=== PATIENT | male | born 1945 | race Caucasian/White ===

== ENCOUNTER 2016-08-03 09:42 | Day surgery (SDC) | payer MEDICARE, OTHER ==
[~2016-08-03] VITALS: Ht 177.8 cm; Wt 106.6 kg
[~2016-08-03 09:42] MED LIST changes: -CATHETER FLUSH 10 ML SYR IV PRN; -REGADENOSON 0.4 MG/5 ML SYR (LEXISCAN) IV ONE
[2016-08-03] MEDS ORDERED: NS IV 1000 ML 1,000 ML ONE (09:47)
[2016-08-03] MEDS ORDERED: HEParin (CATH LAB) 2,000 ML IV ONE ×2 (09:47→13:06)
[2016-08-03] MEDS ORDERED: NS IV 1000 ML 1,000 ML IV SCH ×2 (10:41→14:07)
[2016-08-03 10:47] VITALS: BP 151/64
[2016-08-03 10:52] LABS: BILIRUBIN,URINE NEGATIVE (NEGATIVE); KETONES,URINE NEGATIVE (NEGATIVE); LEUKOCYTE ESTERASE ,URINE NEGATIVE (NEGATIVE); NITRITE,URINE NEGATIVE (NEGATIVE); PH,URINE 5 (5-9); PROTEIN,URINE 1+ (NEGATIVE); RED BLOOD COUNT 4.75 10^6/uL (4.35-5.85); RED CELL DISTRIBUTION WIDTH 14.2 % (10.0-14.5); UROBILINOGEN,URINE NORMAL (NORMAL); WHITE BLOOD COUNT 9.3 10^3/uL (4.3-11.0)
[2016-08-03 10:59] LABS: WBC,URINE 0-2 /HPF
--- NOTE | 2016-08-03 11:05 | Diagnostic Imaging Report ---
EXAMINATION: Portable upright radiograph of the chest. INDICATION: Abnormal stress test. COMPARISON: 03/18/15. FINDINGS: The heart size is mildly enlarged. There is a minimal vascular congestion. No effusion or pneumothorax. The mediastinum and julia appear unremarkable. IMPRESSION: Cardiomegaly. Minimal vascular congestion. Dictated by: Dictated on workstation # [id number]
[2016-08-03 11:06] LABS: PROTHROMBIN TIME PATIENT 13.1 SEC (12.2-14.7)
[2016-08-03] MEDS ORDERED: MIDAZOLAM 5 MG/5 ML (VERSED) VIAL ONE (11:13)
[2016-08-03] MEDS ORDERED: fentaNYL INJECTION 100 MCG/2 ML AMP ONE (11:13)
[2016-08-03 11:14] LABS: ALANINE AMINOTRANSFERASE 20 U/L (0-55); ALBUMIN 4.2 G/DL (3.2-4.5); ANION GAP 13 MMOL/L (5-14); ASPARTATE AMINO TRANSFERASE 19 U/L (5-34); BILIRUBIN,TOTAL 0.7 MG/DL (0.1-1.0); BLOOD UREA NITROGEN 14 MG/DL (7-18); BUN/CREATININE RATIO 15; CALCIUM 9.6 MG/DL (8.5-10.1); CARBON DIOXIDE 20 MMOL/L (21-32); CHLORIDE 107 MMOL/L (98-107); CHOLESTEROL 232 MG/DL (< 200); CREATININE SERUM 0.93 MG/DL (0.60-1.30); DIRECT LDL 58 MG/DL (1-129); GFR ESTIMATED > 60; GLUCOSE 144 MG/DL (70-105); POTASSIUM 4.2 MMOL/L (3.6-5.0); SODIUM 140 MMOL/L (135-145); TOTAL PROTEIN 7.9 G/DL (6.4-8.2); TRIGLYCERIDES 665 MG/DL (<150); VLDL CHOLESTEROL 133 MG/DL (5-40)
--- NOTE | 2016-08-03 11:16 | Cardiac Procedure Note-CS/ASA ---
Pre-Procedure Note Pre-Op Procedure Note H&P Reviewed The H&P was reviewed, patient examined and no changes noted. Date H&P Reviewed: Aug 03, 2016 Time H&P Reviewed: 11:16 Conscious Sedation Pre-Proced Time Reviewed: 11:16 ASA Class: 2, 3 Airway Mallampati Classification: (twenty-nine palms appropriate class) I. II. III, IV Lungs Heart ASA score ASA 1: a normal healthy patient ASA 2: a patient with a mild systemic disease (mid diabetes, controlled hypertension, obesity x ASA 3: a patient with a severe systemic disease that limits activity (angina , COPD, prior Myocardial infarction) ASA 4: a patient with an incapacitating disease that is a constant threat to life (CHF, renal failure) ASA 5: a moribund patient not expected to survive 24 hrs. (ruptured aneurysm) ASA 6: a declared brain patient whose organs are being harvested. For emergent operations, add the letter E after the classification Grade 3 Sedation Plan: Analgesia, Amnesia, Plan communicated to team members, Discussed options with patient/fam, Discussed risks with patient/fam Note The patient is an appropriate candidate to undergo the planned procedure, sedation, and anesthesia. The patient immediately re-assessed prior to indication. ELISEO VALENTINO MD Aug 03, 2016 11:16
--- NOTE | 2016-08-03 11:16 | Cardiology History & Physical ---
HPI-Cardiology Cardiology Consultation Date of Consultation 08/03/16 Date of Admission Time Seen by Provider: 09:00 Indication: chest pain HPI 70 years old gentleman with history of diabetes mellitus, hypertension hyperlipidemia, history of DVT and PE in the past. Patient has been having occasional episode of chest pain described it as dull in nature in the retrosternal area, shortness of breath, patient was having a stress test this morning had significant EKG changes. He has significant ischemia. Dr. Freed requested that I evaluated the patient and I met him visited with him we discussed management plan and he agreed on proceeding with cardiac catheterization. He denied any active chest pain at this point, denied any shortness of breath. Denied any palpitation, syncope or near syncopal episodes. PMH-Cardiology Immunizations Up To Date Tetanus Booster (DTap): More than 5yrs Date of Pneumonia Vaccine: Nov 25, 2012 Date of Influenza Vaccine: Nov 25, 2014 Seasonal Allergies Seasonal Allergies: No Surgeries HX Surgeries: Yes (ING HERNIA, ESWL X2, WOUND DEBRIDEMENT ON RIGHT LEG) Surgeries: Vasectomy Respiratory Hx Respiratory Disorders: No Cardiovascular Hx Cardiovascular Disorders: Yes Cardiac Disorders: High Cholesterol, Hypertension Neurological Hx Neurological Disorders: No Reproductive System Hx Reproductive Disorders: No Genitourinary Hx Genitourinary Disorders: Yes Genitourinary Disorders: Kidney Stones Gastrointestinal Hx Gastrointestinal Disorders: No Musculoskeletal Hx Musculoskeletal Disorders: No Musculoskeletal Disorders: Arthritis Endocrine Hx Endocrine Disorders: Yes Endocrine Disorders: Hypothyroidsim, Diabetes, Non-Insulin dep HEENT HX ENT Disorders: No (small cataract) Hearing Impairment: Hard of Hearing Cancer Hx Cancer: No Cancer: Bladder Psychosocial Hx Psychiatric Problems: Yes Behavioral Health Disorders: Depression Integumentary HX Skin/Integumentary Disorder: Yes (cellulitis) Skin/Integumentary Disorders: Recent Skin Changes Blood Transfusions Hx Blood Disorders: No (hx of P.E.) Adverse Reaction to a Blood Tr: No Other PMHx Other PMHx: past medical history as discussed below Social History Patient Social History Marrital Status: Employed/Student: employed Alcohol Use: Denies Use Smoking: Former smoker Dip or chew tobacco?: No Recent Foreign Travel: No Contact w/other who traveled: No Recent Infectious Disease Expo: No Family Hx Significant Family History: Cancer Other family history of heart disease. Hypertension ROS-Cardiology Review of Systems Date Seen by Provider: Aug 03, 2016 Time Seen by Provider: 11:16 General: No Chills, No Night Sweats, No Fatigue, No Malaise, No Appetite HEENT: No Head Aches, No Visual Changes, No Eye Pain, No Ear Pain, No Dysphasia , No Sinus Congestion, No Post Nasal Drip, No Sore Throat Pulmonary: Dyspnea, No Cough, No Pleuritic Chest Pain Cardiovascular: Chest Pain, Edema, No: Lt Headedness, Orthopnea, Palpitations, Paroxysmal Noc. Dyspnea Gastrointestinal: No: Abdominal Pain, Constipation, Diarrhea, Hematochezia, Melena, Nausea, Vomiting Genitourinary: No Dysuria, No Frequency, No Incontinence, No Hematuria, No Retention Musculoskeletal: No: arm pain, back pain, foot pain, hand pain, leg pain, neck pain, shoulder pain Neurological: No: Change in speech, Confusion, Incoordination, Numbness, Seizures, Weakness Home Medications & Allergies Allergies: Coded Allergies: NKANo Known Allergies (Verified Allergy, Unknown, 05/18/05) Home Medication List Reviewed: Yes Exam-Cardiology Vital Signs Vital Signs Date Time Temp Pulse Resp B/P (MAP) Pulse Ox O2 Delivery O2 Flow Rate FiO2 08/03/16 10:47 97.9 88 18 151/64 98 Room Air Exam General Appearance: Alert, Oriented X3, Cooperative, No Acute Distress HEENT: Atraumatic, PERRLA Respiratory: Clear to Auscultation, Normal Air Movement Cardiovascular: Regular Rate, Normal S1, Normal S2, No Murmurs Abdominal: Normal Bowel Sounds, Soft, No Tenderness, No Hepatosplenomegaly, No Masses Extremities: No Clubbing, No Cyanosis, No Edema, Normal Pulses, No Tenderness/ Swelling Skin: No Rashes, No Breakdown, No Significant Lesion Neuro: Normal Gait, Normal Speech, Strength at 5/5 X4 Ext, Normal Tone, Sensation Intact Psych/Mental Status: Mental Status NL, Mood NL Results Labs Labs Laboratory Tests 08/03/16 10:10: White Blood Count 9.3, Red Blood Count 4.75, Hemoglobin 14.1, Hematocrit 41, Mean Corpuscular Volume 85, Mean Corpuscular Hemoglobin 30, Mean Corpuscular Hemoglobin Concent 35, Red Cell Distribution Width 14.2, Platelet Count 160, Mean Platelet Volume 11.0H, Prothrombin Time 13.1, INR Comment 1.0, Activated Partial Thromboplast Time 28, Urine Color YELLOW, Urine Clarity CLEAR, Urine pH 5, Urine Specific [place] 1.020, Urine Protein 1+H, Urine Glucose (UA) NEGATIVE , Urine Ketones NEGATIVE, Urine Nitrite NEGATIVE, Urine Bilirubin NEGATIVE, Urine Urobilinogen NORMAL, Urine Leukocyte Esterase NEGATIVE, Urine RBC (Auto) 2 +H, Urine RBC NONE, Urine WBC 0-2, Urine Squamous Epithelial Cells 2-5, Urine Crystals NONE, Urine Bacteria NEGATIVE, Urine Casts NONE, Urine Mucus NEGATIVE, Urine Culture Indicated NO A/P-Cardiology Admission Diagnosis Chest pain nonspecific etiology Coronary artery disease Hypertension Diabetes mellitus Assessment/Plan chest pain nonspecific etiology resembling angina. Planning to proceed with cardiac catheterization Coronary artery disease, abnormal stress test with ischemia involving the whole anterior wall anteroapical segment. Patient underwent stress test this morning had significant EKG changes with ischemic changes on her SPECT images, discussed the management plan for treatment with cardiac catheterization, planning to proceed with the procedure today. 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 Managed by primary physical sciences instructor. History of foot ulcer after his DVT, probably secondary to venous insufficiency. Underwent management by wound care. Doing better at this time. ELISEO VALENTINO MD Aug 03, 2016 11:16
[2016-08-03] MEDS ORDERED: HEParin 1000 UNIT/ML (10ML VIAL) FOR BOLUS ONE (13:41)
[2016-08-03] MEDS ORDERED: NITROGLYCERIN DRIP 25 MG/D5W 0 ML IV ONE (13:44)
--- NOTE | 2016-08-03 14:04 | Short Stay Summary ---
History of Present Illness History of Present Illness Reason for visit/HPI chest pain 70 years old gentleman with history of diabetes mellitus, hypertension hyperlipidemia, history of DVT and PE in the past. Patient has been having occasional episode of chest pain described it as dull in nature in the retrosternal area, shortness of breath, patient was having a stress test this morning had significant EKG changes. He has significant ischemia. Dr. Freed requested that I evaluated the patient and I met him visited with him we discussed management plan and he agreed on proceeding with cardiac catheterization. He denied any active chest pain at this point, denied any shortness of breath. Denied any palpitation, syncope or near syncopal episodes. Date of Admission August 03, 2016 Date of Discharge August 03, 2016 Time Seen by Provider: 13:58 Attending Physician Eliseo Agudelo MD Admitting Physician Genaro Freed DO Consult Allergies and Home Medications Allergies Coded Allergies: NKANo Known Allergies (Verified Allergy, Unknown, 05/18/05) Home Medications Aspirin 81 Mg Tablet.dr, 81 MG PO DAILY, (Reported) Ergocalciferol (Vitamin D2) 50,000 Unit Capsule, 50,000 UNIT PO Mo, (Reported) Escitalopram Oxalate 20 Mg Tablet, 20 MG PO DAILY, (Reported) Levothyroxine Sodium 50 Mcg Tablet, 50 MCG PO DAILY, (Reported) Lisinopril 20 Mg Tablet, 40 MG PO DAILY, (Reported) TAKES 2 (20MG) TABLETS Multivitamin 1 Each Tablet, 1 TAB PO DAILY, (Reported) Meridian 3 Polyunsat Fatty Acids 1,000 Mg Cap, 1,000 MG PO DAILY, (Reported) Rivaroxaban 20 Mg Tablet, 20 MG PO DAILY, (Reported) Past Wpriiir-Cmgruw-Clssel Hx Patient Social History Marrital Status: Employed/Student: employed Alcohol Use: Denies Use Recent Foreign Travel: No Contact w/other who traveled: No Recent Infectious Disease Expo: No Immunizations Up To Date Tetanus Booster (TDap): More than 5yrs Date of Pneumonia Vaccine: Nov 25, 2012 Date of Influenza Vaccine: Nov 25, 2014 Seasonal Allergies Seasonal Allergies: No Surgeries HX Surgeries: Yes (ING HERNIA, ESWL X2, WOUND DEBRIDEMENT ON RIGHT LEG) Surgeries: Abdominal, Renal, Vasectomy Respiratory Hx Respiratory Disorders: No Cardiovascular Hx Cardiovascular Disorders: Yes Cardiac Disorders: Chronic Edema/Swelling, Deep Vein Thrombosis, High Cholesterol, Hypertension Neurological Hx Neurological Disorders: No Reproductive System Hx Reproductive Disorders: No Genitourinary Hx Genitourinary Disorders: Yes Genitourinary Disorders: Kidney Stones Gastrointestinal Hx Gastrointestinal Disorders: No Musculoskeletal Hx Musculoskeletal Disorders: No Musculoskeletal Disorders: Arthritis Endocrine Hx Endocrine Disorders: Yes Endocrine Disorders: Hypothyroidsim, Diabetes, Non-Insulin dep HEENT HX ENT Disorders: No (small cataract) Hearing Impairment: Hard of Hearing Cancer Hx Cancer: No Cancer: Bladder Psychosocial Hx Psychiatric Problems: Yes Behavioral Health Disorders: Depression Integumentary HX Skin/Integumentary Disorder: Yes (cellulitis) Skin/Integumentary Disorders: Recent Skin Changes Blood Transfusions Hx Blood Disorders: No (hx of P.E.) Adverse Reaction to a Blood Tr: No Family Medical History Significant Family History: Cancer Constitutional: see HPI EENTM: see HPI Respiratory: see HPI, dyspnea on exertion Cardiovascular: see HPI, chest pain Gastrointestinal: see HPI Genitourinary: see HPI Musculoskeletal: see HPI Skin: see HPI Psychiatric/Neurological: No Symptoms Reported, See HPI Physical Exam Vital Signs Vital Sign - Last 12Hours 08/03/16 10:47 Temp 97.9 Pulse 88 Resp 18 B/P (MAP) 151/64 Pulse Ox 98 O2 Delivery Room Air Capillary Refill : General Appearance: No Apparent Distress, WD/WN Eyes: Bilateral Eye EOMI, Bilateral Eye Normal Inspection, Bilateral Eye PERRL HEENT: PERRL/EOMI, TMs Normal, Normal ENT Inspection, Pharynx Normal Neck: Full Range of Motion, Normal Inspection, Non Tender, Supple, Carotid Bruit Respiratory: Chest Non Tender, Lungs Clear, Normal Breath Sounds, No Accessory Muscle Use, No Respiratory Distress Cardiovascular: Regular Rate, Rhythm, No Edema, No Gallop, No JVD, No Murmur, Normal Peripheral Pulses Gastrointestinal: Normal Bowel Sounds, No Organomegaly, No Pulsatile Mass, Non Tender, Soft Back: Normal Inspection, No CVA Tenderness, No Vertebral Tenderness Extremity: Normal Capillary Refill, Normal Inspection, Normal Range of Motion, Non Tender, No Calf Tenderness, No Pedal Edema Neurologic/Psychiatric: Alert, Oriented x3, No Motor/Sensory Deficits, Normal Mood/Affect Skin: Normal Color, Warm/Dry Lymphatic: No Adenopathy Short Stay Diagnosis Discharge Diagnosis-Short Stay Admission Diagnosis: Chest pain nonspecific etiology Coronary artery disease Hypertension Diabetes mellitus Final Discharge Diagnosis: Chest pain nonspecific etiology Coronary artery disease Hypertension Diabetes mellitus Conclusion Labs Laboratory Tests 08/03/16 10:10: White Blood Count 9.3, Red Blood Count 4.75, Hemoglobin 14.1, Hematocrit 41, Mean Corpuscular Volume 85, Mean Corpuscular Hemoglobin 30, Mean Corpuscular Hemoglobin Concent 35, Red Cell Distribution Width 14.2, Platelet Count 160, Mean Platelet Volume 11.0H, Prothrombin Time 13.1, INR Comment 1.0, Activated Partial Thromboplast Time 28, Urine Color YELLOW, Urine Clarity CLEAR, Urine pH 5, Urine Specific [place] 1.020, Urine Protein 1+H, Urine Glucose (UA) NEGATIVE , Urine Ketones NEGATIVE, Urine Nitrite NEGATIVE, Urine Bilirubin NEGATIVE, Urine Urobilinogen NORMAL, Urine Leukocyte Esterase NEGATIVE, Urine RBC (Auto) 2 +H, Urine RBC NONE, Urine WBC 0-2, Urine Squamous Epithelial Cells 2-5, Urine Crystals NONE, Urine Bacteria NEGATIVE, Urine Casts NONE, Urine Mucus NEGATIVE, Urine Culture Indicated NO, Sodium Level 140, Potassium Level 4.2, Chloride Level 107, Carbon Dioxide Level 20L, Anion Gap 13, Blood Urea Nitrogen 14, Creatinine 0.93, Estimat Glomerular Filtration Rate > 60, BUN/Creatinine Ratio 15, Glucose Level 144H, Calcium Level 9.6, Total Bilirubin 0.7, Aspartate Amino Transf (AST/SGOT) 19, Alanine Aminotransferase (ALT/SGPT) 20, Alkaline Phosphatase 79, Total Protein 7.9, Albumin 4.2, Triglycerides Level 665H, Cholesterol Level 232H, LDL Cholesterol Direct 58, VLDL Cholesterol 133H, HDL Cholesterol 37L Conclusion/Plan chest pain nonspecific etiology resembling angina. Coronary artery disease, abnormal stress test with ischemia involving the whole anterior wall anteroapical segment. Patient underwent stress test this morning had significant EKG changes with ischemic changes on her SPECT images, cardiac catheterization showed severe disease in the mid LAD involving ostium of the diagonal artery, severe disease in the proximal dominant right coronary artery, ROSANA decreased left ventricular systolic function, planning to proceed with transfer to [facility] Dr. Powers was contacted, arrangements for evaluation for CABG was made. 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 Managed by primary compound mixer. History of foot ulcer after his DVT, probably secondary to venous insufficiency. Underwent management by wound care. Doing better at this time. ELISEO AGUDELO MD Aug 03, 2016 14:04
--- NOTE | 2016-08-03 14:05 | Cardiology Post Procedure Note ---
Post-Procedure Note Physician (s)/Washing Machine Loader And Puller (s) Physician ELIESO VALENTINO MD Pre-Procedure Diagnosis Pre-Procedure Diagnosis: open wound x2 right lower extremity Post-Procedure Note Procedure Start Date: Aug 03, 2016 Procedure Start Time: 14:05 Name of Procedure: [facility] Findings/Procedure Note CAD Anesthesia Type: Conscious Sedation Estimated blood loss (mL): 10 Contrast Amount: 64 Post-Procedure Diagnosis Post-operative diagnosis: CAD ELISEO VALENTINO MD Aug 03, 2016 14:05
--- NOTE | 2016-08-03 14:11 | Discharge Inst-Post CATH ---
Discharge Inst-CATH Post Cardiac Cath D/C Inst Follow Up/Plan Transfer to [facility] CARDIAC CATH DISCHARGE INSTRUCTIONS *Hold Metformin for 48 hours post heart cath. ACTIVITY * Go Home directly and rest. * Limit activity of the leg (or wrist if it was used) for 7 days including aerobics, swimming, jogging, bicycling, etc. * Restrict stair-climbing for 7 days if possible, if not, climb up with your non -cath leg, then bring together on the same step. * Avoid lifting, pushing, pulling or excessive movement of the affected extremity for 7 days. * Customary sexual activity may be resumed after 2 days-use caution not to use a position that strains or causes pain to the affected extremity. * No driving for 24 hours. * NO SMOKING. * Avoid straining for bowel movements for 7 days. * Gentle walking on level ground is allowed. * Returning to work will depend on the type of procedure and the results. Your doctor will discuss this with you. CALL YOUR DOCTOR FOR ANY OF THE FOLLOWING: *If bleeding from the puncture site occurs- Apply gentle pressure to site with clean cloth and call your doctor or EMS. * If a knot or lump forms under the skin, increases in size, or causes pain. * If bruising appears to be worsening or moving further down your leg instead of disappearing. * Temperature above 101 F. CARE OF YOUR GROIN INCISION; * Bruising or purple discoloration of the skin near the puncture site is common. * You may shower only, no bathtub bathing for 5 days. Be careful to avoid slipping as your leg may feel stiff. * If a closure device was used on your femoral artery, please see the attached guide regarding care of the device and your leg. * REMOVE the dressing from your groin the next day after your procedure in the shower. CARE OF YOUR WRIST INCISION; * Bruising or purple discoloration of the skin near the puncture site is common. * You may shower. * DO NOT submerge wrist. * Remove dressing in 24 hours. ELISEO VALENTINO MD Aug 03, 2016 14:10
[2016-08-03] MEDS ORDERED: PATIENT MAY USE OWN MEDS, ALL PO SCH (14:15)
[2016-08-03 14:22] VITALS: BP 144/91
[2016-08-03 15:31] VITALS: BP 125/63
[2016-08-03 16:00] VITALS: BP 126/69
--- NOTE | 2016-08-03 16:33 | CARDIAC CATHETERIZATION ---
DATE OF SERVICE: 08/03/2016 BRIEF HISTORY: The patient is a 70-year-old gentleman admitted with acute chest pain, had an abnormal stress test done earlier today. He was brought for cardiac catheterization and possible PTCA. PROCEDURE: After explaining the procedure to the patient, all pros and cons were explained, all questions were answered. The patient signed the consent then he was placed on the cardiac catheterization laboratory. The right groin was prepped in sterile fashion. Local anesthesia applied per right groin. A 6 Cypriot sheath was placed in the right femoral artery. A combination of right and left Darrell catheters were used to access the right and left coronary system. Multiple views were obtained. Pigtail catheter advanced to the left ventricle. Left ventriculogram was done. Pullback LV to aorta was done. Aortic arch angiogram was done. At that point sheath was removed, Mynx device deployed, hemostasis achieved. FINDINGS HEMODYNAMICS: LV Pressure 116/17, end diastolic pressure of 17, aortic pressure is 126/71, mean of 65. ANATOMY: 1. Left main coronary artery bifurcates into LAD and circumflex artery with no obstructive disease. 2. Left anterior descending artery is moderate in size, 95% stenosis involving the proximal to mid LAD. Long lesion involving the ostium of a second diagonal branch. 3. Left circumflex artery is a nondominant artery with mild disease, nonobstructive disease. 4. Right coronary artery is a large dominant artery with ulcerative plaque in the proximal portion with 95% stenosis. 6. Left ventriculogram was done in the left anterior oblique position. The left ventricle is normal in size, mild diffuse left ventricular hypokinesia with an estimated ejection fraction of 40% to 45%. 7. Aortic arch angiogram: Aortic arch is normal in size, mild hypertensive changes. Origin of the great neck vessels appeared normal. CONCLUSION: 1. Severe 3 vessel disease including a long segment of 95% stenosis in the proximal to mid LAD involving the ostium of the second diagonal branch. Severe stenosis with ulcerated plaque in the proximal right coronary artery that is large dominant artery. 2. Normal left ventricular size with mild diffuse left ventricular hypokinesia, more pronounced at the inferior wall, hypokinesia at the anterior wall. Estimated ejection fraction 40% to 45%. 3. Hypertensive changes in the aortic arch. DISCUSSION AND RECOMMENDATIONS: The patient will be transferred for evaluation for CABG or high risk complex intervention. Job ID: [id number] DocumentID: [id number] Dictated Date: 08/03/2016 14:09:40 Quill Winder Date: 08/03/2016 16:32:19 Dictated By: ELISEO VALENTINO MD
[2016-08-03 17:00] VITALS: BP 125/69
[2016-08-03 17:55] VITALS: BP 126/80
--- OUTSIDE RECORDS SUMMARY | 2016-08-13 17:01 | XMS REPORT | Continuity of Care Document ---
Author Author [facility] Organization [facility] Address Unknown Phone Unavailable Allergies Active Description Code Type Severity Reaction Onset Reported/Identified Relationship to Patient Clinical Status Yes NKANo Known Allergies NKA Miscellaneous Allergy Unknown N/ A 05/18/2005 Medications Problems Date Dx Coded Attending Type Code Diagnosis Diagnosed By 05/17/2011 Ot 250.00 DIAB JHONNY WO COMPL, TYPE II OR UNSPEC TY 05/17/2011 Ot 592.0 CALCULUS OF KIDNEY 05/17/2011 Ot 592.1 CALCULUS OF URETER 10/04/2011 Ot 592.0 CALCULUS OF KIDNEY 10/04/2011 Ot V58.69 OTH MED,LT,CURRENT USE 12/01/2011 Ot 244.9 HYPOTHYROIDISM NOS 12/01/2011 Ot 250.00 DIAB JHONNY WO COMPL, TYPE II OR UNSPEC TY 12/01/2011 Ot 272.4 HYPERLIPIDEMIA NEC/NOS 12/01/2011 Ot 278.00 OBESITY, NOS 12/01/2011 Ot 287.5 THROMBOCYTOPENIA NOS 12/01/2011 Ot 401.0 MALIGNANT HYPERTENSION 12/01/2011 Ot 453.41 ACUTE VENOUS EMBOLISM THROMBOSIS DEEP 12/01/2011 Ot V85.33 BODY MASS INDEX 33.0-33.9, ADULT 09/15/2014 Ot 592.0 09/15/2014 Ot 592.0 09/15/2014 Ot 592.1 09/15/2014 Ot 592.0 09/15/2014 Ot 592.1 09/15/2014 Ot 592.0 09/15/2014 Ot 592.1 09/15/2014 Ot 592.0 09/15/2014 Ot V72.63 09/15/2014 Ot V74.8 09/15/2014 Ot 592.1 09/15/2014 Ot 592.0 09/15/2014 Ot 592.0 09/15/2014 Ot V72.83 09/15/2014 Ot V74.8 09/15/2014 Ot 592.0 09/15/2014 LENORA BURTON Ot 241.0 09/15/2014 JOVAN BURTON DO Ot 241.0 09/15/2014 Ot 592.0 09/15/2014 Ot 592.0 09/15/2014 Ot 592.1 09/15/2014 Ot 592.0 09/15/2014 Ot 592.1 09/15/2014 Ot 592.0 09/15/2014 Ot 592.1 09/15/2014 Ot 592.0 09/15/2014 Ot V72.63 09/15/2014 Ot V74.8 09/15/2014 Ot 592.1 09/15/2014 Ot 592.0 09/15/2014 Ot 592.0 09/15/2014 Ot V72.83 09/15/2014 Ot V74.8 09/15/2014 Ot 592.0 09/15/2014 LENORA BURTON AGILE SCRUM MASTER Ot 241.0 09/15/2014 JOVAN BURTON DO Ot 241.0 09/15/2014 LENORA BURTON AGILE SCRUM MASTER Ot 241.0 09/15/2014 JOVAN BURTON DO Ot 241.0 09/15/2014 LAURA PANTOJA, AYSHA Villar Ot 276.2 ACIDOSIS 09/15/2014 LAURA PANTOJA, AYSHA Villar Ot 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.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/INFARCT 09/15/2014 LAURA PANTOJA, AYSHA Villar Ot 682.6 CELLULITIS OF LEG 09/15/2014 LAURA PANTOJA, AYSHA Villar Ot 786.05 SHORTNESS OF BREATH 03/15/2015 JOVAN BURTON DO Ot B96.20 UNSP ESCHERICHIA COLI THE CAUSE OF DI 03/15/2015 JOVAN BURTON DO Ot B96.89 OTH BACTERIAL AGENTS THE CAUSE OF DIS 03/15/2015 JOVAN BURTON DO Ot E03.9 HYPOTHYROIDISM, UNSPECIFIED 03/15/2015 JOVAN BURTON DO Ot E11.52 TYPE 2 DIABETES W DIABETIC PERIPHERAL AN 03/15/2015 JOVAN BURTON DO Ot E78.0 PURE HYPERCHOLESTEROLEMIA 03/15/2015 JOVAN BURTON DO Ot F32.9 MAJOR DEPRESSIVE DISORDER, SINGLE EPISOD 03/15/2015 JOVAN BURTON DO Ot I10 ESSENTIAL (PRIMARY) HYPERTENSION 03/15/2015 JOVAN BURTON DO Ot I77.6 ARTERITIS, UNSPECIFIED 03/15/2015 JOVAN BURTON DO Ot I82.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 EMBOLISM AND THROMBOSIS OF RIGHT 03/15/2015 JOVAN BURTON DO Ot I96 03/15/2015 JOVAN BURTON DO Ot L03.115 CELLULITIS OF RIGHT LOWER LIMB 03/15/2015 JOVAN BURTON DO Ot R21 RASH AND OTHER NONSPECIFIC SKIN ERUPTION 03/15/2015 JOVAN BURTON DO, Ot Z86.711 PERSONAL HISTORY OF PULMONARY EMBOLISM 03/18/2015 MICHEAL LENORA Nani LATIF Ot 241.0 03/18/2015 JOVAN BURTON DO Ot 241.0 03/21/2015 MATIAS ACEVEDO DO Ot 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 03/21/2015 MATIAS ACEVEDO DO Ot E03.9 HYPOTHYROIDISM, UNSPECIFIED 03/21/2015 MATIAS ACEVEDO DO Ot E11.9 TYPE 2 DIABETES MELLITUS WITHOUT COMPLIC 03/21/2015 MATIAS ACEVEDO DO Ot E66.01 MORBID (SEVERE) OBESITY DUE TO EXCESS CA 03/21/2015 MATIAS ACEVEDO DO Ot F32.9 MAJOR DEPRESSIVE DISORDER, SINGLE EPISOD 03/21/2015 MATIAS ACEVEDO DO Ot I10 ESSENTIAL (PRIMARY) HYPERTENSION 03/21/2015 MATIAS ACEVEDO DO Ot I77.6 ARTERITIS, UNSPECIFIED 03/21/2015 MATIAS ACEVEDO DO Ot I87.031 POSTTHROM SYNDROME W ULCER AND INFLAMMAT 03/21/2015 MATIAS ACEVEDO DO Ot I87.2 VENOUS INSUFFICIENCY (CHRONIC) (PERIPHER 03/21/2015 MATIAS ACEVEDO DO Ot I96 GANGRENE, NOT ELSEWHERE CLASSIFIED 03/21/2015 MATIAS ACEVEDO DO Ot L03.113 CELLULITIS OF RIGHT UPPER LIMB 03/21/2015 MATIAS ACEVEDO DO Ot L97.212 NON-PRESSURE CHRONIC ULCER OF RIGHT CALF 03/21/2015 MATIAS ACEVEDO DO Ot Z68.34 BODY MASS INDEX (BMI) 34.0-34.9, ADULT 03/21/2015 MATIAS ACEVEDO DO Ot Z79.01 WARNING COORDINATION METEOROLOGIST (CURRENT) USE OF ANTICOAGULANT 03/21/2015 MATIAS ACEVEDO DO Ot Z86.711 PERSONAL HISTORY OF PULMONARY EMBOLISM 03/21/2015 MATIAS ACEVEDO DO Ot Z86.718 PERSONAL HISTORY OF OTHER VENOUS THROMBO 03/23/2015 MICHEALLENORAP Ot 241.0 03/23/2015 MICHEAL JOVAN GARCÍA Ot 241.0 03/23/2015 STEPAN PANTOJA, NICCI Padilla Ot I87.031 03/23/2015 STEPAN PANTOJA, NICCI Padilla Ot I96 03/23/2015 STEPAN PANTOJA, NICCI Padilla Ot L03.115 03/23/2015 STEPAN PANTOJA, NICCI Padilla Ot L95.9 03/23/2015 STEPAN PANTOJA, NICCI Padilla Ot L97.213 04/11/2015 JASPER PANTOJA, RAJENDRA Sage Ot B95.61 04/11/2015 JASPER PANTOJA, RAJENDRA Sage Ot L03.115 04/12/2015 JASPER PANTOJA, RAJENDRA K Ot B95.61 04/12/2015 JASPER PANTOJA, RAJENDRA K Ot L03.115 04/13/2015 JASPER PANTOJA, RAJENDRA K Ot B95.61 04/13/2015 JASPER PANTOJA, RAJENDRA K Ot L03.115 04/14/2015 JASPER PANTOJA, RAJENDRA K Ot B95.61 04/14/2015 JASPER PANTOJA, RAJENDRA K Ot L03.115 04/15/2015 JASPER PANTOJA, RAJENDRA K Ot B95.61 04/15/2015 JASPER PANTOJA, RAJENDRA K Ot L03.115 04/16/2015 JASPER PANTOJA, RAJENDRA K Ot B95.61 04/16/2015 JASPER PANTOJA, RAJENDRA K Ot L03.115 04/16/2015 JASPER PANTOJA, RAJENDRA K Ot B95.61 04/16/2015 JASPER PANTOJA, RAJEDNRA K Ot L03.115 04/17/2015 JASPER PANTOJA, RAJENDRA K Ot B95.61 04/17/2015 JASPER PANTOJA, RAJENDRA Sage Ot L03.115 04/17/2015 JASPER PANTOJA, RAJENDRA K Ot B95.61 04/17/2015 JASPER PANTOJA, RAJENDRA K Ot L03.115 04/18/2015 JASPER PANTOJA, RAJENDRA K Ot B95.61 04/18/2015 JASPER PANTOJA, RAJENDRA K Ot L03.115 04/19/2015 JASPER PANTOJA, RAJENDRA Sage Ot B95.61 04/19/2015 JASPER PANTOJA, RAJENDRA Sage Ot L03.115 04/20/2015 JASPER PANTOJA, RAJENDRA Sage Ot B95.61 04/20/2015 JASPER PANTOJA, RAJENDRA Sage Ot L03.115 04/20/2015 JASPER PANTOJA, RAJENDRA Sage Ot B95.61 04/20/2015 JASPER PANTOJA, RAJENDRA Sage Ot L03.115 04/21/2015 JASPER PANTOJA, RAJENDRA Sage Ot B95.61 04/21/2015 JASPER PANTOJA, RAJENDRA Sage Ot L03.115 04/22/2015 JASPER PANTOJA, RAJENDRA Sage Ot B95.61 04/22/2015 JASPER PANTOJA, RAJENDRA Sage Ot L03.115 04/27/2015 JASPER PANTOJA, RAJENDRA Sage Ot B95.61 04/27/2015 JASPER PANTOJA, RAJENDRA Sage Ot L03.115 05/04/2015 STEPAN PANTOJA, NICCI Padilla Ot I87.031 05/04/2015 STEPAN PANTOJA, NICCI Padilla Ot I96 05/04/2015 STEPAN PANTOJA, NICCI Padilla Ot L03.115 05/04/2015 STEPAN PANTOJA, INCCI Padilla Ot L95.9 05/04/2015 STEPAN PANTOJA, NICCI Padilla Ot L97.213 05/06/2015 JASPER PANTOJA, RAJENDRA Sage Ot B95.61 05/06/2015 JASPER PANTOJA, RAJENDRA Sage Ot L03.115 05/09/2015 STEPAN PANTOJA, NICCI Padilla Ot I87.031 05/09/2015 STEPAN PANTOJA, NICCI Padilla Ot I96 05/09/2015 STEPAN PANTOJA, NICCI Padilla Ot L03.115 05/09/2015 STEPAN PANTOJA, NICCI Padilla Ot L95.9 05/09/2015 STEPAN PANTOJA, NICCI Padilla Ot L97.213 05/13/2015 JASPER PANTOJA, RAJENDRA Sage Ot B95.61 05/13/2015 JASPER PANTOJA, RAJENDRA Sage Ot L03.115 05/20/2015 JASPER PANTOJA, RAJENDRA Sage Ot B95.61 05/20/2015 JASPER PANTOJA, RAJENDRA Sage Ot L03.115 05/25/2015 NICOLASA PANTOJA, GUILLAUME Ot L03.115 CELLULITIS OF RIGHT LOWER LIMB 05/25/2015 NICOLASA PANTOJA, GUILLAUME Ot Z01.818 ENCOUNTER FOR OTHER PREPROCEDURAL EXAMIN 05/25/2015 NICOLASA PANTOJA, GUILLAUME Ot Z11.2 ENCOUNTER FOR SCREENING FOR OTHER BACTER 05/26/2015 NICOLASA PANTOJA, GUILLAUME Ot I96 GANGRENE, NOT ELSEWHERE CLASSIFIED 05/26/2015 GUILLAUME BALDWIN MD Ot Z79.899 OTHER WARNING COORDINATION METEOROLOGIST (CURRENT) DRUG THERAPY 05/31/2015 NICOLASA PANTOJA, GUILLAUME Ot L03.115 05/31/2015 GUILLAUME BALDWIN MD Ot Z01.818 05/31/2015 GUILLAUME BALDWIN MD Ot Z11.2 05/31/2015 LENORA BURTON Ot 241.0 05/31/2015 JOVAN BURTON DO Ot 241.0 05/31/2015 STEPAN PANTOJA, NICCI Padilla Ot I87.031 05/31/2015 STEPAN PANTOJA, NICCI Padilla Ot I96 05/31/2015 STEPAN PANTOJA, NICCI Padilla Ot L03.115 05/31/2015 STEPAN PANTOJA, NICCI Padilla Ot L95.9 05/31/2015 STEPAN PANTOJA, NICCI Padilla Ot L97.213 05/31/2015 JASPER PANTOJA, RAJENDRA Sage Ot B95.61 05/31/2015 JASPER PANTOJA, RAJENDRA Sage Ot L03.115 06/02/2015 JASPER PANTOJA, RAJENDRA Sage Ot B95.61 06/02/2015 JASPER PANTOJA, RAJENDRA Sage Ot L03.115 06/02/2015 NICOLASA PANTOJA, GUILLAUME Ot I96 06/02/2015 GUILLAUME BALDWIN MD Ot Z79.899 06/03/2015 RAJENDRA HUTCHINSON MD Ot B95.61 06/03/2015 JASPER PANTOJA, RAJENDRA Sage Ot L03.115 06/07/2015 LINDSAY MALA L TOOL MECHANIC Ot I87.331 06/07/2015 LINDSAY, MALA L TOOL MECHANIC Ot L97.213 06/07/2015 LINDSAY, MALA L TOOL MECHANIC Ot M72.6 06/09/2015 LINDSAY MALA L TOOL MECHANIC Ot I87.331 06/09/2015 LINDSAY, MALA L TOOL MECHANIC Ot L97.213 06/09/2015 LINDSAY MALA L TOOL MECHANIC Ot M72.6 06/10/2015 LINDSAY MALA L TOOL MECHANIC Ot I87.331 CHRONIC VENOUS HTN W ULCER AND INFLAMMAT 06/10/2015 LINDSAY, MALA L TOOL MECHANIC Ot L97.213 NON-PRS CHRONIC ULCER OF RIGHT CALF W NE 06/10/2015 LINDSAY, MALA L TOOL MECHANIC Ot M72.6 NECROTIZING FASCIITIS 06/11/2015 LINDSAY, MALA L TOOL MECHANIC Ot I87.331 CHRONIC VENOUS HTN W ULCER AND INFLAMMAT 06/11/2015 LINDSAY, MALA L TOOL MECHANIC Ot L97.213 NON-PRS CHRONIC ULCER OF RIGHT CALF W NE 06/11/2015 LINDSAY, MALA L TOOL MECHANIC Ot M72.6 NECROTIZING FASCIITIS 06/12/2015 LINDSAY, MALA L TOOL MECHANIC Ot I87.331 CHRONIC VENOUS HTN W ULCER AND INFLAMMAT 06/12/2015 LINDSAY, MALA L TOOL MECHANIC Ot L97.213 NON-PRS CHRONIC ULCER OF RIGHT CALF W NE 06/12/2015 LINDSAY, MALA L TOOL MECHANIC Ot M72.6 NECROTIZING FASCIITIS 06/13/2015 LINDSAY, MALA L TOOL MECHANIC Ot I87.331 CHRONIC VENOUS HTN W ULCER AND INFLAMMAT 06/13/2015 LINDSAY, MALA L TOOL MECHANIC Ot L97.213 NON-PRS CHRONIC ULCER OF RIGHT CALF W NE 06/13/2015 LINDSAY, MALA L TOOL MECHANIC Ot M72.6 NECROTIZING FASCIITIS 06/14/2015 LINDSAY, MALA L TOOL MECHANIC Ot I87.331 CHRONIC VENOUS HTN W ULCER AND INFLAMMAT 06/14/2015 LINDSAY, MALA L TOOL MECHANIC Ot L97.213 NON-PRS CHRONIC ULCER OF RIGHT CALF W NE 06/14/2015 LINDSAY, MALA L TOOL MECHANIC Ot M72.6 NECROTIZING FASCIITIS 06/15/2015 LINDSAY, MALA L TOOL MECHANIC Ot I87.331 CHRONIC VENOUS HTN W ULCER AND INFLAMMAT 06/15/2015 LINDSAY, MALA L TOOL MECHANIC Ot L97.213 NON-PRS CHRONIC ULCER OF RIGHT CALF W NE 06/15/2015 LINDSAY, MALA L TOOL MECHANIC Ot M72.6 NECROTIZING FASCIITIS 06/16/2015 STEPAN PANTOJA, NICCI Padilla Ot I87.031 POSTTHROM SYNDROME W ULCER AND INFLAMMAT 06/16/2015 STEPAN PANTOJA, NICCI Padilla Ot I96 GANGRENE, NOT ELSEWHERE CLASSIFIED 06/16/2015 STEPAN PANTOJA, NICCI Padilla Ot L03.115 CELLULITIS OF RIGHT LOWER LIMB 06/16/2015 NICCI YING MD Ot L95.9 VASCULITIS LIMITED TO THE SKIN, UNSPECIF 06/16/2015 NICCI YING MD, Ot L97.213 NON-PRS CHRONIC ULCER OF RIGHT CALF W NE 06/16/2015 RAJENDRA HUTCHINSON MD Ot 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 06/16/2015 RAJENDRA HUTCHINSON MD Ot I87.031 POSTTHROM SYNDROME W ULCER AND INFLAMMAT 06/16/2015 RAJENDRA HUTCHINSON MD, Ot I96 GANGRENE, NOT ELSEWHERE CLASSIFIED 06/16/2015 RAJENDRA HUTCHINSON MD Ot L03.115 CELLULITIS OF RIGHT LOWER LIMB 06/16/2015 RAJENDRA HUTCHINSON MD, Ot L95.9 VASCULITIS LIMITED TO THE SKIN, UNSPECIF 06/16/2015 RAJENDRA HUTCHINSON MD, Ot L97.213 NON-PRS CHRONIC ULCER OF RIGHT CALF W NE 06/16/2015 ANUJA MONTOYAIN L TOOL MECHANIC Ot I87.331 CHRONIC VENOUS HTN W ULCER AND INFLAMMAT 06/16/2015 ANUJA MONTOYAIN Nani TOOL MECHANIC Ot L97.213 NON-PRS CHRONIC ULCER OF RIGHT CALF W NE 06/16/2015 ANUJA MONTOYAIN L TOOL MECHANIC Ot M72.6 NECROTIZING FASCIITIS 06/17/2015 ANUJA MONTOYAIN L TOOL MECHANIC Ot I87.331 CHRONIC VENOUS HTN W ULCER AND INFLAMMAT 06/17/2015 ANUJA MONTOYAIN L TOOL MECHANIC Ot L97.213 NON-PRS CHRONIC ULCER OF RIGHT CALF W NE 06/17/2015 ANUJA MONTOYAIN L TOOL MECHANIC Ot M72.6 NECROTIZING FASCIITIS 06/17/2015 RAJENDRA HUTCHINSON MD Ot 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 06/17/2015 RAJENDRA HUTCHINSON MD Ot L03.115 CELLULITIS OF RIGHT LOWER LIMB 06/20/2015 NICCI YING MD Ot I87.031 POSTTHROM SYNDROME W ULCER AND INFLAMMAT 06/20/2015 NICCI YING MD Ot I87.331 CHRONIC VENOUS HTN W ULCER AND INFLAMMAT 06/20/2015 NICCI YING MD Ot I96 GANGRENE, NOT ELSEWHERE CLASSIFIED 06/20/2015 NICCI YING MD Ot L03.115 CELLULITIS OF RIGHT LOWER LIMB 06/20/2015 NICCI YING MD, Ot L95.9 VASCULITIS LIMITED TO THE SKIN, UNSPECIF 06/20/2015 NICCI YING MD Ot L97.213 NON-PRS CHRONIC ULCER OF RIGHT CALF W NE 06/20/2015 NICCI YING MD Ot M72.6 NECROTIZING FASCIITIS 06/21/2015 LINDSAY MALA L TOOL MECHANIC Ot I87.331 CHRONIC VENOUS HTN W ULCER AND INFLAMMAT 06/21/2015 LINDSAY, MALA L TOOL MECHANIC Ot L97.213 NON-PRS CHRONIC ULCER OF RIGHT CALF W NE 06/21/2015 LINDSAY MALA L TOOL MECHANIC Ot M72.6 NECROTIZING FASCIITIS 06/22/2015 LINDSAY, MALA L TOOL MECHANIC Ot I87.331 CHRONIC VENOUS HTN W ULCER AND INFLAMMAT 06/22/2015 LINDSAY MALA L TOOL MECHANIC Ot L97.213 NON-PRS CHRONIC ULCER OF RIGHT CALF W NE 06/22/2015 LINDSAY MALA L TOOL MECHANIC Ot M72.6 NECROTIZING FASCIITIS 06/22/2015 NICCI YING MD Ot I87.031 POSTTHROM SYNDROME W ULCER AND INFLAMMAT 06/22/2015 NICCI YING MD Ot I96 GANGRENE, NOT ELSEWHERE CLASSIFIED 06/22/2015 NICCI YING MD Ot L03.115 CELLULITIS OF RIGHT LOWER LIMB 06/22/2015 NICCI YING MD Ot L95.9 VASCULITIS LIMITED TO THE SKIN, UNSPECIF 06/22/2015 NICCI YING MD Ot L97.213 NON-PRS CHRONIC ULCER OF RIGHT CALF W NE 06/23/2015 LINDSAY MALA L TOOL MECHANIC Ot I87.331 CHRONIC VENOUS HTN W ULCER AND INFLAMMAT 06/23/2015 LINDSAY MALA L TOOL MECHANIC Ot L97.213 NON-PRS CHRONIC ULCER OF RIGHT CALF W NE 06/23/2015 LINDSAY MALA L TOOL MECHANIC Ot M72.6 NECROTIZING FASCIITIS 06/24/2015 LINDSAY MALA L TOOL MECHANIC Ot I87.331 CHRONIC VENOUS HTN W ULCER AND INFLAMMAT 06/24/2015 LINDSAY MALA L TOOL MECHANIC Ot L97.213 NON-PRS CHRONIC ULCER OF RIGHT CALF W NE 06/24/2015 LINDSAY MALA L TOOL MECHANIC Ot M72.6 NECROTIZING FASCIITIS 06/27/2015 LINDSAY MALA L TOOL MECHANIC Ot I87.331 CHRONIC VENOUS HTN W ULCER AND INFLAMMAT 06/27/2015 LINDSAY, MALA L TOOL MECHANIC Ot L97.213 NON-PRS CHRONIC ULCER OF RIGHT CALF W NE 06/27/2015 LINDSAY, MALA L TOOL MECHANIC Ot M72.6 NECROTIZING FASCIITIS 06/28/2015 LINDSAY, MALA L TOOL MECHANIC Ot I87.331 CHRONIC VENOUS HTN W ULCER AND INFLAMMAT 06/28/2015 LINDSAY, MALA L TOOL MECHANIC Ot L97.213 NON-PRS CHRONIC ULCER OF RIGHT CALF W NE 06/28/2015 LINDASY, MALA L TOOL MECHANIC Ot M72.6 NECROTIZING FASCIITIS 06/29/2015 LINDSAY, MALA L TOOL MECHANIC Ot I87.331 CHRONIC VENOUS HTN W ULCER AND INFLAMMAT 06/29/2015 LINDSAY, MALA L TOOL MECHANIC Ot L97.213 NON-PRS CHRONIC ULCER OF RIGHT CALF W NE 06/29/2015 LINDSAY, MALA L TOOL MECHANIC Ot M72.6 NECROTIZING FASCIITIS 06/30/2015 LINDSAY, MALA L TOOL MECHANIC Ot I87.331 CHRONIC VENOUS HTN W ULCER AND INFLAMMAT 06/30/2015 LINDSAY, AMLA L TOOL MECHANIC Ot L97.213 NON-PRS CHRONIC ULCER OF RIGHT CALF W NE 06/30/2015 LINDSAY, MALA L TOOL MECHANIC Ot M72.6 NECROTIZING FASCIITIS 07/07/2015 LINDSAY, MALA L TOOL MECHANIC Ot I87.331 CHRONIC VENOUS HTN W ULCER AND INFLAMMAT 07/07/2015 LINDSAY, MALA L TOOL MECHANIC Ot L97.213 NON-PRS CHRONIC ULCER OF RIGHT CALF W NE 07/07/2015 LINDSAY, MALA L TOOL MECHANIC Ot M72.6 NECROTIZING FASCIITIS 07/18/2015 LINDSAY, MALA L TOOL MECHANIC Ot I87.331 CHRONIC VENOUS HTN W ULCER AND INFLAMMAT 07/18/2015 LINDSAY, MALA L TOOL MECHANIC Ot L97.213 NON-PRS CHRONIC ULCER OF RIGHT CALF W NE 07/18/2015 LINDSAY, MALA L TOOL MECHANIC Ot M72.6 NECROTIZING FASCIITIS 09/26/2015 STEPAN PANTOJA, NICCI Padilla Ot I87.031 POSTTHROM SYNDROME W ULCER AND INFLAMMAT 09/26/2015 STEPAN PANTOJA, NICCI Padilla Ot I96 GANGRENE, NOT ELSEWHERE CLASSIFIED 09/26/2015 STEPAN PANTOJA, NICCI Padilla Ot L03.115 CELLULITIS OF RIGHT LOWER LIMB 09/26/2015 NICCI YING MD Ot L95.9 VASCULITIS LIMITED TO THE SKIN, UNSPECIF 09/26/2015 NICCI YING MD Ot L97.213 NON-PRS CHRONIC ULCER OF RIGHT CALF W NE 10/07/2015 RAJENDRA HUTCHINSON MD Ot 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 10/07/2015 RAJENDRA HUTCHINSON MD Ot L03.115 CELLULITIS OF RIGHT LOWER LIMB 10/13/2015 RAJENDRA HUTCHINSON MD Ot 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 10/13/2015 RAJENDRA HUTCHINSON MD Ot L03.115 CELLULITIS OF RIGHT LOWER LIMB 11/26/2015 NICCI YING MD Ot I87.031 POSTTHROM SYNDROME W ULCER AND INFLAMMAT 11/26/2015 NICCI YING MD Ot I96 GANGRENE, NOT ELSEWHERE CLASSIFIED 11/26/2015 NICCI YING MD Ot L03.115 CELLULITIS OF RIGHT LOWER LIMB 11/26/2015 NICCI YING MD Ot L95.9 VASCULITIS LIMITED TO THE SKIN, UNSPECIF 11/26/2015 NICCI YING MD Ot L97.213 NON-PRS CHRONIC ULCER OF RIGHT CALF W NE 02/22/2016 Ot 592.0 CALCULUS OF KIDNEY 02/22/2016 Ot 592.1 CALCULUS OF URETER 02/22/2016 Ot 592.0 CALCULUS OF KIDNEY 02/22/2016 Ot V72.63 PRE-PROCEDURAL LABORATORY EXAMINATION 02/22/2016 Ot V74.8 SCREEN-BACTERIAL DIS NEC 02/22/2016 Ot 592.1 CALCULUS OF URETER 02/22/2016 Ot 592.0 CALCULUS OF KIDNEY 02/22/2016 Ot 592.0 CALCULUS OF KIDNEY 02/22/2016 Ot V72.83 EXAM PRE-OPERATIVE NEC 02/22/2016 Ot V74.8 SCREEN-BACTERIAL DIS NEC 02/22/2016 Ot 592.0 CALCULUS OF KIDNEY 02/22/2016 LENORA BURTON Ot 241.0 NONTOX UNINODULAR GOITER 02/22/2016 JOVAN BURTON DO Ot 241.0 NONTOX UNINODULAR GOITER 02/26/2016 NICCI YING MD Ot I87.031 POSTTHROM SYNDROME W ULCER AND INFLAMMAT 02/26/2016 NICCI YING MD, Ot I96 GANGRENE, NOT ELSEWHERE CLASSIFIED 02/26/2016 NICCI YING MD Ot L03.115 CELLULITIS OF RIGHT LOWER LIMB 02/26/2016 NICCI YING MD Ot L95.9 VASCULITIS LIMITED TO THE SKIN, UNSPECIF 02/26/2016 NICCI YING MD, Ot L97.213 NON-PRS CHRONIC ULCER OF RIGHT CALF W NE 08/01/2016 LENORA BURTON AGILE SCRUM MASTER Ot 241.0 NONTOX UNINODULAR GOITER 08/01/2016 JOVAN BURTON DO Ot 241.0 NONTOX UNINODULAR GOITER 08/01/2016 RAJENDRA HUTCHINSON MD Ot 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 08/01/2016 RAJENDRA HUTCHINSON MD Ot L03.115 CELLULITIS OF RIGHT LOWER LIMB 08/01/2016 RAJENDRA HUTCHINSON MD Ot 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 08/01/2016 RAJENDRA HUTCHINSON MD Ot L03.115 CELLULITIS OF RIGHT LOWER LIMB 08/01/2016 LENORA BURTON AGILE SCRUM MASTER Ot 241.0 NONTOX UNINODULAR GOITER 08/01/2016 JOVAN BURTON DO Ot 241.0 NONTOX UNINODULAR GOITER 08/01/2016 RAJENDRA HUTCHINSON MD Ot 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 08/01/2016 RAJENDRA HUTCHINSON MD Ot L03.115 CELLULITIS OF RIGHT LOWER LIMB 08/03/2016 RAJENDRA HUTCHINSON MD Ot 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 08/03/2016 RAJENDRA HUTCHINSON MD Ot L03.115 CELLULITIS OF RIGHT LOWER LIMB Procedures Code Description Performed By Performed On [id number] EXCISION OF R LOW LEG SUBCU/FASCIA, OPEN 03/10/2015 [id number] INSERTION OF INFUSION DEV INTO SUP VENA 03/18/2015 Results Test Result Range Automated blood complete blood count (hemogram) panel - 08/03/16 10:10 Blood leukocytes automated count (number/volume) 9.3 10*3/ uL 4.3-11.0 Blood erythrocytes automated count (number/volume) 4.75 10*6 /uL 4.35-5.85 Venous blood hemoglobin measurement (mass/volume) 14.1 g/dL 13.3-17.7 Blood hematocrit (volume fraction) 41 % 40-54 Automated erythrocyte mean corpuscular volume 85 [foz_us] 80-99 Automated erythrocyte mean corpuscular hemoglobin (mass per erythrocyte) 30 pg 25-34 Automated erythrocyte mean corpuscular hemoglobin concentration measurement ( mass/volume) 35 g/dL 32-36 Automated erythrocyte distribution width ratio 14.2 % 10.0-14.5 Automated blood platelet count (count/volume) 160 10*3/uL 130-400 Automated blood platelet mean volume measurement 11.0 [foz_ us] 7.4-10.4 Complete urinalysis with reflex to culture - 08/03/16 10:10 Urine color determination YELLOW NRG Urine clarity determination CLEAR NRG Urine pH measurement by test strip 5 5- 9 Specific gravity of urine by test strip 1.020 1.016-1.022 Urine protein assay by test strip, semi-quantitative 1+ NEGATIVE Urine glucose detection by automated test strip NEGATIVE NEGATIVE Erythrocytes detection in urine sediment by light microscopy 2+ NEGATIVE Urine ketones detection by automated test strip NEGATIVE NEGATIVE Urine nitrite detection by test strip NEGATIVE NEGATIVE Urine total bilirubin detection by test strip NEGATIVE NEGATIVE Urine urobilinogen measurement by automated test strip (mass/volume) NORMAL NORMAL Urine leukocyte esterase detection by dipstick NEGATIVE NEGATIVE Automated urine sediment erythrocyte count by microscopy (number/high power field) NONE NRG Automated urine sediment leukocyte count by microscopy (number/high power field ) [HPF] NRG Bacteria detection in urine sediment by light microscopy NEGATIVE NRG Squamous epithelial cells detection in urine sediment by light microscopy 2-5 NRG Crystals detection in urine sediment by light microscopy NONE NRG Casts detection in urine sediment by light microscopy NONE NRG Mucus detection in urine sediment by light microscopy NEGATIVE NRG Complete urinalysis with reflex to culture NO NRG PT panel in platelet poor plasma by coagulation assay - 08/03/16 10:10 Prothrombin time (PT) in platelet poor plasma by coagulation assay 13.1 s 12.2-14.7 INR in platelet poor plasma or blood by coagulation assay 1.0 0.8-1.4 Activated partial thromboplastin time (aPTT) in platelet poor plasma bycoagulation assay - 08/03/16 10:10 Activated partial thromboplastin time (aPTT) in platelet poor plasma bycoagulation assay 28 s 24-35 Comprehensive metabolic panel - 08/03/16 10:10 Serum or plasma sodium measurement (moles/volume) 140 mmol/ L 135-145 Serum or plasma potassium measurement (moles/volume) 4.2 mmol/L 3.6-5.0 Serum or plasma chloride measurement (moles/volume) 107 mmol /L 98-107 Carbon dioxide 20 mmol/L 21-32 Serum or plasma anion gap determination (moles/volume) 13 mmol/L 5-14 Serum or plasma urea nitrogen measurement (mass/volume) 14 mg/dL 7-18 Serum or plasma creatinine measurement (mass/volume) 0.93 mg /dL 0.60-1.30 Serum or plasma urea nitrogen/creatinine mass ratio 15 NRG Serum or plasma creatinine measurement with calculation of estimated glomerular filtration rate > NRG Serum or plasma glucose measurement (mass/volume) 144 mg/dL 70-105 Serum or plasma calcium measurement (mass/volume) 9.6 mg/dL 8.5-10.1 Serum or plasma total bilirubin measurement (mass/volume) 0.7 mg/dL 0.1-1.0 Serum or plasma alkaline phosphatase measurement (enzymatic activity/volume) 79 U/L 40-136 Serum or plasma aspartate aminotransferase measurement (enzymatic activity/ volume) 19 U/L 5-34 Serum or plasma alanine aminotransferase measurement (enzymatic activity/volume ) 20 U/L 0-55 Serum or plasma protein measurement (mass/volume) 7.9 g/dL 6.4-8.2 Serum or plasma albumin measurement (mass/volume) 4.2 g/dL 3.2-4.5 Lipid 1996 panel - 08/03/16 10:10 Serum or plasma triglyceride measurement (mass/volume) 665 mg/dL <150 Serum or plasma cholesterol measurement (mass/volume) 232 mg /dL < 200 Serum or plasma cholesterol in HDL measurement (mass/volume) 37 mg/dL 40-60 Cholesterol in LDL [mass/volume] in serum or plasma by direct assay 58 mg/dL 1-129 Serum or plasma cholesterol in VLDL measurement (mass/volume) 133 mg/dL 5-40 Methicillin resistant Staphylococcus aureus (MRSA) screening culture - 10:10 Methicillin resistant Staphylococcus aureus (MRSA) screening culture NEG NRG Encounters ACCT No. Visit Date/Time Discharge Status Pt. Type Provider Facility Loc./Unit Complaint [id number] 08/03/2016 09:42:00 2016 17:50:00 DIS Outpatient ELISEO VALENTINO MD [facility] CATH ABNORMAL STRESS, [id number] 07/07/2015 08:25:00 2015 11:03:00 DIS Outpatient MALA MONTOYA APRN [facility] WOUND RIGHT LOWER EXTREMITY [id number] 06/20/2015 11:00:00 2015 12:00:00 DIS Outpatient NICCI YING MD [facility] WOUNDCARE [id number] 06/06/2015 10:53:00 2015 00:01:00 DIS Outpatient NICCI YING MD [facility] WOUNDCARE [id number] 06/03/2015 08:30:00 2015 00:01:00 DIS Outpatient RAJENDRA HUTCHINSON MD [facility] RIGHT LEG ABCESS, CELLULITIS [id number] 05/25/2015 09:25:00 2015 09:45:00 DIS Outpatient GUILLAUME BALDWIN MD [facility] PREOP CELLULITIS RIGHT LOWER EXTREMITY [id number] 03/18/2015 11:07:00 2015 17:40:00 DIS Inpatient MATIAS ACEVEDO DO [facility] 4TH RIGHT LEG ABCESS, CELLULITIS [id number] 03/09/2015 16:01:00 2015 13:52:00 DIS Inpatient JOVAN BURTON DO [facility] 4TH SEVERE CELLULITIS OF RT ANKLE [id number] 09/15/2014 09:07:00 2014 14:44:00 DIS Emergency LAURA PANTOJA, AYSHA Villar [facility] ER SOA [id number] 08/12/2013 10:34:00 2013 23:59:59 CLS Outpatient JOVAN BURTON DO [facility] RAD THYROMEGLIA [id number] 06/25/2013 10:46:00 2013 23:59:59 CLS Outpatient LENORA BURTON [facility] RAD THYROMEGLIA [id number] 08/03/2016 06:58:00 ACT Outpatient JOVAN BURTON DO [facility] CARD R07.9 [id number] 06/17/2015 00:08:00 PEN Preadmit JASPER PANTOJA, RAJENDRA Sage [facility] RIGHT LEG ABCESS, CELLULITIS [id number] 05/26/2015 09:00:00 PEN Outpatient GUILLAUME BALDWIN MD [facility] CELLULITIS RIGHT LOWER EXTREMITY [id number] 12/25/2011 09:05:00 Document Registration [id number] 11/27/2011 14:38:00 Document Registration [id number] 10/04/2011 05:41:00 Document Registration [id number] 09/28/2011 07:37:00 Document Registration [id number] 09/17/2011 07:59:00 Document Registration [id number] 05/17/2011 05:41:00 Document Registration [id number] 05/11/2011 11:35:00 Document Registration [id number] 05/04/2011 08:14:00 Document Registration [id number] 04/30/2011 09:18:00 Document Registration [id number] 04/13/2010 07:47:00 Document Registration [id number] 04/12/2010 11:41:00 Document Registration [id number] 04/07/2010 11:07:00 Document Registration
== END 2016-08-03 17:50 | disposition short-term general hospital (02) ==
LOC: CATH 09:42 → ICU 14:20 → CATH 17:50
PROVIDERS: ATTEND Internal Medicine Cardiovascular Disease
DX: R07.89 Other chest pain (principal); I25.10 Atherosclerotic heart disease of native coronary artery without angina pectoris; I10 Essential (primary) hypertension; E11.9 Type 2 diabetes mellitus without complications; Z79.01 Long term (current) use of anticoagulants; E78.5 Hyperlipidemia, unspecified; E66.9 Obesity, unspecified; Z79.899 Other long term (current) drug therapy; Z86.711 Personal history of pulmonary embolism; Z86.718 Personal history of other venous thrombosis and embolism; Z68.33 Body mass index [BMI] 33.0-33.9, adult
CPT/HCPCS: 36221; 36415; 71010; 80053; 80061; 81000; 85027; 85610; 85730; 87081; 93458

== ENCOUNTER → 2016-08-03 | Outpatient (CLI) | payer MEDICARE, OTHER ==
[~2016-08-03] VITALS: Ht 177.8 cm; Wt 106.6 kg
[~2016-08-03] MED LIST: APPLE CIDER VINEGAR PO; ASP81CT PO; ASPI-983 PO; CALC-196 PO; CALC-250 PO; CATHETER FLUSH 10 ML SYR IV PRN; CEFT1PIG IV; CINNAMON/CHROMIUM PO; CIPR-225 PO; CIPR500T4 PO; DIPH28CR5 TOP; ERGO50006 PO; ESCI10TA PO; ESCI20TA PO; FLOMAX PO; FURO20TA4 PO; GINK60CA13 PO; GLUC-113 PO; HYDR-3730 PO; HYDR-3816 PO; KCL10CCR PO; LEVO50TA6 PO; LISI-552 PO; LSNP20T PO; MULT-1029 PO; MULT-301 PO; OMEG-12 PO; OMEG1CAP51 PO; OMG1KC PO; OXYC-281 PO; POMEGRANATE PO; REGADENOSON 0.4 MG/5 ML SYR (LEXISCAN) IV ONE; RIVA20TA PO; SIMV40TA4 PO; WRF5T PO; [UNRECOGNIZED DRUG - OTHER] PO
[2016-08-03 07:57] VITALS: BP 158/84
[2016-08-03 08:14] VITALS: BP 147/92
[2016-08-03 10:19] VITALS: BP 151/64
--- NOTE | 2016-08-03 23:24 | STRESS TEST ---
DATE OF SERVICE: 08/03/2016 NUCLEAR MYOVIEW REPORT: REFERRING PHYSICIAN: Dr. Freed. In summary, the patient was injected with 10.84 mCi of technetium-99 Myoview and the resting images were obtained with peak stress level. He was injected with 32.2 mCi of technetium-99 Myoview and stress images were obtained. The resting and stress images were reviewed and compared in the short axis, horizontal long axis, and vertical long axis views. Review of the images showed reversible ischemia involving the mid to apical anterior wall, anterolateral wall, anterior septum, mid to apical inferior wall. SSS is 26. SDS 12. TID value 1.04. On the gated images, the left ventricle appeared to be dilated with end diastolic volume 153 mL, end systolic volume 94 mL. Diffuse left ventricular hypokinesia, more pronounced at the apex. Calculated ejection fraction 39%. CONCLUSION: 1. Reversible ischemia involving the mid to apical anterior wall, anterolateral wall, anterior septum, mid to apical inferior wall. 2. Dilated left ventricle with diffuse left ventricular hypokinesia, more pronounced at the anterior apical segment and through apex with ejection fraction 39%. Job ID: [id number] DocumentID: [id number] Dictated Date: 08/03/2016 15:31:01 High Density Talc Coater Operator Date: 08/03/2016 19:40:35 Dictated By: ELISEO VALENTINO MD
== END ==
LOC: CARD 06:58
PROVIDERS: ATTEND Internal Medicine
DX: R07.9 Chest pain, unspecified (principal)
CPT/HCPCS: 78452; 93017

== ENCOUNTER 2016-11-09 17:17 | Outpatient (RCR) | payer MEDICARE, OTHER | END 2016-11-12 14:19 | disposition home or self-care (01) | LOC: CR 17:17 | PROVIDERS: ATTEND Internal Medicine | DX: Z48.812 Encounter for surgical aftercare following surgery on the circulatory system (principal); Z95.1 Presence of aortocoronary bypass graft | CPT/HCPCS: 93798 ==

== ENCOUNTER → 2017-02-15 | Outpatient (CLI) | payer MEDICARE, OTHER | LOC: CARD 10:03 | PROVIDERS: ATTEND Physician Assistant | DX: I25.10 Atherosclerotic heart disease of native coronary artery without angina pectoris (principal); I10 Essential (primary) hypertension; E78.2 Mixed hyperlipidemia; I26.99 Other pulmonary embolism without acute cor pulmonale | CPT/HCPCS: 93306 ==

== ENCOUNTER → 2017-08-14 | Outpatient (CLI) | payer MEDICARE, OTHER ==
[~2017-08-14] VITALS: Ht 180.3 cm; Wt 109.8 kg
[~2017-08-14] MED LIST changes: +CATHETER FLUSH 10 ML SYR IV PRN; +HYDR-34 PO; -HYDR-3816 PO; +REGADENOSON 0.4 MG/5 ML SYR (LEXISCAN) IV ONE
[2017-08-14 09:28] VITALS: BP 124/67
--- NOTE | 2017-08-15 00:08 | STRESS TEST ---
DATE OF SERVICE: 08/14/2017 LEXISCAN MYOVIEW STRESS TEST REPORT REFERRING PHYSICIAN: Dr. Freed. Baseline heart rate is 59, baseline blood pressure 114/64. Baseline EKG is sinus rhythm with occasional atrial premature contractions. In summary, the patient was injected with 10.71 mCi of technetium-99 Myoview and the resting images were obtained. Then, the patient received 0.4 mg of Lexiscan followed by 30.1 mCi of technetium-99 Myoview. Throughout the test, there were no EKG changes. The resting and stress images were reviewed and compared in the short axis, horizontal long axis, and vertical long axis views. Review of the images showed diaphragmatic attenuation with decreased uptake at the anteroapical segment, anterolateral and inferolateral segment with mild reversibility. SSS is 8, SDS 8, TID value 1.1. On the gated images, the left ventricle appeared to be in normal size with normal contractility. Calculated ejection fraction 56%. CONCLUSION: 1. The patient tolerated Lexiscan well. 2. Diaphragmatic attenuation with decreased uptake at the anteroapical segment, anterolateral and inferolateral segment of the left ventricle. 3. Normal left ventricular size with normal contractility. Calculated ejection fraction 56%. Job ID: [id number] DocumentID: [id number] Dictated Date: 08/14/2017 17:41:19 Steel Erector Apprentice Date: 08/15/2017 00:08:00 Dictated By: ELISEO VALENTINO MD
== END ==
LOC: CARD 07:53
PROVIDERS: ATTEND Internal Medicine Cardiovascular Disease
DX: I25.10 Atherosclerotic heart disease of native coronary artery without angina pectoris (principal); R07.89 Other chest pain; I10 Essential (primary) hypertension; E78.2 Mixed hyperlipidemia; E11.9 Type 2 diabetes mellitus without complications
CPT/HCPCS: 78452; 93017

== ENCOUNTER 2017-08-26 06:34 | Day surgery (SDC) | payer MEDICARE, OTHER ==
[2017-08-26] VITALS (12 sets, daily range): BP systolic 107–142; BP diastolic 65–83
[~2017-08-26] VITALS: Ht 180.3 cm; Wt 109.8 kg
[~2017-08-26 06:34] MED LIST changes: -CATHETER FLUSH 10 ML SYR IV PRN; -REGADENOSON 0.4 MG/5 ML SYR (LEXISCAN) IV ONE
[2017-08-26] MEDS ORDERED: HEParin (CATH LAB) 2,000 ML IV ONE (06:59)
[2017-08-26] MEDS ORDERED: NS IV 1000 ML 1,000 ML ONE (06:59)
[2017-08-26] MEDS ORDERED: LIDOCAINE 1% INJ 20 ML 20 ML VIAL ONE (06:59)
[2017-08-26] MEDS ORDERED: NS IV 1000 ML 1,000 ML IV SCH ×3 (07:06→08:59)
[2017-08-26 07:27] LABS: BILIRUBIN,URINE NEGATIVE (NEGATIVE); CLARITY,URINE CLEAR; COLOR,URINE YELLOW; GLUCOSE, URINE (UA) NEGATIVE (NEGATIVE); KETONES,URINE NEGATIVE (NEGATIVE); LEUKOCYTE ESTERASE ,URINE 1+ (NEGATIVE); NITRITE,URINE NEGATIVE (NEGATIVE); PH,URINE 5 (5-9); PROTEIN,URINE NEGATIVE (NEGATIVE); UROBILINOGEN,URINE NORMAL (NORMAL)
[2017-08-26 07:30] LABS: HEMOGLOBIN 13.9 G/DL (13.3-17.7); MEAN PLATELET VOLUME 10.4 FL (7.4-10.4); RED BLOOD COUNT 4.51 10^6/uL (4.35-5.85); RED CELL DISTRIBUTION WIDTH 14.3 % (10.0-14.5); WHITE BLOOD COUNT 7.3 10^3/uL (4.3-11.0)
[2017-08-26 07:39] LABS: BACTERIA,URINE NEGATIVE /HPF; RBC,URINE RARE /HPF; SQUAMOUS EPITHELIAL CELL,UR RARE /HPF
[2017-08-26 07:43] LABS: PROTHROMBIN TIME PATIENT 13.6 SEC (12.2-14.7)
[2017-08-26] MEDS ORDERED: CHRM1TAB PO (07:45)
[2017-08-26] MEDS ORDERED: ATOR40TA70 PO (07:45)
[2017-08-26] MEDS ORDERED: METO-333 PO (07:45)
[2017-08-26] MEDS ORDERED: POTA20PA34 PO (07:45)
[2017-08-26] MEDS ORDERED: INSU100V5 SQ (07:45)
[2017-08-26] MEDS ORDERED: MELA5CAP PO (07:45)
[2017-08-26] MEDS ORDERED: FURO40TA4 PO (07:45)
--- NOTE | 2017-08-26 07:50 | Diagnostic Imaging Report ---
INDICATION: Pre-heart catheterization evaluation. EXAMINATION: Chest 08/26/2017 COMPARISON: 08/03/2016 FINDINGS: Cardiomegaly noted with postoperative changes along the midline of the chest. Lungs clear with no infiltrates or effusions. No pneumothorax. Pulmonary vasculature unremarkable. IMPRESSION: 1. Cardiomegaly. Otherwise negative chest Dictated by: Dictated on workstation # [id number]
[2017-08-26] MEDS ORDERED: fentaNYL INJECTION 100 MCG/2 ML AMP ONE (07:51)
[2017-08-26] MEDS ORDERED: MIDAZOLAM 5 MG/5 ML (VERSED) VIAL ONE (07:51)
[2017-08-26 07:52] LABS: ALANINE AMINOTRANSFERASE 23 U/L (0-55); ALBUMIN 4.7 GM/DL (3.2-4.5); ALKALINE PHOSPHATASE 84 U/L (40-136); BILIRUBIN,TOTAL 1.8 MG/DL (0.1-1.0); BUN/CREATININE RATIO 24; CALCIUM 9.9 MG/DL (8.5-10.1); CARBON DIOXIDE 24 MMOL/L (21-32); CHLORIDE 104 MMOL/L (98-107); CHOLESTEROL 146 MG/DL (< 200); CREATININE SERUM 1.11 MG/DL (0.60-1.30); GFR ESTIMATED > 60; GLUCOSE 133 MG/DL (70-105); HDL CHOLESTEROL 31 MG/DL (40-60); POTASSIUM 3.9 MMOL/L (3.6-5.0); SODIUM 140 MMOL/L (135-145); TOTAL PROTEIN 7.7 GM/DL (6.4-8.2); TRIGLYCERIDES 338 MG/DL (<150); VLDL CHOLESTEROL 68 MG/DL (5-40)
--- NOTE | 2017-08-26 08:35 | Cardiac Procedure Note-CS/ASA ---
Pre-Procedure Note Pre-Op Procedure Note H&P Reviewed The H&P was reviewed, patient examined and no changes noted. Date H&P Reviewed: Aug 26, 2017 Time H&P Reviewed: 08:35 Conscious Sedation Pre-Proced Time Reviewed: 08:35 ASA Class: 3 Airway Mallampati Classification: ([place] appropriate class) I. II. III, IV Lungs Heart ASA score ASA 1: a normal healthy patient ASA 2: a patient with a mild systemic disease (mid diabetes, controlled hypertension, obesity x ASA 3: a patient with a severe systemic disease that limits activity (angina , COPD, prior Myocardial infarction) ASA 4: a patient with an incapacitating disease that is a constant threat to life (CHF, renal failure) ASA 5: a moribund patient not expected to survive 24 hrs. (ruptured aneurysm) ASA 6: a declared brain patient whose organs are being harvested. For emergent operations, add the letter E after the classification Grade 3 Sedation Plan: Analgesia, Amnesia, Plan communicated to team members, Discussed options with patient/fam, Discussed risks with patient/fam Note The patient is an appropriate candidate to undergo the planned procedure, sedation, and anesthesia. The patient immediately re-assessed prior to indication. ELISEO VALENTINO MD Aug 26, 2017 08:35
[2017-08-26] MEDS ORDERED: PATIENT MAY USE OWN MEDS, ALL PO SCH (09:00)
--- NOTE | 2017-08-26 09:02 | Discharge Inst-Post CATH ---
Discharge Inst-CATH Post Cardiac Cath D/C Inst Follow Up/Plan Appointment with Dr Agudelo's office in 4 weeks CARDIAC CATH DISCHARGE INSTRUCTIONS *Hold Metformin for 48 hours post heart cath. ACTIVITY * Go Home directly and rest. * Limit activity of the leg (or wrist if it was used) for 7 days including aerobics, swimming, jogging, bicycling, etc. * Restrict stair-climbing for 7 days if possible, if not, climb up with your non -cath leg, then bring together on the same step. * Avoid lifting, pushing, pulling or excessive movement of the affected extremity for 7 days. * Customary sexual activity may be resumed after 2 days-use caution not to use a position that strains or causes pain to the affected extremity. * No driving for 24 hours. * NO SMOKING. * Avoid straining for bowel movements for 7 days. * Gentle walking on level ground is allowed. * Returning to work will depend on the type of procedure and the results. Your doctor will discuss this with you. CALL YOUR DOCTOR FOR ANY OF THE FOLLOWING: *If bleeding from the puncture site occurs- Apply gentle pressure to site with clean cloth and call your doctor or EMS. * If a knot or lump forms under the skin, increases in size, or causes pain. * If bruising appears to be worsening or moving further down your leg instead of disappearing. * Temperature above 101 F. CARE OF YOUR GROIN INCISION; * Bruising or purple discoloration of the skin near the puncture site is common. * You may shower only, no bathtub bathing for 5 days. Be careful to avoid slipping as your leg may feel stiff. * If a closure device was used on your femoral artery, please see the attached guide regarding care of the device and your leg. * REMOVE the dressing from your groin the next day after your procedure in the shower. CARE OF YOUR WRIST INCISION; * Bruising or purple discoloration of the skin near the puncture site is common. * You may shower. * DO NOT submerge wrist. * Remove dressing in 24 hours. ELISEO AGUDELO MD Aug 26, 2017 09:02
--- NOTE | 2017-08-26 09:06 | Cardiac Cath Report ---
Cardiac Cath Report Physician (s)/Primary School Teacher Librarian (s) Physician ELISEO VALENTINO MD Pre-Procedure Diagnosis Pre-Procedure Diagnosis: CAD Post-Procedure Note Procedure Start Date: Aug 26, 2017 Name of Procedure: Left heart catheterization, vein graft angiogram, ABKER angiogram Findings/Procedure Note PROCEDURE NOTE: After explaining the procedure to the patient, all pros and cons were explained , all questions were answered. The patient signed the consent and then he was placed on the cardiac catheterization laboratory. Groin was prepped SL fashion local anesthesia was used. Sheath placed in the right femoral artery. Darrell right and left catheter were used to access the coronary system.Vein Graft evaluated. BAKER evaluated. Pigtail was used to access the left ventricular cavity, pressure was measured no left ventriculogram was done At the end of the procedure the sheath was removed. Closure device FINDINGS: Hemodynamics LV 107/9, end-diastolic pressure of 9 Aorta 103/54 mean of 73 ANATOMY: Left Main has moderate disease Left Anterior Descending is occluded with patent BAKER to LAD Left Circumflex has mild disease nonobstructive disease Right Coronory Artery has diffuse ectasia with severe stenosis proximally, patent vein graft to the right coronary system, large dominant artery BAKER angiogram was done with nonselective angiogram due to the tortuosity of the subclavian artery, the artery is moderate in size with good flow down in the LAD system, small vessel disease distally Vein Graft evaluation done The upper vein graft is the vein graft to the diagonal artery that is patent with good flow distally The lower vein graft is the vein graft to the right coronary artery that is patent with excellent flow distally LV Gram was not done, pressure was measured CONCLUSION: 1. Severe cachil dehe coronary artery disease with total occlusion of the LAD and severe stenosis in the large dominant right coronary artery corrected by patent BAKER to LAD, vein graft to diagonal artery and vein graft to the right coronary artery was small vessel disease distally 2. Mild disease in the circumflex artery nonobstructive disease 3. Normal left ventricular end diastolic pressure DISCUSSION AND RECOMMENDATION: Medical therapy is recommended no intervention is warranted Anesthesia Type: Conscious Sedation Estimated blood loss (mL): 10 ml Contrast Amount: 85 ml Total Radiation Dose: 895 mGy Post-Procedure Diagnosis Post-operative diagnosis: Coronary artery disease Hypertension Hyperlipidemia Diabetes mellitus ELISEO VALENTINO MD Aug 26, 2017 09:06
== END 2017-08-26 13:50 | disposition home or self-care (01) ==
LOC: CATH 06:34 → SURG 09:20 → CATH 13:50
PROVIDERS: ATTEND Internal Medicine Cardiovascular Disease
DX: I25.10 Atherosclerotic heart disease of native coronary artery without angina pectoris (principal); I10 Essential (primary) hypertension; E78.2 Mixed hyperlipidemia; E11.9 Type 2 diabetes mellitus without complications; R60.9 Edema, unspecified; Z11.2 Encounter for screening for other bacterial diseases; Z86.718 Personal history of other venous thrombosis and embolism; Z86.711 Personal history of pulmonary embolism; Z87.442 Personal history of urinary calculi
CPT/HCPCS: 36415; 36430; 71045; 80053; 80061; 81000; 85027; 85610; 85730; 87081; 93459

== ENCOUNTER 2019-11-13 18:05 | Inpatient (IN) | payer MEDICARE, OTHER ==
[~2019-11-13] VITALS: Ht 177 cm; Wt 95.6 kg
[~2019-11-13 18:05] MED LIST changes: +ASPI-1238 PO; -ASPI-983 PO; +ATOR40TA70 PO; +CHRM1TAB PO; +FURO40TA4 PO; +INSU100V5 SQ; +MELA5CAP PO; +METO-333 PO; +POTA20PA34 PO; -RIVA20TA PO; +RIVA20TA2 PO
[2019-11-13] MEDS ORDERED: LACTATED RINGERS 1,000 ML IV ONE (18:30)
[2019-11-13] MEDS ORDERED: LACTATED RINGERS 1,000 ML IV STA (18:30)
--- NOTE | 2019-11-13 18:33 | ED General ---
General Stated Complaint: WEAKNESS/PASSED OUT/UNABLE TO EAT Source of Information: Patient Exam Limitations: No Limitations History of Present Illness Date Seen by Provider: Nov 13, 2019 Time Seen by Provider: 18:19 Initial Comments Here with report of weakness and passing out. States that he did fall and hit his head and face on the left side. Does have some old blood or drainage from the nose as well as old nonbleeding wound to the left lateral brow. Patient states that he lives at home alone and takes care of himself. He believes that he is dehydrated and wanted to get checked out. Denies chest pain, breathing problems, nausea, vomiting, diarrhea or dysuria. Patient is a diabetic and manages that at home. Current blood sugar 153. He denies new wounds. He is a bit confused. Friends who brought him and states that this is different for him how he was acting. Reports that he has been self isolating at home and avoiding contact with other people. Went to the store last week but otherwise is avoiding contacts to prevent COVID-19. Patient is on blood thinner. Timing/Duration: 12 Hours Severity: Moderate Modifying Factors: improves with Rest Associated Systoms: No Chest Pain; Cough (last week but better now); No Fever/Chills, No Nausea/Vomiting, No Shortness of Air; Weakness Allergies and Home Medications Allergies Coded Allergies: NKANo Known Allergies (Verified Allergy, Unknown, 05/18/05) Home Medications Aspirin 81 Mg Tablet.dr, 81 MG PO DAILY, (Reported) Atorvastatin Calcium 40 Mg Tablet, 40 MG PO DAILY, (Reported) Deep/Evgeny/ Bt-Org Peel/Gr T 1 Each Tablet, 1 EACH PO DAILY, (Reported) Ergocalciferol (Vitamin D2) 50,000 Unit Capsule, 50,000 UNIT PO Mo, (Reported) Escitalopram Oxalate 20 Mg Tablet, 20 MG PO DAILY, (Reported) Furosemide 40 Mg Tablet, 40 MG PO DAILY, (Reported) Insulin Determir 1,000 Units/10 Ml Soln, 20 UNITS SQ DAILY, (Reported) Levothyroxine Sodium 50 Mcg Tablet, 50 MCG PO DAILY, (Reported) Lisinopril 20 Mg Tablet, 40 MG PO DAILY, (Reported) TAKES 2 (20MG) TABLETS Melatonin 5 Mg Capsule, 5 MG PO DAILY, (Reported) Metoprolol Tartrate 25 Mg Tablet, 12.5 MG PO BID, (Reported) Multivitamin 1 Each Tablet, 1 TAB PO DAILY, (Reported) [place] 3 Polyunsat Fatty Acids 1,000 Mg Cap, 1,000 MG PO DAILY, (Reported) Potassium Chloride 20 Meq Packet, 20 MEQ PO DAILY, (Reported) Rivaroxaban 20 Mg Tablet, 20 MG PO DAILY, (Reported) Patient Home Medication List Home Medication List Reviewed: Yes Review of Systems Review of Systems Constitutional: see HPI; No chills, No fever; weakness EENTM: epistaxis, nose congestion; No throat pain Respiratory: No cough, No short of breath Cardiovascular: No chest pain, No edema Gastrointestinal: No abdominal pain, No diarrhea, No nausea, No vomiting Genitourinary: No dysuria, No pain Musculoskeletal: muscle weakness; No neck pain Skin: change in color, lesions Psychiatric/Neurological: Denies Headache; Weakness All Other Systems Reviewed Negative Unless Noted: Yes Past Ajmopwk-Jarbtr-Qejjmm Hx Past Med/Social Hx: Reviewed Nursing Past Med/Soc Hx Patient Social History Alcohol Use: Denies Use Recreational Drug Use: No Smoking Status: Never a Smoker Recent Foreign Travel: No Contact w/Someone Who Travel: No Immunizations Up To Date Tetanus Booster (TDap): More than 5yrs Date of Pneumonia Vaccine: Nov 25, 2012 Date of Influenza Vaccine: Nov 25, 2014 Seasonal Allergies Seasonal Allergies: No Past Medical History Surgeries: Yes Abdominal, Renal, Vasectomy Respiratory: No Cardiac: Yes Chronic Edema/Swelling, Deep Vein Thrombosis, High Cholesterol, Hypertension Neurological: No Reproductive Disorders: No Genitourinary: Yes Kidney Stones Gastrointestinal: No Musculoskeletal: Yes Arthritis Endocrine: Yes Hypothyroidsim, Diabetes, Non-Insulin dep Hearing Impairment: Hard of Hearing Cancer: Yes Bladder Depression Recent Skin Changes Adverse Reaction/Blood Tranf: No Family Medical History Reviewed Nursing Family Hx Cancer Physical Exam-Suspected Sepsis Physical Exam Vital Signs Vital Signs - First Documented 11/13/19 18:15 Temp 36.1 Pulse 70 Resp 18 B/P (MAP) 89/75 (80) Pulse Ox 99 O2 Delivery Room Air Capillary Refill : Height, Weight, BMI Height: 5'11.00" Weight: 242lbs. 0.0oz. 109.643131ev; 33.8 BMI Method: General Appearance: No Apparent Distress, Other (ill appearing) HEENT: PERRL/EOMI, TMs Normal, Pharynx Normal, Other (clear fluid drainage from the nose bilateral nares. Small abrasion to the nose from tip to bridge. Small abrasion to the left lateral brow. Bleeding controlled.) Neck: Full Range of Motion, Normal Inspection, Non Tender, Supple Respiratory: Lungs Clear, Normal Breath Sounds Cardiovascular: Regular Rate, Rhythm, No Murmur Gastrointestinal: Non Tender, Soft Back: Normal Inspection, No CVA Tenderness, No Vertebral Tenderness Extremity: Normal Range of Motion, Non Tender Neurologic/Psychiatric: Alert, Oriented x3 Skin: cool, pallor; No ulcerations; other (abrasions as above) Focused Exam Lactate Level 11/13/19 18:25: Lactic Acid Level 1.07 Lactic Acid Level Progress/Results/Core Measures Suspected Sepsis SIRS Temperature: Pulse: Respiratory Rate: Laboratory Tests 11/13/19 18:25: White Blood Count 10.9 11/14/19 03:50: White Blood Count 7.5 11/15/19 02:52: White Blood Count 5.7 Blood Pressure / Mean: 11/13/19 18:25: Lactic Acid Level 1.07 Laboratory Tests 11/13/19 18:25: INR Comment 2.1H, Platelet Count 168, Total Bilirubin 0.5 11/13/19 20:48: Creatinine 2.83#H 11/14/19 03:50: Platelet Count 121L, Total Bilirubin 0.5, Creatinine 2.34H 11/15/19 02:52: INR Comment 1.2, Platelet Count 96L, Total Bilirubin 0.6, Creatinine 1.51H Results/Orders Lab Results Laboratory Tests Test 11/14/19 03:50 11/14/19 12:23 11/15/19 02:52 11/15/19 15:54 Range/Units White Blood Count 7.5 5.7 4.3-11.0 10^3/uL Red Blood Count 3.88 L 3.54 L 4.35-5.85 10^6/uL Hemoglobin 11.6 L 10.7 L 13.3-17.7 G/DL Hematocrit 33 L 30 L 40-54 % Mean Corpuscular Volume 85 85 80-99 FL Mean Corpuscular Hemoglobin 30 30 25-34 PG Mean Corpuscular Hemoglobin Concent 35 35 32-36 G/DL Red Cell Distribution Width 14.3 14.1 10.0-14.5 % Platelet Count 121 L 96 L 130-400 10^3/uL Mean Platelet Volume 10.7 H 11.0 H 7.4-10.4 FL Neutrophils (%) (Auto) 82 H 72 42-75 % Lymphocytes (%) (Auto) 12 23 12-44 % Monocytes (%) (Auto) 5 5 0-12 % Eosinophils (%) (Auto) 1 1 0-10 % Basophils (%) (Auto) 0 0 0-10 % Neutrophils # (Auto) 6.1 4.1 1.8-7.8 X 10^3 Lymphocytes # (Auto) 0.9 L 1.3 1.0-4.0 X 10^3 Monocytes # (Auto) 0.4 0.3 0.0-1.0 X 10^3 Eosinophils # (Auto) 0.1 0.1 0.0-0.3 10^3/uL Basophils # (Auto) 0.0 0.0 0.0-0.1 10^3/uL Sodium Level 133 L 136 135-145 MMOL/L Potassium Level 5.0 4.6 3.6-5.0 MMOL/L Chloride Level 110 H 113 H 98-107 MMOL/L Carbon Dioxide Level 14 L 16 L 21-32 MMOL/L Anion Gap 9 7 5-14 MMOL/L Blood Urea Nitrogen 84 H 47 H 7-18 MG/DL Creatinine 2.34 H 1.51 H 0.60-1.30 MG/DL Estimat Glomerular Filtration Rate 28 46 BUN/Creatinine Ratio 36 31 Glucose Level 88 92 70-105 MG/DL Calcium Level 8.3 L 7.9 L 8.5-10.1 MG/DL Corrected Calcium 8.4 L 8.3 L 8.5-10.1 MG/DL Phosphorus Level 4.1 2.1 L 2.3-4.7 MG/DL Magnesium Level 2.3 2.1 1.6-2.4 MG/DL Total Bilirubin 0.5 0.6 0.1-1.0 MG/DL Aspartate Amino Transf (AST/SGOT) 17 135 H 5-34 U/L Alanine Aminotransferase (ALT/SGPT) 13 47 0-55 U/L Alkaline Phosphatase 32 L 55 40-136 U/L Troponin I 0.202 H <0.028 NG/ML Total Protein 6.6 5.9 L 6.4-8.2 GM/DL Albumin 3.9 3.5 3.2-4.5 GM/DL Urine Random Sodium 57 mmol/L Urine Random Potassium 18 mmol/L Urine Random Chloride 72 mmol/L Prothrombin Time 15.7 H 12.2-14.7 SEC INR Comment 1.2 0.8-1.4 Stool Occult Blood Immunoassay POSITIVE H NEGATIVE Micro Results Microbiology 11/13/19 MRSA Screen - Final, Complete MRSA not isolated My Orders Medications Given in ED Vital Signs/I&O 11/15/19 11/15/19 11/15/19 11/15/19 10:00 12:00 12:35 12:40 Temp 36.8 Pulse 81 60 59 67 Resp 23 26 18 B/P (MAP) 121/63 (82) 102/54 (70) 125/60 (81) Pulse Ox 100 98 100 O2 Delivery Room Air Room Air Room Air 11/15/19 11/15/19 11/15/19 11/15/19 12:46 13:13 16:00 17:35 Temp 36.4 Pulse 59 62 Resp 18 B/P (MAP) 99/57 (71) 104/62 (76) Pulse Ox 100 100 O2 Delivery Room Air Room Air Capillary Refill : Progress Note : Progress Note Seen and evaluated. IV, labs, UA, chest x-ray, EKG, LR 1 L bolus. Second IV established and repeat LR 1 L bolus ordered due to hypotension noted on arrival with systolic blood pressure 89. Blood sugar 153. Monitor patient. 2036: I did discuss the case with Dr. Bobby. Patient does have elevated creatinine and I do believe this is related to dehydration. Blood pressure has improved with fluid b oluses. We will recheck his potassium as it was high earlier. He accepts patient for admission, inpatient status to the ICU with Dr. Agudelo on consult. I did discuss the case with Dr. Agudelo at 2047. He accepts patient for consult. Patient does have elevated troponin. I believe this is related to demand ischemia from the hypotension. He is currently on Xarelto. We will initiate Lovenox treatment in the morning. This will be pharmacy adjusted dosing. No findings of sepsis as there is no findings of infection. This seems to be related to dehydration currently. White count lactic acid normal. Patient does have urine output and is doing better. 2124: I have updated the family on concerns. Repeat BMP shows improve creatinine and potassium. Patient is without chest pain and has been throughout the whole visit. Admit, inpatient status. Patient agrees with plan. ECG Initial ECG Impression Date: Nov 13, 2019 Initial ECG Impression Time: 18:39 Initial ECG Rate: 63 Initial ECG Rhythm: Normal Sinus Comment Sinus rhythm with normal axis. No evidence of ST elevation AK. Questionable ST elevation in the lateral leads. Similar morphology to 09/15/14. Interpreted by me. Diagnostic Imaging Diagonstic Imaging: Xray Plain Films/CT/US/NM/MRI: chest Comments [facility] [place] NAME: JACQUELINE ELISE [facility] REC#: [id number] PT STATUS: REG ER : 1945 PHYSICIAN: ISABELA ISLAS MD ADMIT DATE: 11/13/19/ER Draft Date of Exam:11/13/19 CHEST 1 VIEW, AP/PA ONLY EXAMINATION: Chest radiograph, portable AP view. DATE: 11/13/2019 7:18 PM hours. INDICATION: 73-year-old male, sepsis. COMPARISON: August 26, 2017. FINDINGS: There are median sternotomy wires. Stable overall appearance of the cardiomediastinal silhouette. There is no identified pneumothorax. There is no large pleural effusion. There is no identified focal airspace consolidation. IMPRESSION: No identified acute cardiopulmonary abnormality. Dictated on workstation # [id number] Dict: 11/13/191919 Trans: 11/13/191922 [facility] [id number] Interpreted by: HENRIK RHODES MD Electronically signed by: Diagonstic Imaging: CT Plain Films/CT/US/NM/MRI: facial bones, c-spine, head Comments PT STATUS: REG ER : 1945 PHYSICIAN: ISABELA ISLAS MD ADMIT DATE: 11/13/19/ER Draft Date of Exam:11/13/19 CT HEAD/FACE/CERVICAL WO PROCEDURE: CT head, face, and cervical spine without contrast. TECHNIQUE: Multiple contiguous axial images were obtained through the head, neck, and facial bones without the use of intravenous contrast. Sagittal and coronal reformations through the cervical spine and facial bones were also performed. Auto Exposure Controls were utilized during the CT exam to meet ALARA standards for radiation dose reduction. DATE: November 13, 2019. COMPARISON: None. INDICATION: 73-year-old male, trauma. Head, neck and facial pain. FINDINGS: There is no identified skull fracture. The right frontal sinus is hypoplastic. The paranasal sinuses, mastoid air cells and middle ears are well aerated. The temporomandibular joints are normally aligned, bilaterally. The mandible is intact. There is no identified nasal bone fracture. There is no otherwise identified acute maxillofacial bone fracture. The orbits are unremarkable in appearance. There is soft tissue swelling at the level of the nose. The ventricles and CSF spaces are normal in size and configuration for patient age. There is no identified abnormal extra-axial fluid collection. There is no evidence of acute intracranial hemorrhage. There is no mass effect or midline shift. There is a very small CSF attenuation focus in the right block radiata most likely relating to a remote prior lacunar infarct. There is no identified facet joint subluxation or dislocation. There is no asymmetric widening of the cervical disc spaces. There is no prominent prevertebral soft tissue swelling. There is no identified acute fracture of the cervical spine. There is moderate to severe disc height loss at C6-C7 with small posterior disc osteophyte complex. CT is limited for assessment of disc pathology as well as additional nonbloody causes of pathology in the spinal canal. The visualized portions of the paranasal sinuses are well aerated. There is a 4 mm low-attenuation left thyroid nodule. There are bilateral carotid vascular calcifications. IMPRESSION: 1. No identified acute intracranial abnormality. 2. No identified acute maxillofacial bone fracture. 3. No identified acute post traumatic abnormality of the cervical spine. Dictated on workstation # [id number] Dict: 11/13/191926 Trans: 11/13/191934 [facility] [id number] Interpreted by: HENRIK RHODES MD Electronically signed by: Departure Communication (Admissions) Time/Spoke to Admitting Phy: 20:37 Time/Spoke to Consulting Phy: 20:48 Impression Primary Impression: Acute renal failure Qualified Codes: N17.9 - Acute kidney failure, unspecified Additional Impressions: Elevated troponin Hypotension Qualified Codes: I95.9 - Hypotension, unspecified Disposition: ADMITTED INPATIENT Condition: Stable Admissions Decision to Admit Reason: Admit from ER (General) Decision to Admit/Date: Nov 13, 2019 Time/Decision to Admit Time: 20:37 Departure-Patient Inst. Referrals: JOVAN BURTON DO (PCP/Family) Primary Care Physician ISABELA ISLAS MD Nov 13, 2019 18:33
[2019-11-13 18:38] LABS: BASOPHILS % (AUTO) 0 % (0-10); EOSINOPHILS # (AUTO) 0.1 10^3/uL (0.0-0.3); EOSINOPHILS % (AUTO) 1 % (0-10); HEMATOCRIT 38 % (40-54); HEMOGLOBIN 13.3 G/DL (13.3-17.7); LYMPHOCYTES # (AUTO) 1.2 X 10^3 (1.0-4.0); LYMPHOCYTES % (AUTO) 11 % (12-44); MEAN CORPUSCULAR HEMOGLOBIN 30 PG (25-34); MEAN CORPUSCULAR HGB CONC 36 G/DL (32-36); MEAN CORPUSCULAR VOLUME 85 FL (80-99); MEAN PLATELET VOLUME 10.2 FL (7.4-10.4); MONOCYTES # (AUTO) 0.4 X 10^3 (0.0-1.0); MONOCYTES % (AUTO) 3 % (0-12); NEUTROPHILS # (AUTO) 9.3 X 10^3 (1.8-7.8); NEUTROPHILS % (AUTO) 85 % (42-75); PLATELET COUNT 168 10^3/uL (130-400); WHITE BLOOD COUNT 10.9 10^3/uL (4.3-11.0)
[2019-11-13 19:03] LABS: BILIRUBIN,URINE NEGATIVE (NEGATIVE); CLARITY,URINE CLEAR; COLOR,URINE YELLOW; GLUCOSE, URINE (UA) TRACE (NEGATIVE); KETONES,URINE NEGATIVE (NEGATIVE); LEUKOCYTE ESTERASE ,URINE NEGATIVE (NEGATIVE); NITRITE,URINE NEGATIVE (NEGATIVE); PROTEIN,URINE NEGATIVE (NEGATIVE)
[2019-11-13 19:05] LABS: INR 2.1 (0.8-1.4); PROTHROMBIN TIME PATIENT 23.6 SEC (12.2-14.7)
[2019-11-13 19:08] LABS: ALBUMIN 4.5 GM/DL (3.2-4.5)
[2019-11-13 19:09] LABS: RBC,URINE RARE /HPF; WBC,URINE RARE /HPF
[2019-11-13 19:09] LABS: POTASSIUM 6.4 MMOL/L (3.6-5.0)
[2019-11-13 19:10] LABS: CALCIUM 9.1 MG/DL (8.5-10.1)
[2019-11-13 19:10] LABS: BACTERIA,URINE TRACE /HPF
[2019-11-13 19:11] LABS: TOTAL PROTEIN 7.9 GM/DL (6.4-8.2)
[2019-11-13 19:13] LABS: BILIRUBIN,TOTAL 0.5 MG/DL (0.1-1.0)
[2019-11-13 19:15] LABS: CREATININE SERUM 3.37 MG/DL (0.60-1.30)
--- NOTE | 2019-11-13 19:23 | Diagnostic Imaging Report ---
EXAMINATION: Chest radiograph, portable AP view. DATE: 11/13/2019 7:18 PM. INDICATION: 73-year-old male, sepsis. COMPARISON: August 26, 2017. FINDINGS: There are median sternotomy wires. Stable overall appearance of the cardiomediastinal silhouette. There is no identified pneumothorax. There is no large pleural effusion. There is no identified focal airspace consolidation. IMPRESSION: No identified acute cardiopulmonary abnormality. Dictated by: Dictated on workstation # [id number]
--- NOTE | 2019-11-13 19:36 | Diagnostic Imaging Report ---
PROCEDURE: CT head, face, and cervical spine without contrast. TECHNIQUE: Multiple contiguous axial images were obtained through the head, neck, and facial bones without the use of intravenous contrast. Sagittal and coronal reformations through the cervical spine and facial bones were also performed. Auto Exposure Controls were utilized during the CT exam to meet ALARA standards for radiation dose reduction. DATE: November 13, 2019. COMPARISON: None. INDICATION: 73-year-old male, trauma. Head, neck and facial pain. FINDINGS: There is no identified skull fracture. The right frontal sinus is hypoplastic. The paranasal sinuses, mastoid air cells and middle ears are well aerated. The temporomandibular joints are normally aligned, bilaterally. The mandible is intact. There is no identified nasal bone fracture. There is no otherwise identified acute maxillofacial bone fracture. The orbits are unremarkable in appearance. There is soft tissue swelling at the level of the nose. The ventricles and CSF spaces are normal in size and configuration for patient age. There is no identified abnormal extra-axial fluid collection. There is no evidence of acute intracranial hemorrhage. There is no mass effect or midline shift. There is a very small CSF attenuation focus in the right block radiata most likely relating to a remote prior lacunar infarct. There is no identified facet joint subluxation or dislocation. There is no asymmetric widening of the cervical disc spaces. There is no prominent prevertebral soft tissue swelling. There is no identified acute fracture of the cervical spine. There is moderate to severe disc height loss at C6-C7 with small posterior disc osteophyte complex. CT is limited for assessment of disc pathology as well as additional nonbloody causes of pathology in the spinal canal. The visualized portions of the paranasal sinuses are well aerated. There is a 4 mm low-attenuation left thyroid nodule. There are bilateral carotid vascular calcifications. IMPRESSION: 1. No identified acute intracranial abnormality. 2. No identified acute maxillofacial bone fracture. 3. No identified acute post traumatic abnormality of the cervical spine. Dictated by: Dictated on workstation # [id number]
--- NOTE | 2019-11-13 21:00 | NUR ---
Contacted daughter, Netta, regarding pt update, findings, et admission. Netta voices no further questions or concerns at this time. [phone]
[2019-11-13 21:09] LABS: POTASSIUM 5.8 MMOL/L (3.6-5.0)
[2019-11-13 21:10] LABS: CALCIUM 8.6 MG/DL (8.5-10.1)
[2019-11-13] MEDS ORDERED: NS IV 1000 ML 1,000 ML ONE (21:13)
[2019-11-13 21:14] LABS: CREATININE SERUM 2.83 MG/DL (0.60-1.30)
[2019-11-13] MEDS ORDERED: NS IV 1000 ML 1,000 ML IV STA (21:17)
[2019-11-13 22:45] VITALS: BP 104/67
[2019-11-13 23:00] VITALS: BP 109/59
[2019-11-13] MEDS: NS IV 1000 ML 1,000 ML IV SCH (23:00)
[2019-11-13 23:15] VITALS: BP 107/55
[2019-11-13 23:30] VITALS: BP 116/70
[2019-11-13 23:45] VITALS: BP 112/55
[2019-11-14] VITALS (22 sets, daily range): BP systolic 85–139; BP diastolic 43–95
[2019-11-14 04:34] LABS: BASOPHILS % (AUTO) 0 % (0-10); EOSINOPHILS # (AUTO) 0.1 10^3/uL (0.0-0.3); EOSINOPHILS % (AUTO) 1 % (0-10); HEMATOCRIT 33 % (40-54); HEMOGLOBIN 11.6 G/DL (13.3-17.7); LYMPHOCYTES # (AUTO) 0.9 X 10^3 (1.0-4.0); LYMPHOCYTES % (AUTO) 12 % (12-44); MEAN CORPUSCULAR HEMOGLOBIN 30 PG (25-34); MEAN CORPUSCULAR HGB CONC 35 G/DL (32-36); MEAN CORPUSCULAR VOLUME 85 FL (80-99); MEAN PLATELET VOLUME 10.7 FL (7.4-10.4); MONOCYTES # (AUTO) 0.4 X 10^3 (0.0-1.0); MONOCYTES % (AUTO) 5 % (0-12); NEUTROPHILS # (AUTO) 6.1 X 10^3 (1.8-7.8); NEUTROPHILS % (AUTO) 82 % (42-75); PLATELET COUNT 121 10^3/uL (130-400); WHITE BLOOD COUNT 7.5 10^3/uL (4.3-11.0)
[2019-11-14 04:35] LABS: ALBUMIN 3.9 GM/DL (3.2-4.5)
[2019-11-14 04:37] LABS: CALCIUM 8.3 MG/DL (8.5-10.1)
[2019-11-14 04:38] LABS: TOTAL PROTEIN 6.6 GM/DL (6.4-8.2)
[2019-11-14 04:40] LABS: BILIRUBIN,TOTAL 0.5 MG/DL (0.1-1.0)
[2019-11-14 04:41] LABS: PHOSPHORUS 4.1 MG/DL (2.3-4.7)
[2019-11-14 04:42] LABS: CREATININE SERUM 2.34 MG/DL (0.60-1.30)
[2019-11-14 04:45] LABS: MAGNESIUM 2.3 MG/DL (1.6-2.4)
[2019-11-14] MEDS: MAGNESIUM 1 GM/100 ML IVPB 100 ML IV SCH (04:53)
[2019-11-14] MEDS: KCL 20 MEQ TAB (K-DUR) PO SCH (04:53)
[2019-11-14] MEDS: POTASSIUM CL 10MEQ/50ML IVPB 50 ML IV SCH (04:53)
[2019-11-14] MEDS: NS IV 1000 ML 1,000 ML IV SCH ×3 (07:00→22:50)
[2019-11-14] MEDS ORDERED: FLU QUAD HIGH DOSE 240 MCG/0.7 ML 2020-21 (FLUZONE) IM ONE (07:30)
--- NOTE | 2019-11-14 08:28 | Diagnostic Imaging Report ---
CHEST 1 VIEW, AP/PA ONLY Indication: Acute renal failure, hypotension Comparison: 11/13/2019 Findings: No focal airspace disease in the visualized lungs. Please note that the posterior lower lobes are poorly evaluated by portable radiography. No pleural effusion or pneumothorax. Stable changes of CABG. Impression: 1. No acute cardiopulmonary process by portable radiography. Dictated by: Dictated on workstation # [id number]
[2019-11-14] MEDS ORDERED: SODIUM BICARBONATE 650 MG TABLET (NON-FORMULARY) ONE (09:01)
[2019-11-14] MEDS: SODIUM BICARBONATE 650 MG TABLET (NON-FORMULARY) PO SCH ×3 (09:05→20:17)
[2019-11-14] MEDS: ENOXAPARIN 100 MG/1 ML (LOVENOX) SYR SC SCH ×2 (09:06→20:17)
--- NOTE | 2019-11-14 09:49 | Consultation-Cardiology ---
HPI-Cardiology Cardiology Consultation Date of Consultation 11/14/19 Date of Admission Time Seen by Provider: 09:44 Indication: syncope HPI 73 years old gentleman with history of coronary artery disease, hypertension or hyperlipidemia. Patient reported that he has not felt well for the past few weeks, poor oral intake in association with nausea, diarrhea. Had a syncopal episode and brought to the emergency room noted to be hypotensive and in renal failure and had mild elevation in troponin. He denied any chest pain. No palpitation. Currently feeling better and reporting some improvement with his appetite. Home Medications & Allergies Allergies: Coded Allergies: NKANo Known Allergies (Verified Allergy, Unknown, 05/18/05) Home Medication List Reviewed: Yes NOD-Oxugml-Hizuty Hx Patient Social History Employed/Student: retired Alcohol Use: Denies Use Recreational Drug Use: No Smoking Status: Never a Smoker 2nd Hand Smoke Exposure: No Recent Foreign Travel: No Recent Infectious Disease Expo: No Recent Hopitalizations: No Immunizations Up To Date Tetanus Booster (TDap): More than 5yrs Date of Pneumonia Vaccine: Nov 25, 2012 Date of Influenza Vaccine: Nov 25, 2014 Past Medical History Discussed below Family Medical History Significant Family History: Cancer Family Medical Hx Noncontributory Review of Systems-General Review of Systems Constitutional: see HPI; No chills, No fever; malaise, weakness EENTM: see HPI, no symptoms reported, epistaxis, nose congestion; No throat pain Respiratory: see HPI; No cough; dyspnea on exertion; No hemoptysis, No orthopnea, No phlegm, No short of breath, No stridor, No wheezing, No other Cardiovascular: see HPI; No chest pain, No edema; syncope Gastrointestinal: see HPI; No abdominal pain; diarrhea, nausea; No vomiting Genitourinary: no symptoms reported, see HPI; No dysuria, No pain Musculoskeletal: see HPI, muscle pain, muscle weakness; No neck pain Skin: see HPI, change in color, lesions Psychiatric/Neurological: See HPI; Denies Headache; Weakness All Other Systems Reviewed Negative Unless Noted: Yes Reviewed Test Results Reviewed Test Results Lab Laboratory Tests Test 11/13/19 18:25 11/13/19 18:44 11/13/19 20:48 11/14/19 03:50 Range/Units White Blood Count 10.9 7.5 4.3-11.0 10^3/uL Red Blood Count 4.43 3.88 L 4.35-5.85 10^6/uL Hemoglobin 13.3 11.6 L 13.3-17.7 G/DL Hematocrit 38 L 33 L 40-54 % Mean Corpuscular Volume 85 85 80-99 FL Mean Corpuscular Hemoglobin 30 30 25-34 PG Mean Corpuscular Hemoglobin Concent 36 35 32-36 G/DL Red Cell Distribution Width 14.6 H 14.3 10.0-14.5 % Platelet Count 168 121 L 130-400 10^3/uL Mean Platelet Volume 10.2 10.7 H 7.4-10.4 FL Neutrophils (%) (Auto) 85 H 82 H 42-75 % Lymphocytes (%) (Auto) 11 L 12 12-44 % Monocytes (%) (Auto) 3 5 0-12 % Eosinophils (%) (Auto) 1 1 0-10 % Basophils (%) (Auto) 0 0 0-10 % Neutrophils # (Auto) 9.3 H 6.1 1.8-7.8 X 10^3 Lymphocytes # (Auto) 1.2 0.9 L 1.0-4.0 X 10^3 Monocytes # (Auto) 0.4 0.4 0.0-1.0 X 10^3 Eosinophils # (Auto) 0.1 0.1 0.0-0.3 10^3/uL Basophils # (Auto) 0.0 0.0 0.0-0.1 10^3/uL Prothrombin Time 23.6 H 12.2-14.7 SEC INR Comment 2.1 H 0.8-1.4 Activated Partial Thromboplast Time 39 H 24-35 SEC Sodium Level 131 L 131 L 133 L 135-145 MMOL/L Potassium Level 6.4 H 5.8 H 5.0 3.6-5.0 MMOL/L Chloride Level 108 H 108 H 110 H 98-107 MMOL/L Carbon Dioxide Level 12 L 13 L 14 L 21-32 MMOL/L Anion Gap 11 10 9 5-14 MMOL/L Blood Urea Nitrogen 100 *H 95 H 84 H 7-18 MG/DL Creatinine 3.37 H 2.83 #H 2.34 H 0.60-1.30 MG/DL Estimat Glomerular Filtration Rate 18 22 28 BUN/Creatinine Ratio 30 34 36 Glucose Level 155 H 138 H 88 70-105 MG/DL Lactic Acid Level 1.07 0.50-2.00 MMOL/L Calcium Level 9.1 8.6 8.3 L 8.5-10.1 MG/DL Corrected Calcium 8.7 8.4 L 8.5-10.1 MG/DL Total Bilirubin 0.5 0.5 0.1-1.0 MG/DL Aspartate Amino Transf (AST/SGOT) 22 17 5-34 U/L Alanine Aminotransferase (ALT/SGPT) 16 13 0-55 U/L Alkaline Phosphatase 38 L 32 L 40-136 U/L Troponin I 0.410 *H 0.202 H <0.028 NG/ML Total Protein 7.9 6.6 6.4-8.2 GM/DL Albumin 4.5 3.9 3.2-4.5 GM/DL Urine Color YELLOW Urine Clarity CLEAR Urine pH 5.0 5-9 Urine Specific [place] 1.015 L 1.016-1.022 Urine Protein NEGATIVE NEGATIVE Urine Glucose (UA) TRACE H NEGATIVE Urine Ketones NEGATIVE NEGATIVE Urine Nitrite NEGATIVE NEGATIVE Urine Bilirubin NEGATIVE NEGATIVE Urine Urobilinogen 0.2 < = 1.0 MG/DL Urine Leukocyte Esterase NEGATIVE NEGATIVE Urine RBC (Auto) TRACE-I NEGATIVE Urine RBC RARE /HPF Urine WBC RARE /HPF Urine Squamous Epithelial Cells NONE /HPF Urine Crystals NONE /LPF Urine Bacteria TRACE /HPF Urine Casts NONE /LPF Urine Mucus NEGATIVE /LPF Urine Culture Indicated NO Phosphorus Level 4.1 2.3-4.7 MG/DL Magnesium Level 2.3 1.6-2.4 MG/DL Physical Exam Physical Exam Vital Signs Vital Signs - First Documented 11/13/19 18:15 Temp 36.1 Pulse 70 Resp 18 B/P (MAP) 89/75 (80) Pulse Ox 99 O2 Delivery Room Air Capillary Refill : Less Than 3 Seconds Height, Weight, BMI Height: 5'11.00" Weight: 242lbs. 0.0oz. [id number]; 29.00 BMI Method: General Appearance: No Apparent Distress, Other (ill appearing) HEENT: PERRL/EOMI, TMs Normal, Pharynx Normal, Other (clear fluid drainage from the nose bilateral nares. Small abrasion to the nose from tip to bridge. Small abrasion to the left lateral brow. Bleeding controlled.) Neck: Full Range of Motion, Normal Inspection, Non Tender, Supple Respiratory: Lungs Clear, Normal Breath Sounds Cardiovascular: Regular Rate, Rhythm, No Murmur Gastrointestinal: Non Tender, Soft Back: Normal Inspection, No CVA Tenderness, No Vertebral Tenderness Extremity: Normal Range of Motion, Non Tender Neurologic/Psychiatric: Alert, Oriented x3 A/P-Cardiology Admission Diagnosis Syncope Hypertension Acute renal failure Coronary artery disease Assessment/Plan Syncope, hypotension, probably secondary to hypovolemia. Receiving IV fluid, reporting improvement Persistent diarrhea, nausea. Poor appetite. Reporting some improvement, still having active diarrhea, monitored and managed by primary care physician Acute on chronic renal failure, improving slowly with IV fluid. Continue to monitor Mild elevation in troponin level, probably type II IL secondary to hypotension and renal failure. Underlying mild coronary artery disease is present, did not have any active chest pain. No acute EKG changes. Continue with conservative management for now Coronary artery disease, status post CABG 3 done on August 06, [address] Salazar using vein graft to the LAD, vein graft to the second diagonal and vein graft to the right PDA, cardiac catheterization was done on August 26, 2017 after having an abnormal stress test which showed patent BAKER to LAD and vein graft to diagonal artery and vein graft to the right coronary artery with small vessel disease di lawrence, medical therapy is recommended, continue to monitor. Hypertension, was hypotensive on admission, blood pressure is better. Continue to monitor Hyperlipidemia, hypertriglyceridemia. Maintained on statin, fenofibrate, fish oil. 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 I will continue on Lovenox for now and planning to restart Xarelto tomorrow History of foot ulcer after his DVT probably secondary to venous insufficiency, healed well. Continue to monitor Mild bilateral carotid stenosis, last ultrasound was done in July 2019. Continue to monitor Peripheral edema-discussed limiting salt in his diet, better at this time, using support hose Hypothyroidism, maintained on levothyroxin, managed by primary care physician Clinical Quality Measures DVT/VTE Risk/Contraindication: Risk Factor Score Per Nursin RFS Level Per Nursing on Admit: 2=Moderate ELISEO VALENTINO MD Nov 14, 2019 09:49
--- NOTE | 2019-11-14 11:16 | Consultation - Surgery ---
CODY MEIER MED STUDENT 11/14/19 1116: History of Present Illness History of Present Illness Patient Consulted On(yuriy/time) 11/14/19 10:20 Date Seen by Provider: Nov 14, 2019 Time Seen by Provider: 11:00 Reason for Visit: syncope History of Present Illness Consult was placed by Dr. Cornejo. The patient was hospitalized for a fall. He fell last night and was found to be in renal failure. The patient reports 4 days of diarrhea with brown watery bowel movements 4-5x per day. Some improvement with peptobsimol, which he took 4 doses of over 2 days. No worsening factors. No abdominal pain or blood in the stool. Consult placed as the patient has not had a colonoscopy before. He admits that he needs one. Allergies and Home Medications Allergies Coded Allergies: NKANo Known Allergies (Verified Allergy, Unknown, 05/18/05) Home Medications Aspirin 81 Mg Tablet.dr, 81 MG PO DAILY, (Reported) Atorvastatin Calcium 40 Mg Tablet, 40 MG PO DAILY, (Reported) Deep/Evgeny/ Bt-Org Peel/Gr T 1 Each Tablet, 1 EACH PO DAILY, (Reported) Ergocalciferol (Vitamin D2) 50,000 Unit Capsule, 50,000 UNIT PO Mo, (Reported) Escitalopram Oxalate 20 Mg Tablet, 20 MG PO DAILY, (Reported) Furosemide 40 Mg Tablet, 40 MG PO DAILY, (Reported) Insulin Determir 1,000 Units/10 Ml Soln, 20 UNITS SQ DAILY, (Reported) Levothyroxine Sodium 50 Mcg Tablet, 50 MCG PO DAILY, (Reported) Lisinopril 20 Mg Tablet, 40 MG PO DAILY, (Reported) TAKES 2 (20MG) TABLETS Melatonin 5 Mg Capsule, 5 MG PO DAILY, (Reported) Metoprolol Tartrate 25 Mg Tablet, 12.5 MG PO BID, (Reported) Multivitamin 1 Each Tablet, 1 TAB PO DAILY, (Reported) [place] 3 Polyunsat Fatty Acids 1,000 Mg Cap, 1,000 MG PO DAILY, (Reported) Potassium Chloride 20 Meq Packet, 20 MEQ PO DAILY, (Reported) Rivaroxaban 20 Mg Tablet, 20 MG PO DAILY, (Reported) Past Pxhqhxh-Fhqquq-Chters Hx Patient Social History Alcohol Use: Denies Use Recreational Drug Use: No Smoking Status: Never a Smoker 2nd Hand Smoke Exposure: No Recent Foreign Travel: No Contact w/Someone Who Travel: No Recent Infectious Disease Expo: No Recent Hopitalizations: No Immunizations Up To Date Tetanus Booster (TDap): More than 5yrs Date of Pneumonia Vaccine: Nov 25, 2012 Date of Influenza Vaccine: Nov 25, 2014 Seasonal Allergies Seasonal Allergies: No Surgeries History of Surgeries: Yes Surgeries: Abdominal, Renal, Vasectomy Respiratory History of Respiratory Disorde: No Cardiovascular History of Cardiac Disorders: Yes Cardiac Disorders: Chronic Edema/Swelling, Deep Vein Thrombosis, High Cholesterol, Hypertension Neurological History of Neurological Disord: No Reproductive System Hx Reproductive Disorders: No Genitourinary History of Genitourinary Disor: Yes Genitourinary Disorders: Kidney Stones Gastrointestinal History of Gastrointestinal Di: No Musculoskeletal History of Musculoskeletal Dis: Yes Musculoskeletal Disorders: Arthritis Endocrine History of Endocrine Disorders: Yes Endocrine Disorders: Diabetes, Insulin dep, Hypothyroidsim HEENT Hearing Impairment: Hard of Hearing Cancer History of Cancer: Yes Cancer: Bladder Psychosocial History of Psychiatric Problem: Yes Behavioral Health Disorders: Depression Integumentary History of Skin or Integumenta: Yes (cellulitis) Skin/Integumentary Disorders: Recent Skin Changes Blood Transfusions History of Blood Disorders: No (hx of P.E.) Adverse Reaction to a Blood Tr: No Family Medical History Significant Family History: Cancer Physical Exam-General Problems Physical Exam Vital Signs Vital Signs - First Documented 11/13/19 18:15 Temp 36.1 Pulse 70 Resp 18 B/P (MAP) 89/75 (80) Pulse Ox 99 O2 Delivery Room Air Capillary Refill : Less Than 3 Seconds General Appearance: WD/WN, no apparent distress HEENT: PERRL/EOMI, normal ENT inspection Neck: non-tender, supple Respiratory: chest non-tender, no respiratory distress, no accessory muscle use Cardiovascular: no edema, no JVD Gastrointestinal: non tender, soft Extremities: non-tender Neurologic/Psychiatric: alert, normal mood/affect, oriented x 3 Skin: normal color, warm/dry Data Review Labs Laboratory Tests 11/13/19 18:25: White Blood Count 10.9, Red Blood Count 4.43, Hemoglobin 13.3, Hematocrit 38L, Mean Corpuscular Volume 85, Mean Corpuscular Hemoglobin 30, Mean Corpuscular Hemoglobin Concent 36, Red Cell Distribution Width 14.6H, Platelet Count 168, Mean Platelet Volume 10.2, Neutrophils (%) (Auto) 85H, Lymphocytes (%) (Auto) 11L, Monocytes (%) (Auto) 3, Eosinophils (%) (Auto) 1, Basophils (%) (Auto) 0, Neutrophils # (Auto) 9.3H, Lymphocytes # (Auto) 1.2, Monocytes # (Auto) 0.4, Eosinophils # (Auto) 0.1, Basophils # (Auto) 0.0, Prothrombin Time 23.6H, INR Comment 2.1H, Activated Partial Thromboplast Time 39H, Sodium Level 131L, Potassium Level 6.4H, Chloride Level 108H, Carbon Dioxide Level 12L, Anion Gap 11, Blood Urea Nitrogen 100*H, Creatinine 3.37H, Estimat Glomerular Filtration Rate 18, BUN/Creatinine Ratio 30, Glucose Level 155H, Lactic Acid Level 1.07, Calcium Level 9.1, Corrected Calcium 8.7, Total Bilirubin 0.5, Aspartate Amino Transf (AST/SGOT) 22, Alanine Aminotransferase (ALT/SGPT) 16, Alkaline Phosphatase 38L, Troponin I 0.410*H, Total Protein 7.9, Albumin 4.5 11/13/19 18:44: Urine Color YELLOW, Urine Clarity CLEAR, Urine pH 5.0, Urine Specific [place] 1.015L, Urine Protein NEGATIVE, Urine Glucose (UA) TRACEH, Urine Ketones NEGATIVE, Urine Nitrite NEGATIVE, Urine Bilirubin NEGATIVE, Urine Urobilinogen 0.2, Urine Leukocyte Esterase NEGATIVE, Urine RBC (Auto) TRACE-I, Urine RBC RARE, Urine WBC RARE, Urine Squamous Epithelial Cells NONE, Urine Crystals NONE, Urine Bacteria TRACE, Urine Casts NONE, Urine Mucus NEGATIVE, Urine Culture Indicated NO 11/13/19 20:48: Sodium Level 131L, Potassium Level 5.8H, Chloride Level 108H, Carbon Dioxide Level 13L, Anion Gap 10, Blood Urea Nitrogen 95H, Creatinine 2.83#H, Estimat Glomerular Filtration Rate 22, BUN/Creatinine Ratio 34, Glucose Level 138H, Calcium Level 8.6 11/14/19 03:50: White Blood Count 7.5, Red Blood Count 3.88L, Hemoglobin 11.6L, Hematocrit 33L, Mean Corpuscular Volume 85, Mean Corpuscular Hemoglobin 30, Mean Corpuscular Hemoglobin Concent 35, Red Cell Distribution Width 14.3, Platelet Count 121L, Mean Platelet Volume 10.7H, Neutrophils (%) (Auto) 82H, Lymphocytes (%) (Auto) 12, Monocytes (%) (Auto) 5, Eosinophils (%) (Auto) 1, Basophils (%) (Auto) 0, Neutrophils # (Auto) 6.1, Lymphocytes # (Auto) 0.9L, Monocytes # (Auto) 0.4, Eosinophils # (Auto) 0.1, Basophils # (Auto) 0.0, Sodium Level 133L, Potassium Level 5.0, Chloride Level 110H, Carbon Dioxide Level 14L, Anion Gap 9, Blood Urea Nitrogen 84H, Creatinine 2.34H, Estimat Glomerular Filtration Rate 28, BUN/Creatinine Ratio 36, Glucose Level 88, Calcium Level 8.3L, Corrected Calcium 8.4L, Total Bilirubin 0.5, Aspartate Amino Transf (AST/SGOT) 17, Alanine Aminotransferase (ALT/SGPT) 13, Alkaline Phosphatase 32L, Troponin I 0.202H, Total Protein 6.6, Albumin 3.9, Phosphorus Level 4.1, Magnesium Level 2.3 Assessment/Plan Assessment/Plan Admission Diagonsis diarrhea ARF recent fall Assessment/Plan diarrhea ARF recent fall F/u in 3 weeks for colonoscopy management of other problems per medical team Clinical Quality Measures DVT/VTE Risk/Contraindication: Risk Factor Score Per Nursin RFS Level Per Nursing on Admit: 2=Moderate BEN GREEN DO 11/14/19 1702: History of Present Illness History of Present Illness History of Present Illness Consult requested by Dr. Cornejo for diarrhea/colonoscopy. patient is a 73 year old male who recently not been feeling well last couple weaks. Had fallen at home and feeling weak. Has been feeling dizzy and not sure if taking all of his medications like he is supposed to. Had ealier in week some nausea. He has been having diarrhea stools which he has about 4-5 per day which has continued. Does not see any blood in the stools. No pain with bowel movements. Never had a colonoscopy. He has elevated troponin and acute on chronic renal failure. Had poor oral intake. Patient notes nothing makes diarrhea worse that he knows. The pepto-bismol helped maybe a dose or two but he quit taking it. Allergies and Home Medications Allergies Coded Allergies: NKANo Known Allergies (Verified Allergy, Unknown, 05/18/05) Home Medications Aspirin 81 Mg Tablet.dr, 81 MG PO DAILY, (Reported) Atorvastatin Calcium 40 Mg Tablet, 40 MG PO DAILY, (Reported) Chrm/Evgeny/ Bt-Org Peel/Gr T 1 Each Tablet, 1 EACH PO DAILY, (Reported) Ergocalciferol (Vitamin D2) 50,000 Unit Capsule, 50,000 UNIT PO Mo, (Reported) Escitalopram Oxalate 20 Mg Tablet, 20 MG PO DAILY, (Reported) Furosemide 40 Mg Tablet, 40 MG PO DAILY, (Reported) Insulin Determir 1,000 Units/10 Ml Soln, 20 UNITS SQ DAILY, (Reported) Levothyroxine Sodium 50 Mcg Tablet, 50 MCG PO DAILY, (Reported) Lisinopril 20 Mg Tablet, 40 MG PO DAILY, (Reported) TAKES 2 (20MG) TABLETS Melatonin 5 Mg Capsule, 5 MG PO DAILY, (Reported) Metoprolol Tartrate 25 Mg Tablet, 12.5 MG PO BID, (Reported) Multivitamin 1 Each Tablet, 1 TAB PO DAILY, (Reported) [place] 3 Polyunsat Fatty Acids 1,000 Mg Cap, 1,000 MG PO DAILY, (Reported) Potassium Chloride 20 Meq Packet, 20 MEQ PO DAILY, (Reported) Rivaroxaban 20 Mg Tablet, 20 MG PO DAILY, (Reported) Patient Home Medication List Home Medication List Reviewed: Yes Past [place]-Swojtb-Mpjmmd Hx Reviewed Nursing Assessment Reviewed/Agree w Nursing PMH: Yes Family Medical History Significant Family History: No Pertinent Family Hx Review of Systems-General Constitutional: dizziness, weakness EENTM: No blurred vision, No double vision Respiratory: No cough, No dyspnea on exertion Cardiovascular: No chest pain, No edema Gastrointestinal: No abdominal pain; diarrhea; No nausea, No vomiting Genitourinary: No decreased output, No discharge Musculoskeletal: No back pain, No joint pain Skin: No change in color, No change in hair/nails Psychiatric/Neurological: Denies Anxiety, Denies Depressed, Denies Emotional Problems All Other Systems Reviewed Negative Unless Noted: Yes (Negative excepted noted.) Physical Exam-General Problems Physical Exam General Appearance: WD/WN, no apparent distress HEENT: PERRL/EOMI, normal ENT inspection Neck: non-tender, supple Respiratory: chest non-tender, no respiratory distress, no accessory muscle use Cardiovascular: regular rate, rhythm, no edema, no JVD Gastrointestinal: non tender, soft; No distended, No guarding, No rebound, No tenderness Rectal: deferred Back: no CVA tenderness, no vertebral tenderness Extremities: non-tender, normal inspection Neurologic/Psychiatric: no motor/sensory deficits, alert, normal mood/affect, oriented x 3 Skin: normal color, warm/dry Lymphatic: no adenopathy Assessment/Plan Assessment/Plan Assessment/Plan diarrhea ARF elevated troponin recent fall Iv fluids diet as tolerates F/u in approximately 3 weeks for colonoscopy to be further discussed never had one and with diarrhea at this time stool cultures ordered no surgical intervention needed at this time medical mangement Supervisory-Addendum Brief Verification & Attestation Participated in pt care: history, MDM, physical Personally performed: exam, history, MDM, supervision of care Care discussed with: Medical Student Procedures: n/a Results interpretation: Verified all documentation Verification and Attestation of Medical Student E/M Service A medical student performed and documented this service in my presence. I reviewed and verified all information documented by the medical student and made modifications to such information, when appropriate. I personally performed the physical exam and medical decision making. Ben Green, Nov 14, 2019,17:08 CODY MEIER MED STUDENT Nov 14, 2019 11:16 BEN GREEN DO Nov 14, 2019 17:02
--- NOTE | 2019-11-14 12:05 | History & Physical-Hospitalist ---
History of Present Illness HPI/Chief Complaint this is a 73-year-old white male who presents after he fell at home and was unresponsive for some period of time. he had lost his last spring and has been in declining health since then. His found it difficult to care for himself and has become increasingly depressed with the news, with isolation from COVID, and world events. He notes that for the last week or so he had become more and more dizzy with standing up. He has been inconsistent in taking his medications. He presents in acute renal failure with hyperkalemia and metabolic acidosis. In addition he notes that he's been having diarrhea for some extended amount of time that his only been poorly responsive to Pepto-Bismol. Troponin was found to be elevated. Source: patient Exam Limitations: no limitations Date Seen 11/14/19 Time Seen by a Provider: 09:45 Attending Physician Marleny Bobby MD PCP Jovan Freed DO Referring Physician Date of Admission Nov 13, 2019 at 22:19 Home Medications & Allergies Home Medications Reviewed patient Home Medication Reconciliation performed by pharmacy medication reconciliations cnc technician and/or nursing. Patients Allergies have been reviewed. 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) Alcohol Use: Denies Use Recreational Drug Use: No Smoking Status: Never a Smoker 2nd Hand Smoke Exposure: No Recent Foreign Travel: No Contact w/other who traveled: No Recent Hopitalizations: No Recent Infectious Disease Expo: No Immunizations Up To Date Tetanus Booster (TDap): More than 5yrs Date of Pneumonia Vaccine: Nov 25, 2012 Date of Influenza Vaccine: Nov 25, 2014 Seasonal Allergies Seasonal Allergies: No Past Medical History Surgeries: Abdominal, Renal, Vasectomy Cardiac: Chronic Edema/Swelling, Deep Vein Thrombosis, High Cholesterol, Hypertension Reproductive: No Genitourinary: Kidney Stones Musculoskeletal: Arthritis Endocrine: Diabetes, Insulin dep, Hypothyroidsim Are Your Blood Sugars Over 250: No Hearing Impairment: Hard of Hearing Cancer: Bladder Psychosocial: Depression Skin/Integumentary: Recent Skin Changes History of Blood Disorders: No (hx of P.E.) Adverse Reaction to Blood [place]: No Family History Reviewed Nursing Family Hx Cancer Review of Systems Constitutional: see HPI, dizziness, weakness EENTM: no symptoms reported Respiratory: no symptoms reported Cardiovascular: no symptoms reported Gastrointestinal: diarrhea Genitourinary: decreased output Musculoskeletal: no symptoms reported Skin: no symptoms reported Psychiatric/Neurological: Depressed, Weakness Physical Exam Physical Exam Vital Signs Vital Signs - First Documented 11/13/19 18:15 Temp 36.1 Pulse 70 Resp 18 B/P (MAP) 89/75 (80) Pulse Ox 99 O2 Delivery Room Air Capillary Refill : Less Than 3 Seconds Height, Weight, BMI Height: 5'11.00" Weight: 242lbs. 0.0oz. [id number]; 29.00 BMI Method: General Appearance: Chronically ill HEENT: Other (bruising over right eye several scrapes on his face) Neck: Limited Range of Motion Respiratory: Lungs Clear, Normal Breath Sounds, No Accessory Muscle Use, No Respiratory Distress Cardiovascular: Regular Rate, Rhythm, No Edema, No Gallop, No JVD, Other (chronic venous stasis changes) Gastrointestinal: Abnormal Bowel Sounds, Distended Rectal: Deferred Back: Normal Inspection Extremity: Normal Capillary Refill, Non Tender, No Calf Tenderness Neurologic/Psychiatric: Alert, Oriented x3, No Motor/Sensory Deficits, Normal Mood/Affect, corn shredder II-XII Norm as Tested Skin: Normal Color, Warm/Dry Lymphatic: No Adenopathy Results Results/Procedures Labs Laboratory Tests 11/13/19 18:25 11/13/19 20:48 11/14/19 03:50 Patient resulted labs reviewed. Imaging: Reviewed Imaging Report Assessment/Plan Admission Diagnosis acute renal failure non-oliguric Hyperkalemia secondary to number 1 Metabolic acidosis secondary to number 1 Elevated troponin with no evidence of acute coronary process History of hypertension in the past currently normotensive Diarrhea of uncertain etiology with no previous colonoscopy Depression Orthostasis and falling secondary to dehydration and acute renal failure Thrombocytopenia on Lovenox therapeutic History of pulmonary emboli on chronic Xarelto plan for IV fluid hydration cardiology consult general surgery consult need for colonoscopy culture stools physical therapy if needed Admission Status: Inpatient Order (span 2 midnights) Reason for Inpatient Admission: multiple comorbidities requiring further evaluation and testing Clinical Quality Measures DVT/VTE Risk/Contraindication: Risk Factor Score Per Nursin RFS Level Per Nursing on Admit: 2=Moderate Copy Copies To 1: JOVAN FREED KATHLEEN M MD Nov 14, 2019 12:05
[2019-11-14] MEDS: meTOprolol TARTRATE 25 MG (LOPRESSOR) TABLET PO SCH (20:17)
[2019-11-15] VITALS (16 sets, daily range): BP systolic 98–141; BP diastolic 48–78
[2019-11-15 03:18] LABS: BASOPHILS % (AUTO) 0 % (0-10); EOSINOPHILS # (AUTO) 0.1 10^3/uL (0.0-0.3); EOSINOPHILS % (AUTO) 1 % (0-10); HEMATOCRIT 30 % (40-54); HEMOGLOBIN 10.7 G/DL (13.3-17.7); LYMPHOCYTES # (AUTO) 1.3 X 10^3 (1.0-4.0); LYMPHOCYTES % (AUTO) 23 % (12-44); MEAN CORPUSCULAR HEMOGLOBIN 30 PG (25-34); MEAN CORPUSCULAR HGB CONC 35 G/DL (32-36); MEAN CORPUSCULAR VOLUME 85 FL (80-99); MONOCYTES # (AUTO) 0.3 X 10^3 (0.0-1.0); MONOCYTES % (AUTO) 5 % (0-12); NEUTROPHILS # (AUTO) 4.1 X 10^3 (1.8-7.8); NEUTROPHILS % (AUTO) 72 % (42-75); PLATELET COUNT 96 10^3/uL (130-400); WHITE BLOOD COUNT 5.7 10^3/uL (4.3-11.0)
[2019-11-15 03:29] LABS: ALBUMIN 3.5 GM/DL (3.2-4.5); POTASSIUM 4.6 MMOL/L (3.6-5.0)
[2019-11-15 03:30] LABS: INR 1.2 (0.8-1.4); PROTHROMBIN TIME PATIENT 15.7 SEC (12.2-14.7)
[2019-11-15 03:31] LABS: CALCIUM 7.9 MG/DL (8.5-10.1)
[2019-11-15 03:32] LABS: TOTAL PROTEIN 5.9 GM/DL (6.4-8.2)
[2019-11-15 03:33] LABS: BILIRUBIN,TOTAL 0.6 MG/DL (0.1-1.0)
[2019-11-15 03:35] LABS: CREATININE SERUM 1.51 MG/DL (0.60-1.30); PHOSPHORUS 2.1 MG/DL (2.3-4.7)
[2019-11-15 03:39] LABS: MAGNESIUM 2.1 MG/DL (1.6-2.4)
[2019-11-15] MEDS: MAGNESIUM 1 GM/100 ML IVPB 100 ML IV SCH (04:09)
[2019-11-15] MEDS: POTASSIUM CL 10MEQ/50ML IVPB 50 ML IV SCH (04:09)
[2019-11-15] MEDS: KCL 20 MEQ TAB (K-DUR) PO SCH (04:09)
[2019-11-15] MEDS: NS IV 1000 ML 1,000 ML IV SCH ×2 (06:15→14:31)
--- NOTE | 2019-11-15 08:01 | Diagnostic Imaging Report ---
INDICATION: Acute renal failure and hypotension. Frontal chest obtained at 0307 a.m. and compared to 11/14/2019. Heart is borderline in size. Patient has had prior sternotomy. The lungs are clear. There is no pneumothorax or pleural fluid. IMPRESSION: Postop changes with borderline cardiomegaly. No acute process in the chest. Dictated by: Dictated on workstation # [id number]
[2019-11-15] MEDS ORDERED: RIVAROXABAN 20 MG TABLET (XARELTO) PO SCH (10:00)
--- NOTE | 2019-11-15 10:00 | Cardiology Progress Note ---
Subjective Date Seen by Provider: Nov 15, 2019 Time Seen by Provider: 09:58 Subjective/Events-last exam Patient is laying down in bed, feeling better, reporting improvement in his symptoms. No new complaint Review of Systems General: No Chills, No Night Sweats, No Fatigue, No Malaise, No Appetite, No Other HEENT: No Head Aches, No Visual Changes, No Eye Pain, No Ear Pain, No Dysphasia, No Sinus Congestion, No Post Nasal Drip, No Sore Throat, No Other Pulmonary: No Dyspnea, No Cough, No Pleuritic Chest Pain, No Other Cardiovascular: No: Chest Pain, Palpitations, Orthopnea, Paroxysmal Noc. Dyspnea, Edema, Lt Headedness, Other Focused Exam Lactate Level 11/13/19 18:25: Lactic Acid Level 1.07 Objective-Cardiology Exam Last Set of Vital Signs Vital Signs 11/15/19 11/15/19 08:00 09:00 Temp 36.6 Pulse 71 Resp 20 B/P (MAP) 133/75 (94) Pulse Ox 99 O2 Delivery Room Air Capillary Refill : Less Than 3 Seconds I&O Intake and Output 11/15/19 00:00 Intake Total 3630 ml Output Total 4950 ml Balance -1320 ml Intake Oral 2630 ml IV Total 1000 ml Output Urine Total 4950 ml # Bowel Movements 2 General: Alert, Oriented X3, Cooperative HEENT: Atraumatic, PERRLA Neck: Supple, No JVD, No Thyromegaly Lungs: Clear to Auscultation, Normal Air Movement Heart: Regular Rate, Normal S1, Normal S2, No Murmurs Abdomen: Normal Bowel Sounds, Soft, No Tenderness, No Hepatosplenomegaly, No Masses Extremities: No Clubbing, No Cyanosis, No Edema, Normal Pulses, No Tenderness /Swelling Skin: No Rashes, No Breakdown, No Significant Lesion Neuro: Normal Speech, Normal Tone, Sensation Intact Psych/Mental Status: Mental Status NL, Mood NL Results Lab Laboratory Tests 11/15/19 02:52 A/P-Cardiology Admission Diagnosis Syncope Hypertension Acute renal failure Coronary artery disease Assessment/Plan Syncope, hypotension, probably secondary to hypovolemia. Feeling better at this time, blood pressure and heart rate are better. Persistent diarrhea, nausea. Poor appetite. Reporting some improvement, still having active diarrhea, monitored and managed by primary care physician Acute on chronic renal failure, better today, continue on IV fluid and monitor renal function Mild elevation in troponin level, probably type II CT secondary to hypotension and renal failure. did not have any active chest pain. No acute EKG changes. Continue with conservative management for now Coronary artery disease, status post CABG 3 done on August 06, [address] Salazar using vein graft to the LAD, vein graft to the second diagonal and vein graft to the right PDA, cardiac catheterization was done on August 26, 2017 after having an abnormal stress test which showed patent BAKER to LAD and vein graft to diagonal artery and vein graft to the right coronary artery with small vessel disease distally, medical therapy is recommended, continue to monitor. Hypertension, was hypotensive on admission, blood pressure is better. Continue to monitor Hyperlipidemia, hypertriglyceridemia. Maintained on statin, fenofibrate, fish oil. 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 I will continue on Lovenox for now and planning to restart Xarelto tomorrow History of foot ulcer after his DVT probably secondary to venous insufficiency, healed well. Continue to monitor Mild bilateral carotid stenosis, last ultrasound was done in July 2019. Continue to monitor Peripheral edema-discussed limiting salt in his diet, better at this time, using support hose Hypothyroidism, maintained on levothyroxin, managed by primary care physician Clinical Quality Measures DVT/VTE Risk/Contraindication: Risk Factor Score Per Nursin RFS Level Per Nursing on Admit: 2=Moderate ELISEO VALENTINO MD Nov 15, 2019 10:00
--- NOTE | 2019-11-15 10:05 | Progress Note - Hospitalist ---
Subjective HPI/CC On Admission Date Seen by Provider: Nov 15, 2019 Time Seen by Provider: 09:15 this is a 73-year-old white male who presents after he fell at home and was unresponsive for some period of time. he had lost his last spring and has been in declining health since then. His found it difficult to care for himself and has become increasingly depressed with the news, with isolation from COVID, and world events. He notes that for the last week or so he had become more and more dizzy with standing up. He has been inconsistent in taking his medications. He presents in acute renal failure with hyperkalemia and metabolic acidosis. In addition he notes that he's been having diarrhea for some extended amount of time that his only been poorly responsive to Pepto-Bismol. Troponin was found to be elevated. Subjective/Events-last exam patient says he feels much better this morning. He actually has a bit of a twinkle in his eye. He feels like this has been a wake-up call to take better care of himself and Be more engaged in a positive manner. he is anxious to be transferred to fourth floor and begin ambulation. Labs are reviewed. Patient's case is discussed with Dr. Sanches who feels like the elevated troponin was secondary to hypovolemia and acute renal failure. He has no complaints otherwise this morning Review of Systems Neurological: Weakness Focused Exam Lactate Level 11/13/19 18:25: Lactic Acid Level 1.07 Objective Exam Vital Signs Vital Signs Date Time Temp Pulse Resp B/P (MAP) Pulse Ox O2 Delivery O2 Flow Rate FiO2 11/15/19 09:00 71 20 133/75 (94) 99 Room Air 11/15/19 08:00 36.6 Capillary Refill : Less Than 3 Seconds General Appearance: No Apparent Distress, WD/WN HEENT: Other (bruising around his head and small excoriations) Neck: Limited Range of Motion Respiratory: Chest Non Tender, Lungs Clear, Normal Breath Sounds, No Accessory Muscle Use, No Respiratory Distress Cardiovascular: Regular Rate, Rhythm, No Gallop, No Murmur, Systolic Murmur Gastrointestinal: Non Tender, Soft, Abnormal Bowel Sounds, Distended Rectal: Deferred Back: Normal Inspection Extremity: Other (chronic venous stasis changes) Neurologic/Psychiatric: Alert, Oriented x3, No Motor/Sensory Deficits, Normal Mood/Affect Skin: Normal Color, Warm/Dry Results/Procedures Lab Laboratory Tests 11/15/19 02:52 Patient resulted labs reviewed. Imaging: Reviewed Imaging Report Assessment/Plan Assessment and Plan Assess & Plan/Chief Complaint acute renal failure wrg-[id number]-[id number] to dehydration improving Hyperkalemia secondary to number 1-resolved Metabolic acidosis secondary to number 1-on bicarbonate tablets Elevated troponin with no evidence of acute coronary process-felt to be secondary to hypovolemia cardiology consult appreciated History of hypertension in the past currently normotensive Diarrhea of uncertain etiology with no previous colonoscopy-surgery has plan to do this as an outpatient Depression-affect improved Orthostasis and falling secondary to dehydration and acute renal failure-we'll begin ~ambulate Thrombocytopenia on Lovenox therapeutic-DC Lovenox changed to Xarelto History of pulmonary emboli on chronic Xarelto plan to transfer to medical floor increase ambulation possible discharge in the morning Clinical Quality Measures DVT/VTE Risk/Contraindication: Risk Factor Score Per Nursin RFS Level Per Nursing on Admit: 2=Moderate TUAN VERA MD Nov 15, 2019 10:05
--- NOTE | 2019-11-15 10:20 | NUR ---
THIS NURSE SPOKE WITH DTR. DTR DAVE VOICED CONCERNS OF PATIENT CURRENT LIVING CONDITIONS, STATES PT IS A HOARDER, HAS TRASH ET VERY CLUTTERED ET PATIENT NOT TAKING MEDICATIONS PROPERLY. DTR LIVES IN [place] ET WOULD LIKE TO SEE PATIENT IN ASSISTED LIVING CLOSER TO HER. SHE PLANS TO TAKE PATIENT HOME WITH HER FOR A WEEK OR SO WHEN HE IS DISCHARGED, TO MAKE SURE HE IS STRONG BEFORE GOING TO HIS HOME.
--- NOTE | 2019-11-15 10:29 | Progress Note - Surgery ---
CODY MEIER MED STUDENT 11/15/19 1028: Subjective Date Seen by a Provider: Nov 15, 2019 Time Seen by a Provider: 08:10 Subjective/Events-last exam Oscar states he is doing better. No diarrhea yesterday. Reports prior abdominal pain after injections into abdomen, previously 2/10 improved with repositioning but now absent 0/10. Denies nausea, vomiting, fever, chills, chest pain, blood in the stool. Focused Exam Lactate Level 11/13/19 18:25: Lactic Acid Level 1.07 Objective Exam Vital Signs Date Time Temp Pulse Resp B/P (MAP) Pulse Ox O2 Delivery O2 Flow Rate FiO2 11/15/19 10:00 81 23 121/63 (82) 100 Room Air 11/15/19 09:00 71 20 133/75 (94) 99 Room Air 11/15/19 08:00 73 22 141/69 (93) 98 Room Air 11/15/19 08:00 36.6 11/15/19 07:00 60 17 108/78 (88) 99 Room Air 11/15/19 07:00 69 11/15/19 06:00 65 18 124/59 (80) 96 Room Air 11/15/19 05:00 66 19 122/60 (80) 99 Room Air 11/15/19 04:00 100 Room Air 11/15/19 04:00 59 22 133/63 (86) 100 Room Air 11/15/19 03:00 72 16 98/48 (65) 100 Room Air 11/15/19 02:57 37.0 11/15/19 02:00 63 21 122/72 (89) 98 Room Air 11/15/19 01:00 62 19 101/56 (71) 96 Room Air 11/15/19 01:00 62 11/15/19 00:00 66 20 134/63 (86) 100 Room Air 11/15/19 00:00 100 Room Air 11/14/19 23:00 61 13 125/72 (89) 95 Room Air 11/14/19 22:00 60 19 117/55 (75) 99 Room Air 11/14/19 21:00 61 22 115/64 (81) 99 Room Air 11/14/19 20:19 37.3 Room Air 11/14/19 20:00 73 21 128/65 (86) 100 Room Air 11/14/19 20:00 100 Room Air 11/14/19 19:00 75 16 126/58 (80) 100 Room Air 11/14/19 19:00 75 11/14/19 18:00 77 14 119/43 (68) 96 Room Air 11/14/19 17:00 70 14 123/50 (74) 100 Room Air 11/14/19 16:00 100 Room Air 11/14/19 16:00 79 21 139/62 (87) 100 Room Air 11/14/19 15:00 71 26 111/51 (71) 97 Room Air 11/14/19 14:00 75 19 96/48 (64) 98 Room Air 11/14/19 13:00 76 15 100/64 (76) 99 Room Air 11/14/19 12:51 67 11/14/19 12:00 36.6 11/14/19 12:00 66 13 119/57 (77) 99 Room Air 11/14/19 12:00 100 Room Air 11/14/19 11:00 69 26 121/62 (81) 100 Room Air I & O 11/15/19 07:00 Intake Total 4080 ml Output Total 4700 ml Balance -620 ml Capillary Refill : Less Than 3 Seconds General Appearance: No Apparent Distress, WD/WN HEENT: PERRL/EOMI, Normal ENT Inspection, Other (bruising around his head and small excoriations) Neck: Full Range of Motion, Non Tender, Limited Range of Motion Respiratory: Chest Non Tender, Lungs Clear, Normal Breath Sounds, No Accessory Muscle Use, No Respiratory Distress Cardiovascular: Regular Rate, Rhythm, No Gallop Gastrointestinal: non tender, soft; No distended, No guarding, No rebound, No tenderness Extremity: Other (chronic venous stasis changes worse RLE than LLE) Neurologic/Psychiatric: Alert, Oriented x3, No Motor/Sensory Deficits, Normal Mood/Affect Skin: Normal Color, Warm/Dry Lymphatic: No Adenopathy Results Lab Laboratory Tests 11/14/19 12:23: Urine Random Sodium 57, Urine Random Potassium 18, Urine Random Chloride 72 11/15/19 02:52: White Blood Count 5.7, Red Blood Count 3.54L, Hemoglobin 10.7L, Hematocrit 30L, Mean Corpuscular Volume 85, Mean Corpuscular Hemoglobin 30, Mean Corpuscular Hemoglobin Concent 35, Red Cell Distribution Width 14.1, Platelet Count 96L, Mean Platelet Volume 11.0H, Neutrophils (%) (Auto) 72, Lymphocytes (%) (Auto) 23, Monocytes (%) (Auto) 5, Eosinophils (%) (Auto) 1, Basophils (%) (Auto) 0, Neutrophils # (Auto) 4.1, Lymphocytes # (Auto) 1.3, Monocytes # (Auto) 0.3, Eosinophils # (Auto) 0.1, Basophils # (Auto) 0.0, Prothrombin Time 15.7H, INR Comment 1.2, Sodium Level 136, Potassium Level 4.6, Chloride Level 113H, Carbon Dioxide Level 16L, Anion Gap 7, Blood Urea Nitrogen 47H, Creatinine 1.51H, Estimat Glomerular Filtration Rate 46, BUN/Creatinine Ratio 31, Glucose Level 92, Calcium Level 7.9L, Corrected Calcium 8.3L, Phosphorus Level 2.1L, Magnesium Level 2.1, Total Bilirubin 0.6, Aspartate Amino Transf (AST/SGOT) 135H, Alanine Aminotransferase (ALT/SGPT) 47, Alkaline Phosphatase 55, Total Protein 5.9L, Albumin 3.5 Microbiology 11/13/19 MRSA Screen - Final, Complete MRSA not isolated 11/13/19 Blood Culture - Preliminary, Resulted No growth 11/13/19 Urine Culture - Final, Complete NO GROWTH Assessment/Plan Assessment/Plan Assessment/Plan diarrhea ARF elevated troponin recent fall Iv fluids diet as tolerates medical mangement Will sign off this patient as diarrhea has resolved F/u in approximately 3 weeks for colonoscopy discussion Clinical Quality Measures DVT/VTE Risk/Contraindication: Risk Factor Score Per Nursin RFS Level Per Nursing on Admit: 2=Moderate BEN GREEN DO 11/15/19 1105: Subjective Subjective/Events-last exam feeling better today no diarrhea yesterday evening and today thus far he states. No abdominal pain. Denies nausea vomiting fever sweats chills shortness of breath or chest pain. Objective Exam General Appearance: No Apparent Distress, WD/WN Neck: Non Tender, Supple Respiratory: Chest Non Tender, No Accessory Muscle Use, No Respiratory Distress Cardiovascular: Regular Rate, Rhythm, No Gallop Gastrointestinal: non tender, soft; No distended, No guarding, No rebound, No tenderness; hernia (umbilical reducible) Extremity: Non Tender, Other (chronic venous stasis changes worse RLE than LLE) Neurologic/Psychiatric: Alert, Oriented x3 Skin: No Jaundice Lymphatic: No Adenopathy Assessment/Plan Assessment/Plan Assessment/Plan diarrhea ARF elevated troponin recent fall Iv fluids diet as tolerates no diarrhea currently medical mangement Will sign off call if needed F/u in approximately 3 weeks for colonoscopy discussion since he has never had one Supervisory-Addendum Brief Verification & Attestation Participated in pt care: history, MDM, physical Personally performed: exam, history, MDM, supervision of care Care discussed with: Medical Student Procedures: n/a Results interpretation: Verified all documentation Verification and Attestation of Medical Student E/M Service A medical student performed and documented this service in my presence. I reviewed and verified all information documented by the medical student and made modifications to such information, when appropriate. I personally performed the physical exam and medical decision making. Ben Green, Nov 15, 2019,11:05 CODY MEIER MED STUDENT Nov 15, 2019 10:28 BEN GREEN DO Nov 15, 2019 11:05
[2019-11-15] MEDS: LEVOTHYROXINE 50 MCG (LEVOTHROID) TAB PO SCH (10:31)
[2019-11-15] MEDS: meTOprolol TARTRATE 25 MG (LOPRESSOR) TABLET PO SCH ×2 (10:31→20:52)
[2019-11-15] MEDS: ASPIRIN E.C. 81 MG (ECOTRIN) TAB PO SCH (10:31)
[2019-11-15] MEDS: SODIUM BICARBONATE 650 MG TABLET (NON-FORMULARY) PO SCH ×3 (10:31→20:52)
--- NOTE | 2019-11-15 12:50 | NUR ---
PT TRANSFERRED DOWN FROM ICU TO ROOM 414. PT TOLERATED TRANSFER WELL. REPORT RECEIVED FROM NILESH KUNZ.
--- NOTE | 2019-11-15 17:33 | NUR ---
DR. VERA NOTIFIED THAT PT'S OCCULT BLOOD STOOL SAMPLE CAME BACK POSITIVE. BRIEF TELEPHONE CONVERSATION WITH DR. VERA, SHE REQUESTED DR. JEFFREY BE NOTIFIED. DR. JEFFREY NOTIFIED. BRIEF TELEPHONE CONVERSATION WITH DR. JEFFREY, HE STATED THAT THE PLAN REMAINS THE SAME FOR THE PT TO RECEIVED OUTPATIENT EGD AND COLONOSCOPY.
[2019-11-16] MEDS: NS IV 1000 ML 1,000 ML IV SCH ×2 (00:06→08:03)
[2019-11-16 00:16] VITALS: BP 134/73
[2019-11-16 03:32] VITALS: BP 124/68
[2019-11-16 05:53] LABS: BASOPHILS % (AUTO) 0 % (0-10); EOSINOPHILS # (AUTO) 0.1 10^3/uL (0.0-0.3); EOSINOPHILS % (AUTO) 2 % (0-10); HEMATOCRIT 29 % (40-54); LYMPHOCYTES # (AUTO) 1.8 X 10^3 (1.0-4.0); LYMPHOCYTES % (AUTO) 35 % (12-44); MEAN CORPUSCULAR HEMOGLOBIN 30 PG (25-34); MEAN CORPUSCULAR HGB CONC 35 G/DL (32-36); MEAN CORPUSCULAR VOLUME 87 FL (80-99); MEAN PLATELET VOLUME 10.6 FL (7.4-10.4); MONOCYTES # (AUTO) 0.3 X 10^3 (0.0-1.0); MONOCYTES % (AUTO) 6 % (0-12); NEUTROPHILS # (AUTO) 3.1 X 10^3 (1.8-7.8); NEUTROPHILS % (AUTO) 58 % (42-75); PLATELET COUNT 113 10^3/uL (130-400); WHITE BLOOD COUNT 5.3 10^3/uL (4.3-11.0)
[2019-11-16 06:04] LABS: ALBUMIN 3.4 GM/DL (3.2-4.5)
[2019-11-16 06:05] LABS: POTASSIUM 4.6 MMOL/L (3.6-5.0)
[2019-11-16 06:06] LABS: CALCIUM 7.9 MG/DL (8.5-10.1)
[2019-11-16 06:07] LABS: TOTAL PROTEIN 5.9 GM/DL (6.4-8.2)
[2019-11-16 06:09] LABS: BILIRUBIN,TOTAL 0.5 MG/DL (0.1-1.0)
[2019-11-16 06:11] LABS: CREATININE SERUM 1.34 MG/DL (0.60-1.30)
[2019-11-16 07:45] VITALS: BP 116/58
[2019-11-16] MEDS: meTOprolol TARTRATE 25 MG (LOPRESSOR) TABLET PO SCH (08:01)
[2019-11-16] MEDS: LEVOTHYROXINE 50 MCG (LEVOTHROID) TAB PO SCH (08:01)
[2019-11-16] MEDS: SODIUM BICARBONATE 650 MG TABLET (NON-FORMULARY) PO SCH ×2 (08:01→12:05)
[2019-11-16] MEDS: ASPIRIN E.C. 81 MG (ECOTRIN) TAB PO SCH (08:01)
--- NOTE | 2019-11-16 10:25 | Physical Therapy Evaluation ---
PT Evaluation-General Medical Diagnosis Admission Date Nov 13, 2019 at 22:19 Medical Diagnosis: ARF Onset Date: Nov 13, 2019 Therapy Diagnosis Therapy Diagnosis: debility Height/Weight Height (Feet): 5 Height (Inches): 11.00 Weight (Pounds): 242 Weight (Ounces): 0.0 Precautions Precautions/Isolations: Fall Prevention, Standard Precautions Referral Physician: Clemente Reason for Referral: Evaluation/Treatment Medical History Pertinent Medical History: DM, HTN, Hypothroidism, Renal Insufficiency Current History ER secondary to weakness and syncope Reviewed History: Yes Social History Home: Single Level Current Living Status: Alone Entry Into Home: Level Entry Prior Prior Level of Function SCALE: Activities may be completed with or without assistive devices. 9-Mkeiiyvzkt-xtsmxrt completes the activity by him/herself with no assistance from a helper. 5-Set-up or Clean-up Assistance-helper sets up or cleans up; patient completes activity. [place] assists only prior to or following the activity. 4-Supervision or Touching Assistance-helper provides verbal cues and/or touching/steadying and/or contact guard assistance as patient completes activity. Assistance may be provided throughout the activity or intermittently. 3-Partial/Moderate Assistance-helper does LESS THAN HALF the effort. [place] lifts, holds or supports trunk or limbs, but provides less than half the effort. 2-Substantial/Maximal Assistance-helper does MORE THAN HALF the effort. [place] lifts or holds trunk or limbs and provides more than half the effort. 4-Zqiikyeua-vnrjmg does ALL the effort. Patient does none of the effort to complete the activity. Or, the assistance of 2 or more helpers is required for the patient to complete the activity. If activity was not attempted, code reason: 7-Patient Refused. 9-Not Applicable-not attempted and the patient did not perform the activity before the current illness, exacerbation or injury. 10-Not Attempted due to Environmental Limitations-(lack of equipment, weather restraints, etc.). 88-Not Attempted due to Medical Conditions or Safety Concerns. Bed Mobility: 6 Transfers (B,C,W/C): 6 Gait: 6 Stairs: 6 Indoor Mobility (Ambulation): Independent Stairs: Independent Prior Devices Use: None Prior Device Use: 4WW PT Evaluation-Current Subjective Patient is very agreeable to participate with skilled therapy. Pain Numeric Pain Scale: 0-No Pain Location: No Pain Reported Objective Patient Orientation: Normal For Age Attachments: IV ROM/Strength ROM Lower Extremities bilateral LE WFL Strength Lower Extremities 4+/5 grossly bilateral LE Integumentary/Posture Integumentary refer to nursing notes Bowel Incontinence: No (toileted self independently) Bladder Incontinence: No Posture WFL Neuromuscular (Tone, Coordination, Reflexes) grossly intact Sensory Vision: Functional Hearing: Functional Transfers Roll Left to Right (QC): 6 Sit to Lying (QC): 6 Lying to Sitting/Side of Bed(Q: 6 Sit to Stand (QC): 6 Chair/Drn-ij-Ugynv Xfer(QC): 6 Toilet Transfer (QC): 6 Gait Does the Patient Walk?: Yes Mode of Locomotion: Walk Anticipated Mode of Locomotion: Walk Walk 10 feet (QC): 6 Walk 50 ft with 2 Turns(QC): 6 Walk 150 ft (QC): 6 Distance: 750' Gait Assistive Device: FWW Comments/Gait Description safe and functional and will utilize 4WW at home per report Balance Sitting Static: Normal Sitting Dynamic: Normal Standing Static: Normal Standing Dynamic: Normal Assessment/Needs 73 y.o. male, is currently at independent [facility] with all gross motor skills and does not require skilled therapy intervention. Rehab Potential: Fair PT Plan Treatment/Plan Treatment Plan: Discontinue PT, goals met Treatment Duration: Nov 16, 2019 Frequency: 1 time per week Estimated Hrs Per Day: .5 hour per day Patient and/or Family Agrees t: Yes Time/GCodes Time In: 815 Time Out: 844 Total Billed Treatment Time: 29 Total Billed Treatment 1 visit EVModC 15 min FA 14 min ZARIA BIRD PT Nov 16, 2019 10:25
[2019-11-16] MEDS ORDERED: NF-SODBICA PO (10:27)
[2019-11-16] MEDS ORDERED: INSU100V5 SQ (10:27)
--- NOTE | 2019-11-16 10:29 | Discharge Summary ---
Discharge Summary Hospital Course Was the Problem List Reviewed?: Yes Hospital Course Date of Admission: Nov 13, 2019 at 22:19 Admission Diagnosis : Family Physician/Provider: Genaro Freed DO Date of Discharge: 11/16/19 Discharge Diagnosis: Acute renal failure Elevated Troponin Hypotension Hemoccult positive stools On anticoagulation Hospital Course: Hospital Course: Pt had a short hospital course when he was admitted for acute renal failure with creatinine of 3.37 which resolved with gentle IV fluids to 1.34 at time of DC. Elevated troponin was found to be a type 2 NSTEMI and hemocults were positive but nonbloody stools so Dr. Green will perform colonoscopy as an outpatient. Overall he did well. Having some insomnia and a lot of urination with the IV fluids but he will have close follow up with his PCP Dr. Freed and Dr. Green for colonoscopy. I did hold his Lasix, Potassium, and Angiotensin Receptor Nolan in the meantime. Labs and Pending Lab Test: Laboratory Tests 11/15/19 15:54: Stool Occult Blood Immunoassay POSITIVEH 11/16/19 05:02: White Blood Count 5.3, Red Blood Count 3.33L, Hemoglobin 10.0L, Hematocrit 29L, Mean Corpuscular Volume 87, Mean Corpuscular Hemoglobin 30, Mean Corpuscular Hemoglobin Concent 35, Red Cell Distribution Width 14.5, Platelet Count 113L, Mean Platelet Volume 10.6H, Neutrophils (%) (Auto) 58, Lymphocytes (%) (Auto) 35, Monocytes (%) (Auto) 6, Eosinophils (%) (Auto) 2, Basophils (%) (Auto) 0, Neutrophils # (Auto) 3.1, Lymphocytes # (Auto) 1.8, Monocytes # (Auto) 0.3, Eosinophils # (Auto) 0.1, Basophils # (Auto) 0.0, Sodium Level 138, Potassium Level 4.6, Chloride Level 113H, Carbon Dioxide Level 18L, Anion Gap 7, Blood Urea Nitrogen 26H, Creatinine 1.34H, Estimat Glomerular Filtration Rate 53, BU N/Creatinine Ratio 19, Glucose Level 83, Calcium Level 7.9L, Corrected Calcium 8.4L, Total Bilirubin 0.5, Aspartate Amino Transf (AST/SGOT) 57H, Alanine Aminotransferase (ALT/SGPT) 58H, Alkaline Phosphatase 53, Total Protein 5.9L, Albumin 3.4 Microbiology 11/13/19 MRSA Screen - Final, Complete MRSA not isolated 11/13/19 Blood Culture - Preliminary, Resulted Probable Coag Negative Staph See Comments 11/13/19 Urine Culture - Final, Complete NO GROWTH Home Meds Active Sodium Bicarbonate 650 Mg Tablet 650 Mg PO BID Levemir (Insulin Determir) 1,000 Units/10 Ml Soln 10 Units SQ DAILY 14 Days Reported Apple Cider Vinegar Plus Tb (Chrm/Cider/ Bt-Org Peel/Gr T) 1 Each Tablet 1 Each PO DAILY Metoprolol Tartrate 25 Mg Tablet 12.5 Mg PO BID Atorvastatin Calcium 40 Mg Tablet 40 Mg PO DAILY Klor-Con (Potassium Chloride) 20 Meq Packet 20 Meq PO DAILY Furosemide 40 Mg Tablet 40 Mg PO DAILY Melatonin 5 Mg Capsule 5 Mg PO DAILY Fish Oil 1,000 mg Capsule ([place] 3 Polyunsat Fatty Acids) 1,000 Mg Cap 1,000 Mg PO DAILY Lexapro (Escitalopram Oxalate) 20 Mg Tablet 20 Mg PO DAILY Aspirin EC (Aspirin) 81 Mg Tablet.dr 81 Mg PO DAILY Lisinopril 20 Mg Tablet 40 Mg PO DAILY TAKES 2 (20MG) TABLETS Levothyroxine Sodium 50 Mcg Tablet 50 Mcg PO DAILY Multi-Day Vitamins (Multivitamin) 1 Each Tablet 1 Tab PO DAILY Vitamin D2 (Ergocalciferol (Vitamin D2)) 50,000 Unit Capsule 50,000 Unit PO MO Xarelto Tablet (Rivaroxaban) 20 Mg Tablet 20 Mg PO DAILY Assessment/Pt Instructions pcp 1 week Discharge Planning: <30 minutes discharge planning Discharge Instructions Discharge Diet: No Restrictions, Regular Diet Activity as Tolerated: Yes Discharge Physical Examination Vital Signs Vital Signs Date Time Temp Pulse Resp B/P (MAP) Pulse Ox O2 Delivery O2 Flow Rate FiO2 11/16/19 09:00 100 Room Air 11/16/19 07:45 35.9 63 18 116/58 (77) General Appearance: No Apparent Distress, WD/WN, Chronically ill Respiratory: Normal Breath Sounds Cardiovascular: Regular Rate, Rhythm Neurologic/Psychiatric: Alert, Oriented x3 Allergies: Coded Allergies: NKANo Known Allergies (Verified Allergy, Unknown, 05/18/05) Discharge Summary Date of Admission Nov 13, 2019 at 22:19 Date of Discharge Discharge Date: Nov 16, 2019 Admission Diagnosis acute renal failure non-oliguric Hyperkalemia secondary to number 1 Metabolic acidosis secondary to number 1 Elevated troponin with no evidence of acute coronary process History of hypertension in the past currently normotensive Diarrhea of uncertain etiology with no previous colonoscopy Depression Orthostasis and falling secondary to dehydration and acute renal failure Thrombocytopenia on Lovenox therapeutic History of pulmonary emboli on chronic Xarelto plan for IV fluid hydration cardiology consult general surgery consult need for colonoscopy culture stools physical therapy if needed Clinical Quality Measures DVT/VTE Risk/Contraindication: Risk Factor Score Per Nursin RFS Level Per Nursing on Admit: 2=Moderate MATIAS ACEVEDO DO Nov 16, 2019 10:29
--- NOTE | 2019-11-16 11:56 | NUR ---
IV ACCESS REMOVED AT THIS TIME COVERED WITH 2X2 GAUZE AND SECURED WITH PAPER TAPE. DISCHARGE ALSO REVIEWED WITH PATIENT AND PATIENT GIVEN 2 FOLLOW UP VISITS REVIEWED WITH PATIENT PRIOR TO DISCHARGE FROM [facility]. THIS RN WILL CONTINUE MONITOR THIS PATIENT THROUGHOUT THE REMAINDER OF THE SHIFT.
--- NOTE | 2019-11-16 12:04 | Occ Therapy Progress Note ---
Therapy Progress Note OT evaluation received and chart reviewed. OT introduced self to pt and educated him on the purpose and benefits of OT. Pt verbalized understanding. Pt indicates he has no concerns with completing ADLs upon returning home and he plans on discharging later this afternoon. Pt able to don/doff footwear without difficulty, and he is independent with functional mobility using FWW at this time. Based on pt being at PLOF and having no concerns with completing ADLs at home, no skilled OT services are indicated at this time. D/C from OT. JESSICA HAMMER OT Nov 16, 2019 12:04
--- NOTE | 2019-11-16 12:50 | NUR ---
I WAS UNABLE TO COMPLETE THIS PATIENT'S MED REC DUE TO THE PATIENT BEING DISCHARGED.
--- NOTE | 2019-11-16 13:10 | NUR ---
IRF Evaluation Determination: Denied Explanation: Chart review complete and it appears patient is ambulating (750ft, FWW) and transferring with independence; therefore, patient does not require intensive therapies. Thank you for this referral.
--- NOTE | 2019-11-16 13:37 | NUR ---
RD ASSESSMENT PMHx: DVT; hypercholesterolemia; HTN; DM; hypothyroidism; CA(bladder) PT INTERACTION: Pt was awake and pleasant during nutrition assessment. Note pt appeared confused at times and needed redirection during assessment. Pt states current appetite is "getting better." Note avg PO intake 100% x2d, per chart review. Pt states following a regular diet at home, and has no issues with chewing/swallowing food. Pt states no recent issues with nausea, vomiting or constipation. Pt states some issues with diarrhea. Note last BM was 11/15, and pt not currently on bowel regimen per chart review. Pt states reent 40# wt loss x6mon. Note unable to determine recent wt hx, per chart review. Pt states current DM management is good, and better controlled with his wt loss. Note unable to determine recent HbA1c, per chart review. ABNORMAL NUTRITION-RELATED LAB VALUES LOW: Ca 7.9; Pro 5.9 HIGH: Cl 113; BUN 26; cr 1.34; AST 57; ALT 58 Est. kcal needs: 1900 kcal | 20 kcal/kg Est. Pro needs: 76 g Pro | 0.8 g Pro/kg PES STATEMENT: Given current PO intake, no nutrition diagnosis at this time (NO-1.1) INTERVENTION: Continue with current diet order of CHO 60g/m 1snack diet. Offered diet education on DM management, but pt declined at this time. May attempt to offer again prior to discharge. Will continue to follow and reassess as pt needs, intake, and status change. Heidi Abernathy, MS, RD, LD
--- NOTE | 2019-11-16 13:45 | NUR ---
Important Message from Medicare presented, reviewed, signed and placed in patient chart. Patient voiced no intention to appeal and deny any needs or further questions at this time. Patient reports he has a daughter that is very supportive who checks on him and he calls her if he needs anything.
[2019-11-16 15:56] VITALS: BP 127/65
--- NOTE | 2019-11-16 16:12 | NUR ---
CM/SS visited with patient for social service consult. Plan: Patient will discharge to home today 11/15. Home: The patient lives at home at alone. He does have 2 steps into his home but states they are not high. He reports that he does have 3 children that live close but he doesn't ask for help. The patient reports that they would help if he needed it. According to the patient, he believes that his house is safe to return to. He states he is going to work harder on getting it cleaned up. CM/SS offered to assist with setting up homemaker services through [facility] [employer] [facility]. He declined at this time. Equipment: Patient has a 4 wheeled walker with seat. He is unsure of where he purchased this from. Caregivers/Home Health: None at this time. The patient reports that he wants to take care of his home his self but is willing to start accepting help from his family and neighbors. He stated that his daughter is becoming the "mother" and is going to help him get things cleaned up.
[2019-11-16 16:54] VITALS: BP 127/65
[2019-11-16] MEDS ORDERED: RIVAROXABAN 20 MG TABLET (XARELTO) PO SCH (17:00)
--- NOTE | 2019-11-16 17:36 | Cardiology Progress Note ---
Cardiology SOAP Progress Note Objective: I&O/Vital Signs 11/16/19 11/16/19 11/16/19 11/16/19 07:45 09:00 15:56 16:54 Temp 35.9 36.6 36.6 Pulse 63 60 60 Resp B/P (MAP) 116/58 (77) 127/65 (85) 127/65 Pulse Ox 100 100 98 98 O2 Delivery Room Air Room Air Room Air Room Air 11/16/19 00:00 Intake Total 2440 ml Balance 2440 ml Weight (Pounds): 242 Weight (Ounces): 0.0 Weight (Calculated Kilograms): 109.377432 Skin: cool, pallor; No ulcerations; other (abrasions as above) Results/Procedures: Labs Laboratory Tests 11/16/19 05:02: White Blood Count 5.3, Red Blood Count 3.33L, Hemoglobin 10.0L, Hematocrit 29L, Mean Corpuscular Volume 87, Mean Corpuscular Hemoglobin 30, Mean Corpuscular Hemoglobin Concent 35, Red Cell Distribution Width 14.5, Platelet Count 113L, Mean Platelet Volume 10.6H, Neutrophils (%) (Auto) 58, Lymphocytes (%) (Auto) 35, Monocytes (%) (Auto) 6, Eosinophils (%) (Auto) 2, Basophils (%) (Auto) 0, Neutrophils # (Auto) 3.1, Lymphocytes # (Auto) 1.8, Monocytes # (Auto) 0.3, Eosinophils # (Auto) 0.1, Basophils # (Auto) 0.0, Sodium Level 138, Potassium Level 4.6, Chloride Level 113H, Carbon Dioxide Level 18L, Anion Gap 7, Blood Urea Nitrogen 26H, Creatinine 1.34H, Estimat Glomerular Filtration Rate 53, BUN/Creatinine Ratio 19, Glucose Level 83, Calcium Level 7.9L, Corrected Calcium 8.4L, Total Bilirubin 0.5, Aspartate Amino Transf (AST/SGOT) 57H, Alanine Aminotransferase (ALT/SGPT) 58H, Alkaline Phosphatase 53, Total Protein 5.9L, Albumin 3.4 Microbiology 11/13/19 MRSA Screen - Final, Complete MRSA not isolated 11/13/19 Blood Culture - Preliminary, Resulted Probable Coag Negative Staph See Comments 11/13/19 Urine Culture - Final, Complete NO GROWTH A/P: Thank you for your consultation. Please call me if you have any questions. Anny Khan MD, FACP, FACC, FSCAI, FHRS, CCDS Interventional Cardiology Cardiac Electrophysiology Vascular Medicine and Endovascular Interventions Focused Exam Lactate Level 11/13/19 18:25: Lactic Acid Level 1.07 Christian KHAN MD Nov 16, 2019 17:36
== END 2019-11-16 16:54 | disposition home or self-care (01) | DRG 682 ==
LOC: EDUNIT# 18:05 → ER 18:08 → ICU 22:19 → 4TH 11-15 12:40
PROVIDERS: ADMIT Internal Medicine; ATTEND Internal Medicine
DX: N17.9 Acute kidney failure, unspecified (principal); I21.A1 Myocardial infarction type 2; E87.2 Acidosis; Z91.81 History of falling; I95.1 Orthostatic hypotension; R19.7 Diarrhea, unspecified; R19.5 Other fecal abnormalities; E87.5 Hyperkalemia; D69.6 Thrombocytopenia, unspecified; E11.9 Type 2 diabetes mellitus without complications; I11.0 Hypertensive heart disease with heart failure; E78.00 Pure hypercholesterolemia, unspecified; E03.9 Hypothyroidism, unspecified; C67.9 Malignant neoplasm of bladder, unspecified; F32.9 Major depressive disorder, single episode, unspecified; I25.10 Atherosclerotic heart disease of native coronary artery without angina pectoris; E78.5 Hyperlipidemia, unspecified; I65.23 Occlusion and stenosis of bilateral carotid arteries; Z79.4 Long term (current) use of insulin; Z79.01 Long term (current) use of anticoagulants; Z95.1 Presence of aortocoronary bypass graft; Z86.718 Personal history of other venous thrombosis and embolism; Z86.711 Personal history of pulmonary embolism; Z23 Encounter for immunization
CPT/HCPCS: 36415; 51702; 70450; 70486; 71045; 72125; 80048; 80053; 81000; 82274; 82436; 82962; 83605; 83735; 84100; 84133; 84300; 84484; 85025; 85610; 85730; 87040; 87081; 87088; 90662; 93005; 93306

== ENCOUNTER 2020-01-01 05:31 | Outpatient (RCR) | payer MEDICARE, OTHER ==
[~2020-01-01] VITALS: Ht 180.3 cm; Wt 102.7 kg
[~2020-01-01 05:31] MED LIST changes: +INSU100I29 SQ; +MULT-1136 PO; +NF-SODBICA PO
== END 2020-01-01 12:02 | disposition home or self-care (01) ==
LOC: PREOP 05:31
PROVIDERS: ATTEND Surgery
DX: Z01.812 Encounter for preprocedural laboratory examination (principal); Z20.828 Contact with and (suspected) exposure to other viral communicable diseases
CPT/HCPCS: 87635

== ENCOUNTER 2020-01-05 09:35 | Day surgery (SDC) | payer MEDICARE, OTHER ==
[~2020-01-05] VITALS: Ht 180.3 cm; Wt 102.7 kg
[2020-01-05] MEDS ORDERED: LACTATED RINGERS 1,000 ML IV PRN (09:45)
[2020-01-05] MEDS ORDERED: LACTATED RINGERS 1,000 ML IV ONE (09:46)
[2020-01-05 10:06] VITALS: BP 125/62
[2020-01-05] MEDS ORDERED: MIDAZOLAM 2 MG/2 ML (VERSED) VIAL ONE (10:56)
[2020-01-05] MEDS ORDERED: PROPOFOL INJECTION 50 ML IV ONE (10:56)
[2020-01-05 11:45] VITALS: BP 118/60
[2020-01-05 11:50] VITALS: BP 128/68
--- NOTE | 2020-01-05 12:02 | Progress Note-Post Operative ---
Post-Operative Progess Note Surgeon (s)/Planer Tailer (s) Surgeon BEN JEFFREY DO Planer Tailer: na Pre-Operative Diagnosis screening colonoscopy Post-Operative Diagnosis colon polyps Procedure & Operative Findings Date of Procedure 01/05/20 Procedure Performed/Findings colonoscopy c hot bx polypectomy x 4 and snare polypectomy x 1 Anesthesia Type per c s s representative Estimated Blood Loss Estimated blood loss (mL): none Specimens/Packing Specimens Removed colon polyps BEN JEFFREY DO Jan 05, 2020 12:02
[2020-01-05 12:20] VITALS: BP 132/75
[2020-01-05 12:40] VITALS: BP 132/75
--- NOTE | 2020-01-05 12:43 | Anesthesia-General Post-Op ---
MAC Patient Condition Mental Status/LOC: Same as Preop Cardiovascular: Satisfactory Nausea/Vomiting: Absent Respiratory: Satisfactory Pain: Controlled Complications: Absent Post Op Complications Complications None Follow Up Care/Instructions Patient Instructions None needed. Anesthesiology Discharge Order Discharge Order Patient is doing well, no complaints, stable vital signs, no apparent adverse anesthesia problems. No complications reported per nursing. JEANE MCNAMARA CRNA Jan 05, 2020 12:43
--- NOTE | 2020-01-05 18:12 | OPERATIVE REPORT ---
DATE OF SERVICE: 01/05/2020 PREOPERATIVE DIAGNOSIS: Screening colonoscopy. POSTOPERATIVE DIAGNOSIS: Colon polyps. PROCEDURE: Colonoscopy with hot biopsy polypectomy x5 and snare polypectomy x1. SURGEON: Ben Green DO ANESTHESIA: Per CLERICAL INVESTIGATOR. ESTIMATED BLOOD LOSS: None. COMPLICATIONS: None. INDICATIONS: The patient is a 74-year-old male needing screening colonoscopy. He understands risks and benefits of procedure and wished to proceed with procedure. Consent was signed in the chart. DESCRIPTION OF PROCEDURE: The patient was taken to the endoscopy suite, placed in left lateral recumbent position. Timeout was performed. Digital rectal exam was performed. There were no palpable polyps, masses or ulcerations. Scope was inserted in the rectum and advanced all the way to cecum with minimal difficulty. Prep was adequate. Scope was slowly retracted back. There were no polyps, masses or ulcerations in the cecum, ascending colon and transverse colon. Four small polyps were present, which hot biopsy polypectomy was performed. Scope was then continuously retracted back. No polyps, masses or ulcerations in the descending colon. In the sigmoid colon, there was a large polyp, which snare polypectomy was performed. suctioned. Scope was removed and scope was reinserted and advanced all the way back to the location. Another small polyp was present at this location, which hot biopsy polypectomy was performed. Scope was then slowly retracted back. There were no polyps, masses or ulcerations in the remainder of the sigmoid colon. Once in the rectum, scope was retroflexed. At the anorectal junction, there is a lipomatous appearing small growth which the scope was then returned to its normal position, slowly withdrawn until completely removed. RECOMMENDATIONS: The patient will need repeat colonoscopy in 3 to 5 years. Any issues before that be seen at that time. At the anorectal junction, there was a lipomatous type mass, would consider excision for a biopsy of this area. The patient will follow up in the office in 2 weeks to discuss pathology results. Job ID: [id number] DocumentID: [id number] Dictated Date: 01/05/2020 12:05:47 Statistical Technician Date: 01/05/2020 18:12:27 Dictated By: EBN GREEN DO
== END 2020-01-05 12:40 | disposition home or self-care (01) ==
LOC: ENDO 09:35
PROVIDERS: ATTEND Surgery
DX: Z12.11 Encounter for screening for malignant neoplasm of colon (principal); D12.3 Benign neoplasm of transverse colon; D12.5 Benign neoplasm of sigmoid colon; I10 Essential (primary) hypertension; F32.9 Major depressive disorder, single episode, unspecified; E11.9 Type 2 diabetes mellitus without complications; E03.9 Hypothyroidism, unspecified; I25.10 Atherosclerotic heart disease of native coronary artery without angina pectoris; E78.2 Mixed hyperlipidemia; R94.39 Abnormal result of other cardiovascular function study; Z79.01 Long term (current) use of anticoagulants; Z79.82 Long term (current) use of aspirin; Z79.899 Other long term (current) drug therapy; Z87.442 Personal history of urinary calculi; Z95.5 Presence of coronary angioplasty implant and graft; Z95.1 Presence of aortocoronary bypass graft; Z80.0 Family history of malignant neoplasm of digestive organs
CPT/HCPCS: 82962; 88305

== ENCOUNTER → 2020-07-12 | Outpatient (CLI) | payer MEDICARE, OTHER ==
[~2020-07-12] VITALS: Ht 178 cm; Wt 99.5 kg
[~2020-07-12] MED LIST changes: +ATOR80TA76 PO; -CIPR500T4 PO; +CIPR500T5 PO; +FENO145T26 PO; -LISI-552 PO; +LISI20TA26 PO; +LISI40TA9 PO; +RIVA10TA PO; +[UNRECOGNIZED DRUG - CODE] PO
== END | disposition home or self-care (01) ==
LOC: PREOP 05:43
PROVIDERS: ATTEND Surgery
DX: Z01.818 Encounter for other preprocedural examination (principal)

== ENCOUNTER 2020-07-19 12:02 | Day surgery (SDC) | payer MEDICARE, OTHER ==
[~2020-07-19] VITALS: Ht 178 cm; Wt 99.5 kg
[2020-07-19] VITALS (8 sets, daily range): BP systolic 83–105; BP diastolic 47–58
[2020-07-19] MEDS ORDERED: LACTATED RINGERS 1,000 ML IV STA (12:05)
[2020-07-19] MEDS ORDERED: LACTATED RINGERS 1,000 ML IV ONE (12:08)
--- NOTE | 2020-07-19 13:09 | Progress Note-Pre Operative ---
Pre-Operative Progress Note H&P Reviewed The H&P was reviewed, patient examined and no changes noted. Date Seen by Provider: July 19, 2020 Time Seen by Provider: 13:09 Date H&P Reviewed: July 19, 2020 Time H&P Reviewed: 13:09 Pre-Operative Diagnosis: history of polyps BEN JEFFREY DO July 19, 2020 13:09
[2020-07-19] MEDS ORDERED: MIDAZOLAM 2 MG/2 ML (VERSED) VIAL ONE (13:30)
[2020-07-19] MEDS ORDERED: PROPOFOL INJECTION 50 ML IV ONE (13:30)
--- NOTE | 2020-07-19 14:02 | Anesthesia-General Post-Op ---
MAC Patient Condition Mental Status/LOC: Same as Preop Cardiovascular: Satisfactory Nausea/Vomiting: Absent Respiratory: Satisfactory Pain: Controlled Complications: Absent Post Op Complications Complications None Follow Up Care/Instructions Patient Instructions None needed. Anesthesiology Discharge Order Discharge Order Patient is doing well, no complaints, stable vital signs, no apparent adverse anesthesia problems. No complications reported per nursing. KAITLIN TOVAR CRNA July 19, 2020 14:02
--- NOTE | 2020-07-19 15:02 | OPERATIVE REPORT ---
DATE OF SERVICE: 07/19/2020 PREOPERATIVE DIAGNOSIS: History of polyps. POSTOPERATIVE DIAGNOSIS: Anorectal mass, appears to be lipomatous. PROCEDURE PERFORMED: Colonoscopy. SURGEON: Ben Green DO. ANESTHESIA: Per ELECTRICIAN UNDERGROUND. ESTIMATED BLOOD LOSS: None. COMPLICATIONS: None. INDICATIONS FOR PROCEDURE: The patient is a 74-year-old male with a history of polyps. He understands the risks and benefits of procedure and wished to proceed with the procedure. Consent was signed in the chart. DESCRIPTION OF PROCEDURE: The patient was taken to the endoscopy suite and placed in a left lateral recumbent position. Timeout was performed. Digital rectal exam was performed noting a small palpable mass. Scope was inserted and advanced all the way to cecum with minimal difficulty. Prep was adequate. Scope was slowly retracted back. No polyps, masses or ulcerations within the cecum, ascending, transverse, descending and sigmoid colon. Once in the rectum, scope was retroflexed noting the anorectal mass that appears to be a lipoma, still may be slightly larger. Scope was returned to its normal position, slowly withdrawn until completely removed. The patient tolerated the procedure well without any complications and taken to the recovery room in stable condition. RECOMMENDATIONS: The anorectal mass, which appears to be lipomatous, has a broad base, which I do not feel comfortable doing a snare excision. We discussed doing an exam under anesthesia and a local resection of the mass in the OR. This is to obtain final pathology. The patient will follow up in two weeks to discuss. Job ID: [id number] DocumentID: [id number] Dictated Date: 07/19/2020 14:10:24 Delinquency Prevention Social Worker Date: 07/19/2020 15:02:06 Dictated By: BEN GREEN DO
== END 2020-07-19 15:10 | disposition home or self-care (01) ==
LOC: ENDO 12:02
PROVIDERS: ATTEND Surgery
DX: K62.89 Other specified diseases of anus and rectum (principal); I10 Essential (primary) hypertension; I25.10 Atherosclerotic heart disease of native coronary artery without angina pectoris; E11.9 Type 2 diabetes mellitus without complications; E66.9 Obesity, unspecified; E78.5 Hyperlipidemia, unspecified; F32.9 Major depressive disorder, single episode, unspecified; Z68.31 Body mass index [BMI] 31.0-31.9, adult; Z79.890 Hormone replacement therapy; Z86.010 Personal history of colon polyps; Z95.1 Presence of aortocoronary bypass graft; Z79.899 Other long term (current) drug therapy; Z79.4 Long term (current) use of insulin; Z80.9 Family history of malignant neoplasm, unspecified
CPT/HCPCS: 82947

== ENCOUNTER 2020-08-15 05:42 | Outpatient (CLI) | payer MEDICARE, OTHER ==
[~2020-08-15] VITALS: Ht 179.1 cm; Wt 100.7 kg
[2020-08-15] MEDS ORDERED: FURO80TA3 PO (12:15)
[2020-08-15] MEDS ORDERED: INSU100V5 SQ (12:15)
== END 2020-08-15 12:35 | disposition home or self-care (01) ==
LOC: PREOP 05:42
PROVIDERS: ATTEND Surgery
DX: Z01.818 Encounter for other preprocedural examination (principal)

== ENCOUNTER 2020-08-18 08:25 | Day surgery (SDC) | payer MEDICARE, OTHER ==
[~2020-08-18] VITALS: Ht 179.1 cm; Wt 100.7 kg
[2020-08-18] VITALS (11 sets, daily range): BP systolic 111–146; BP diastolic 56–66
[~2020-08-18 08:25] MED LIST changes: +ERGO1250 PO; +FURO80TA3 PO
[2020-08-18] MEDS ORDERED: FLEET ENEMA ADULT 1 EA BTL ONE (08:44)
[2020-08-18] MEDS ORDERED: LIDOCAINE/EPI 1%-1:100,000 (XYLOCAINE) 20ML ONE (08:45)
[2020-08-18] MEDS ORDERED: FLEET ENEMA ADULT 1 EA BTL PR ONE (08:45)
[2020-08-18] MEDS ORDERED: LACTATED RINGERS 1,000 ML IV PRN (08:45)
--- NOTE | 2020-08-18 09:23 | Progress Note-Pre Operative ---
Pre-Operative Progress Note H&P Reviewed The H&P was reviewed, patient examined and no changes noted. Date Seen by Provider: Aug 18, 2020 Time Seen by Provider: : Date H&P Reviewed: Aug 18, 2020 Time H&P Reviewed: :23 Pre-Operative Diagnosis: anorectal mass BEN JEFFREY DO Aug 18, 2020 09:23
[2020-08-18] MEDS ORDERED: SEVOFLURANE (ULTANE) 15 ML INHAL SOLN ONE ×2 (09:40→11:18)
[2020-08-18] MEDS ORDERED: proPOfol 200 MG/20 ML (DIPRIVAN) VIAL IV ONE ×2 (09:40→10:53)
[2020-08-18] MEDS ORDERED: LIDOCAINE PF 2% 5 ML (XYLOCAINE) VIAL ONE (09:40)
[2020-08-18] MEDS ORDERED: ONDANSETRON 4 MG/2 ML (SDV) Z0FRAN ONE (09:40)
[2020-08-18] MEDS ORDERED: fentaNYL INJ 100 MCG/2 ML AMP ONE (09:40)
[2020-08-18] MEDS ORDERED: MIDAZOLAM 2 MG/2 ML (VERSED) VIAL ONE (09:41)
--- NOTE | 2020-08-18 11:11 | Progress Note-Post Operative ---
Post-Operative Progess Note Surgeon (s)/Transition Coach (s) Surgeon BEN EJFFREY DO Transition Coach: na Pre-Operative Diagnosis anorectal mass Post-Operative Diagnosis same Procedure & Operative Findings Date of Procedure 08/18/20 Procedure Performed/Findings excision anorectal mass1.4x1.2 cm Anesthesia Type general Estimated Blood Loss Estimated blood loss (mL): minimal Specimens/Packing Specimens Removed anorectal mass BEN JEFFREY DO Aug 18, 2020 11:11
[2020-08-18] MEDS ORDERED: DOCU-143 PO (11:12)
[2020-08-18] MEDS ORDERED: ACHD5005 PO (11:12)
[2020-08-18] MEDS ORDERED: ONDANSETRON 4 MG/2 ML (SDV) Z0FRAN IVP PRN (11:15)
[2020-08-18] MEDS ORDERED: morphine INJ 10 MG/ML 1ML (SYR OR VIAL) IVP ONE (11:15)
[2020-08-18] MEDS ORDERED: MEPERIDINE (DEMEROL) INJ 50 MG/ML IVP ONE (11:15)
--- NOTE | 2020-08-18 11:16 | Discharge Inst-Simple/Standard ---
Discharge Inst-Standard Discharge Medications New, Converted or Re-Newed RX: Transmitted to Pharmacy Patient Instructions/Follow Up Plan of Care/Instructions/FU: 2-3 weeks Peter Activity as Tolerated: No Discharge Diet: Regular Diet Other Inst to Patient Follow up Appt: Make appointment for 2-3 week. Instructions: No lifting greater than 10 pounds. No strenuous activity. May shower in 24 hours, no tub bath or soaking. Use incentive spirometer at home as directed. No Smoking Skin/Wound Care: Keep stools soft. Keep bottom clean and dry. Symptoms to Report: Appetite Changes, Extremity Discoloration, Numbness/Tingling, Swelling Increased, Bleeding Excessive, Eyesight Changes, Pain Increased, Urine Color Change, Constipation(Persistent), Fever over 101 degree F, Pain/Pressure in chest, Urinating Difficulty, Cough Up/Vomit Blood, Heart Beat Irreg/Pounding, Pain/Pressure in jaw, Vaginal Bleeding Increase, Cramps in feet or legs, Lightheadedness, Pain/Pressure in shoulder, Diarrhea(Persistent), Memory Changes Suddenly, Questions/Concerns, Weight gain consecutive days, Dizziness/Fainting, Nausea/Vomiting, Shortness of Breath, Weight gain over 2 pounds If questions or concerns contact your physician Or seek help at emergency department. BEN JEFFREY DO Aug 18, 2020 11:15
--- NOTE | 2020-08-18 12:54 | Anesthesia-General Post-Op ---
General Patient Condition Mental Status/LOC: Same as Preop Cardiovascular: Satisfactory Nausea/Vomiting: Absent Respiratory: Satisfactory Pain: Controlled Complications: Absent Post Op Complications Complications None Follow Up Care/Instructions Patient Instructions None needed. Anesthesia/Patient Condition Patient Condition Patient is doing well, no complaints, stable vital signs, no apparent adverse anesthesia problems. No complications reported per nursing. KAITLIN TOVAR CRNA Aug 18, 2020 12:54
--- NOTE | 2020-08-18 19:11 | OPERATIVE REPORT ---
DATE OF SERVICE: 08/18/2020 PREOPERATIVE DIAGNOSIS: Anorectal mass. POSTOPERATIVE DIAGNOSIS: Anorectal mass. PROCEDURE PERFORMED: Excision of anorectal mass 1.4 x 1.2 cm. SURGEON: Ben Green DO ANESTHESIA: General. ESTIMATED BLOOD LOSS: Minimal. COMPLICATIONS: None. INDICATIONS FOR PROCEDURE: The patient is a 74-year-old male with an anorectal mass, which had endoscopy and we discussed excision to get pathological diagnosis. The patient understands risks and benefits of the procedure and wished to proceed with the procedure. Consent was signed in the chart. DESCRIPTION OF PROCEDURE: The patient was taken to the operating suite, placed in lithotomy position, prepped and draped in sterile fashion. Timeout was performed. A digital rectal exam was performed noting the mass. A Dittmar retractor was inserted and the mass was visualized. It was able to be grasped and slowly retracted and a Harmonic was used to excise the mass, which was within the mucosal layer. The overall dimension of it being removed was 1.4 x 1.2 cm. Hemostasis was achieved. The Dittmar retractor was then removed. Internal hemorrhoids noted as well. The patient tolerated the procedure well without any complications. He was taken to the recovery room in stable condition. Job ID: [id number] DocumentID: [id number] Dictated Date: 08/18/2020 15:13:08 Anode Adjuster Date: 08/18/2020 19:09:42 Dictated By: BEN GREEN DO
== END 2020-08-18 15:15 | disposition home or self-care (01) ==
LOC: SDC 08:25
PROVIDERS: ATTEND Surgery
DX: D17.79 Benign lipomatous neoplasm of other sites (principal); I10 Essential (primary) hypertension; I25.10 Atherosclerotic heart disease of native coronary artery without angina pectoris; F41.9 Anxiety disorder, unspecified; F32.9 Major depressive disorder, single episode, unspecified; E11.9 Type 2 diabetes mellitus without complications; Z79.899 Other long term (current) drug therapy; K42.9 Umbilical hernia without obstruction or gangrene; E78.2 Mixed hyperlipidemia; Z79.01 Long term (current) use of anticoagulants; Z79.02 Long term (current) use of antithrombotics/antiplatelets; Z79.4 Long term (current) use of insulin; Z79.82 Long term (current) use of aspirin; Z79.890 Hormone replacement therapy
CPT/HCPCS: 82947; 87081

== ENCOUNTER 2021-07-18 12:20 | Emergency (ER) | payer OTHER ==
[~2021-07-18] VITALS: Ht 178 cm; Wt 94.8 kg
[~2021-07-18 12:20] MED LIST changes: +ACHD5005 PO; +DOCU-143 PO
[2021-07-18] MEDS ORDERED: NS IV 1000 ML 1,000 ML IV ONE ×2 (12:45→14:45)
--- NOTE | 2021-07-18 12:57 | ED General ---
General Chief Complaint: General Problems/Pain Stated Complaint: ABNORMAL LABS Source of Information: Patient Exam Limitations: No Limitations History of Present Illness Date Seen by Provider: July 18, 2021 Time Seen by Provider: 12:42 Initial Comments This is a well-appearing 75-year-old male who presented to the ER per the [facility] for concerning renal labs. States that he was evaluated for routine follow- up today and he received a phone call instructing him to go to the emergency department because his renal function had declined. Upon arrival he is awake and alert, he is hypotensive with systolic blood pressure mid 80s''s. Only physical complaint is intermittent cough. He denies fever, chills, chest pain, shortness of breath, nausea, vomiting, abdominal pain, dysuria, hematuria, diarrhea, constipation. States he has lost about 30 pounds in one month. Has been intentionally trying to lose weight with diet, exercise, and fasting. Denies taking any over the counter supplements. Allergies and Home Medications Allergies Coded Allergies: Milo Known Allergies (Verified Allergy, Unknown, 05/18/05) Patient Home Medication List Home Medication List Reviewed: Yes Aspirin (Aspirin EC) 81 Mg Tablet.dr, 81 MG PO DAILY, (Reported) Entered as Reported by: ALINA TALAMANTES on 03/15/15 0935 Atorvastatin Calcium (Atorvastatin Calcium) 80 Mg Tablet, 80 MG PO HS, (Reported) Entered as Reported by: GERTRUDE SMART on 07/14/20 1108 Calcium Carbonate (Calcium Carbonate) 650 Mg Tablet, 650 MG PO DAILY, (Reported) Entered as Reported by: GERTRUDE SMART on 07/14/20 1108 Docusate Sodium (Colace) 100 Mg Capsule, 100 MG PO BID Prescribed by: BEN JEFFREY on 08/18/20 1112 Escitalopram Oxalate (Lexapro) 20 Mg Tablet, 20 MG PO DAILY, (Reported) Entered as Reported by: LUZ MARINA GODOY on 05/25/15 1044 Fenofibrate Nanocrystallized (Fenofibrate) 145 Mg Tablet, 145 MG PO DAILY, (Reported) Entered as Reported by: GERTRUDE SMART on 07/14/20 1108 Furosemide (Furosemide) 80 Mg Tablet, 80 MG PO DAILY, (Reported) Entered as Reported by: JOSE GUADALUPE JEAN on 08/15/20 1215 Hydrocodone/Acetaminophen (Hydrocodone-Acetamin 5-325 mg) 1 Each Tablet, 1 EACH PO Q4H PRN for PAIN-MODERATE (5-7) Prescribed by: BEN JEFFREY on 08/18/20 1113 Insulin Determir (Levemir) 1,000 Units/10 Ml Soln, 10 UNITS SQ DAILY, (Reported) Entered as Reported by: JOSE GUADALUPE JEAN on 08/15/20 1215 Levothyroxine Sodium (Levothyroxine Sodium) 50 Mcg Tablet, 50 MCG PO DAILY, (Reported) Entered as Reported by: ALINA TALAMANTES on 03/15/15 0930 Lisinopril (Lisinopril) 40 Mg Tablet, 40 MG PO DAILY, (Reported) Entered as Reported by: GERTRUDE SMART on 07/14/20 1108 Melatonin (Melatonin) 5 Mg Capsule, 5 MG PO HS, (Reported) Entered as Reported by: ALEJANDRINA ARCHER on 08/26/17 0745 [employer] 3 Polyunsat Fatty Acids (Fish Oil 1,000 mg Capsule) 1,000 Mg Cap, 1,000 MG PO DAILY, (Reported) Entered as Reported by: LUZ MARINA GODOY on 05/25/15 1044 Rivaroxaban (Xarelto) 10 Mg Tablet, 10 MG PO HS, (Reported) Entered as Reported by: GERTRUDE SMART on 07/14/20 1108 Review of Systems Review of Systems Constitutional: weight loss (Intentional ) EENTM: no symptoms reported Respiratory: cough; No dyspnea on exertion, No hemoptysis, No short of breath Cardiovascular: no symptoms reported Gastrointestinal: no symptoms reported Genitourinary: No decreased output, No dysuria, No frequency, No hematuria, No incontinence Musculoskeletal: no symptoms reported Skin: no symptoms reported Psychiatric/Neurological: No Symptoms Reported Hematologic/Lymphatic: No Symptoms Reported Immunological/Allergic: no symptoms reported Past Pizoqet-Glukmk-Hwzmcz Hx Immunizations Up To Date Tetanus Booster (TDap): More than 5yrs Seasonal Allergies Seasonal Allergies: No Past Medical History Surgeries: Yes (ESWL, ing hernia, colonoscopy) Abdominal, CABG, Renal, Vasectomy Respiratory: No Currently Using CPAP: No Currently Using BIPAP: No Cardiac: Yes (triple bypass) Chronic Edema/Swelling, Deep Vein Thrombosis, High Cholesterol, Hypertension Neurological: No Reproductive Disorders: No Genitourinary: Yes Kidney Stones Gastrointestinal: Yes Hemorrhoids Musculoskeletal: Yes Arthritis Endocrine: Yes Diabetes, Insulin dep, Hypothyroidsim HEENT: No Hearing Impairment: Hard of Hearing Cancer: No Bladder Psychosocial: Yes Anxiety, Depression Integumentary: Yes (cellulitis) Recent Skin Changes Blood Disorders: No Adverse Reaction/Blood Tranf: No Family Medical History No Pertinent Family Hx Physical Exam-Suspected Sepsis Physical Exam Vital Signs Vital Signs - First Documented 07/18/21 12:29 Temp 35.7 Pulse 54 Resp 20 B/P (MAP) 102/49 (66) Pulse Ox 98 Capillary Refill : Height, Weight, BMI Height: 5'11.00" Weight: 242lbs. 0.0oz. 109.008800he; 31.39 BMI Method: General Appearance: No Apparent Distress, WD/WN Eyes: Bilateral Eye Normal Inspection, Bilateral Eye PERRL, Bilateral Eye EOMI HEENT: PERRL/EOMI, Normal ENT Inspection, Pharynx Normal, Moist Mucous Membranes Neck: Full Range of Motion, Normal Inspection, Non Tender, Supple Respiratory: Lungs Clear, Normal Breath Sounds, No Accessory Muscle Use, No Respiratory Distress Cardiovascular: Regular Rate, Rhythm, No Murmur, Normal Peripheral Pulses Gastrointestinal: Normal Bowel Sounds, No Organomegaly, No Pulsatile Mass, Non Tender, Soft Back: Normal Inspection, No Vertebral Tenderness Extremity: Normal Capillary Refill, Normal Range of Motion, Non Tender Neurologic/Psychiatric: Alert, Oriented x3, No Motor/Sensory Deficits, Normal 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, 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 Norm as Tested Skin: normal color, warm/dry Lymphatic: No Adenopathy Focused Exam Lactate Level 07/18/21 12:49: Lactic Acid Level 0.57 Lactic Acid Level Laboratory Tests Test 07/18/21 12:49 Lactic Acid Level 0.57 MMOL/L (0.50-2.00) Progress/Results/Core Measures Suspected Sepsis SIRS Temperature: Pulse: Respiratory Rate: Laboratory Tests 07/18/21 12:49: White Blood Count 5.7 Blood Pressure / Mean: 07/18/21 12:49: Lactic Acid Level 0.57 Laboratory Tests 07/18/21 12:49: Creatinine 3.55H, INR Comment 1.0, Platelet Count 162, Total Bilirubin 0.6 Results/Orders Lab Results Laboratory Tests Test 07/18/21 12:49 07/18/21 14:01 Range/Units White Blood Count 5.7 4.3-11.0 10^3/uL Red Blood Count 4.55 4.30-5.52 10^6/uL Hemoglobin 13.5 13.3-17.7 g/dL Hematocrit 41 40-54 % Mean Corpuscular Volume 90 80-99 fL Mean Corpuscular Hemoglobin 30 25-34 pg Mean Corpuscular Hemoglobin Concent 33 32-36 g/dL Red Cell Distribution Width 14.1 10.0-14.5 % Platelet Count 162 130-400 10^3/uL Mean Platelet Volume 11.0 9.0-12.2 fL Immature Granulocyte % (Auto) 0 % Neutrophils (%) (Auto) 68 42-75 % Lymphocytes (%) (Auto) 25 12-44 % Monocytes (%) (Auto) 5 0-12 % Eosinophils (%) (Auto) 2 0-10 % Basophils (%) (Auto) 1 0-10 % Neutrophils # (Auto) 3.9 1.8-7.8 10^3/uL Lymphocytes # (Auto) 1.4 1.0-4.0 10^3/uL Monocytes # (Auto) 0.3 0.0-1.0 10^3/uL Eosinophils # (Auto) 0.1 0.0-0.3 10^3/uL Basophils # (Auto) 0.0 0.0-0.1 10^3/uL Immature Granulocyte # (Auto) 0.0 0.0-0.1 10^3/uL Prothrombin Time 13.4 12.2-14.7 SEC INR Comment 1.0 0.8-1.4 Activated Partial Thromboplast Time 27 24-35 SEC Sodium Level 135 135-145 MMOL/L Potassium Level 6.3 H 3.6-5.0 MMOL/L Chloride Level 108 H 98-107 MMOL/L Carbon Dioxide Level 17 L 21-32 MMOL/L Anion Gap 10 5-14 MMOL/L Blood Urea Nitrogen 91 H 7-18 MG/DL Creatinine 3.55 H 0.60-1.30 MG/DL Estimat Glomerular Filtration Rate 17 BUN/Creatinine Ratio 26 Glucose Level 125 H 70-105 MG/DL Lactic Acid Level 0.57 0.50-2.00 MMOL/L Calcium Level 9.7 8.5-10.1 MG/DL Corrected Calcium 8.5-10.1 MG/DL Total Bilirubin 0.6 0.1-1.0 MG/DL Aspartate Amino Transf (AST/SGOT) 22 5-34 U/L Alanine Aminotransferase (ALT/SGPT) 19 0-55 U/L Alkaline Phosphatase 39 L 40-136 U/L Troponin I < 0.028 <0.028 NG/ML Total Protein 8.0 6.4-8.2 GM/DL Albumin 4.7 H 3.2-4.5 GM/DL Procalcitonin 0.04 <0.10 NG/ML Urine Color YELLOW Urine Clarity CLEAR Urine pH 5.5 5-9 Urine Specific [place] 1.015 L 1.016-1.022 Urine Protein NEGATIVE NEGATIVE Urine Glucose (UA) NEGATIVE NEGATIVE Urine Ketones NEGATIVE NEGATIVE Urine Nitrite NEGATIVE NEGATIVE Urine Bilirubin NEGATIVE NEGATIVE Urine Urobilinogen 0.2 < = 1.0 MG/DL Urine Leukocyte Esterase NEGATIVE NEGATIVE Urine RBC (Auto) NEGATIVE NEGATIVE Urine RBC RARE /HPF Urine WBC RARE /HPF Urine Squamous Epithelial Cells RARE /HPF Urine Crystals NONE /LPF Urine Bacteria NEGATIVE /HPF Urine Casts PRESENT /LPF Urine Hyaline Casts 2-5 H /LPF Urine Mucus NEGATIVE /LPF Urine Culture Indicated NO My Orders Orders - YONATAN JACKSON CASTING MACHINE OPERATOR HELPER Cbc With Automated Diff (07/18/21 12:35) Comprehensive Metabolic Panel (07/18/21 12:35) Ed Iv/Invasive Line Start (07/18/21 12:35) Ns Iv 1000 Ml (Sodium Chloride 0.9%) (07/18/21 12:45) Blood Culture (07/18/21 12:54) Sputum Culture (07/18/21 12:54) Urinalysis (07/18/21 12:54) Urine Culture (07/18/21 12:54) Protime With Inr (07/18/21 12:54) Partial Thromboplastin Time (07/18/21 12:54) Chest 1 View, Ap/Pa Only (07/18/21 12:54) Troponin I Shellie (07/18/21 12:54) Vital Signs Adult Sepsis Patie Q15M (07/18/21 12:54) O2 (07/18/21 12:54) Remove Rings In Anticipation O (07/18/21 12:54) Lactic Acid Analyzer (07/18/21 12:54) Procalcitonin (Pct) (07/18/21 12:54) Ekg Tracing (07/18/21 13:46) Ns Iv 1000 Ml (Sodium Chloride 0.9%) (07/18/21 14:45) Medications Given in ED Current Medications Medications Dose Ordered Sig/Tiffanie Route Start Time Stop Time Status Last Admin Dose Admin Sodium Chloride 1,000 ml @ 999 mls/hr ONCE ONCE IV 07/18/21 12:45 07/18/21 13:45 DC 07/18/21 12:55 999 MLS/HR Sodium Chloride 1,000 ml @ 999 mls/hr Q1H ONCE IV 07/18/21 14:45 07/18/21 15:45 DC 07/18/21 14:56 999 MLS/HR Vital Signs/I&O 07/18/21 12:29 Temp 35.7 Pulse 54 Resp 20 B/P (MAP) 102/49 (66) Pulse Ox 98 Capillary Refill : Progress Note : Progress Note Patient examined and in no acute distress. His only complaint is a cough at this time. Orders placed for sepsis work-up as he is hypotensive upon arrival. His heart rate is in the upper 40s to mid 50s, he does take a beta-katherine daily. His CBC is relatively unremarkable, his CMP does show hyperkalemia, worsening BUN, creatinine, renal function. States that his last lab work was drawn in [address] here at this hospital in October 2020. In October his creatinine was 1.35 at that time. Discussed case with Dr. Bobby, recommends transferring to higher level of care for nephrology services as he may possibly require dialysis. Plan of care reviewed with patient and he is agreeable with plan. He request to transfer to [facility]. Discussed case with Dr. Moy, she accepted transfer. ECG Initial ECG Impression Date: July 18, 2021 Initial ECG Impression Time: 14:11 Initial ECG Rate: 47 Initial ECG Rhythm: S.Elias Initial ECG Intervals: Normal Initial ECG Intervals No ST elevation or Depression Initial ECG Impression: Nonspecific Changes Diagnostic Imaging Diagonstic Imaging: Xray Plain Films/CT/US/NM/MRI: chest Comments [facility]. [place], [place] NAME: JACQUELINE ELISE [facility] REC#: [id number] PT STATUS: REG ER : 1945 PHYSICIAN: YONATAN JACKSON CASTING MACHINE OPERATOR HELPER ADMIT DATE: 07/18/21/ER Draft Date of Exam:07/18/21 CHEST 1 VIEW, AP/PA ONLY INDICATION: Sepsis. Portable AP upright view of the chest is obtained with comparison made study of 11/15/2019 Overall heart size and pulmonary vascularity within normal limits. Surgical findings and mediastinum are again noted. There is no evidence of pneumothorax or consolidation. No pleural fluid is seen. IMPRESSION: No acute abnormality or change. Dictated on workstation # [id number] Dict: 07/18/21 1306 Trans: 07/18/21 1310 [id number] Interpreted by: ISHA CONTRERAS MD Electronically signed by: Departure Impression Primary Impression: Acute on chronic renal failure Additional Impression: Hypotension Disposition: XF SHT-TRM HOSP Condition: Stable Transfer Transfer Reason: Exceeds level of care Time Spoke to Accepting Phy: 15:[address] Moy at [facility] accepted transfer. Transfer Time: 15:31 Transfer Facility: [place], [place] Method of Transfer: EMS Departure-Patient Inst. Referrals: JOVAN BURTON DO (PCP/Family) Primary Care Physician YONATAN JACKSON CASTING MACHINE OPERATOR HELPER July 18, 2021 12:57
[2021-07-18 13:00] LABS: BASOPHILS % (AUTO) 1 % (0-10); EOSINOPHILS # (AUTO) 0.1 10^3/uL (0.0-0.3); EOSINOPHILS % (AUTO) 2 % (0-10); HEMATOCRIT 41 % (40-54); HEMOGLOBIN 13.5 g/dL (13.3-17.7); LYMPHOCYTES # (AUTO) 1.4 10^3/uL (1.0-4.0); LYMPHOCYTES % (AUTO) 25 % (12-44); MEAN CORPUSCULAR HEMOGLOBIN 30 pg (25-34); MEAN CORPUSCULAR HGB CONC 33 g/dL (32-36); MEAN CORPUSCULAR VOLUME 90 fL (80-99); MONOCYTES # (AUTO) 0.3 10^3/uL (0.0-1.0); MONOCYTES % (AUTO) 5 % (0-12); NEUTROPHILS # (AUTO) 3.9 10^3/uL (1.8-7.8); NEUTROPHILS % (AUTO) 68 % (42-75); PLATELET COUNT 162 10^3/uL (130-400); WHITE BLOOD COUNT 5.7 10^3/uL (4.3-11.0)
--- NOTE | 2021-07-18 13:10 | Diagnostic Imaging Report ---
INDICATION: Sepsis. Portable AP upright view of the chest is obtained with comparison made study of 11/15/2019 Overall heart size and pulmonary vascularity within normal limits. Surgical findings and mediastinum are again noted. There is no evidence of pneumothorax or consolidation. No pleural fluid is seen. IMPRESSION: No acute abnormality or change. Dictated by: Dictated on workstation # [id number]
[2021-07-18 13:14] LABS: ALBUMIN 4.7 GM/DL (3.2-4.5); CHLORIDE 108 MMOL/L (98-107); SODIUM 135 MMOL/L (135-145)
[2021-07-18 13:15] LABS: CALCIUM 9.7 MG/DL (8.5-10.1)
[2021-07-18 13:16] LABS: GLUCOSE 125 MG/DL (70-105)
[2021-07-18 13:18] LABS: BILIRUBIN,TOTAL 0.6 MG/DL (0.1-1.0); CARBON DIOXIDE 17 MMOL/L (21-32)
[2021-07-18 13:20] LABS: ALKALINE PHOSPHATASE 39 U/L (40-136); CREATININE SERUM 3.55 MG/DL (0.60-1.30); GFR ESTIMATED 17
[2021-07-18 13:21] LABS: BUN/CREATININE RATIO 26
[2021-07-18 13:23] LABS: ALANINE AMINOTRANSFERASE 19 U/L (0-55)
[2021-07-18 13:34] LABS: POTASSIUM 6.3 MMOL/L (3.6-5.0)
[2021-07-18 14:10] LABS: BILIRUBIN,URINE NEGATIVE (NEGATIVE); CLARITY,URINE CLEAR; COLOR,URINE YELLOW; GLUCOSE, URINE (UA) NEGATIVE (NEGATIVE); KETONES,URINE NEGATIVE (NEGATIVE); LEUKOCYTE ESTERASE ,URINE NEGATIVE (NEGATIVE); NITRITE,URINE NEGATIVE (NEGATIVE); PH,URINE 5.5 (5-9); PROTEIN,URINE NEGATIVE (NEGATIVE)
[2021-07-18 14:32] LABS: BACTERIA,URINE NEGATIVE /HPF; RBC,URINE RARE /HPF; SQUAMOUS EPITHELIAL CELL,UR RARE /HPF; WBC,URINE RARE /HPF
[2021-07-18 15:29] LABS: PROTHROMBIN TIME PATIENT 13.4 SEC (12.2-14.7)
[2021-07-18 16:07] VITALS: BP 107/48
== END 2021-07-18 16:14 | disposition short-term general hospital (02) ==
LOC: EDUNIT# 12:20 → ER 12:23
DX: N17.9 Acute kidney failure, unspecified (principal); I95.9 Hypotension, unspecified; R94.4 Abnormal results of kidney function studies; E87.5 Hyperkalemia; R50.9 Fever, unspecified; E11.9 Type 2 diabetes mellitus without complications; Z79.4 Long term (current) use of insulin
CPT/HCPCS: 36415; 71045; 80053; 81000; 83605; 84145; 84484; 85025; 85610; 85730; 87040; 87088; 93005

== ENCOUNTER → 2022-03-20 | Outpatient (CLI) | payer MEDICARE, OTHER | LOC: CARD 09:44 | PROVIDERS: ATTEND Physician Assistant | DX: I10 Essential (primary) hypertension (principal) | CPT/HCPCS: 93306 ==

== ENCOUNTER → 2022-03-26 | Outpatient (CLI) | payer OTHER ==
[~2022-03-26] VITALS: Ht 177 cm; Wt 91.0 kg
[~2022-03-26] MED LIST changes: +CATHETER FLUSH 10 ML SYR IVP PRN; +REGADENOSON 0.4 MG/5 ML SYR (LEXISCAN) IV ONE
[2022-03-26 09:27] VITALS: BP 132/79
--- NOTE | 2022-03-26 11:03 | Cardiology Stress Test Report ---
Stress Test Report Date of Procedure/Referring: Date of Procedure: Mar 26, 2022 PCP Jovan Freed DO Admitting Physician Admitting Physician: Attending Physician: Brittani Boland Indications: CAD Baseline Heart Rate: 63 Baseline Blood Pressure: Blood Pressure Systolic: 132 Blood Pressure Diastolic: 79 Baseline Vitals Vital Signs Date Time Temp Pulse Resp B/P (MAP) Pulse Ox O2 Delivery O2 Flow Rate FiO2 03/26/22 09:27 62 132/79 (96) Baseline EKG: Baseline EKG: NSR Summary After explaining the procedure to the patient, he signed a consent and then brought to the stress nuclear laboratory. Patient received 0.4 mg Lexiscan for stress test, ECG, heart rate and blood pressure were monitored continuously. Resting and stress dose of radio tracer were injected, imaging was acquired and reviewed in short axis, horizontal long axis and vertical long axis views. TID: 1.02 SSS: 1 SDS: 1 EF: 59 1. Patient tolerated Lexiscan well 2. No significant ischemia or infarction noted on SPECT images 3. Normal left ventricular size, ejection fraction 59% Copy Copies To 1: JOVAN FREED BASHAR J MD Mar 26, 2022 11:03
== END ==
LOC: CARD 07:32
PROVIDERS: ATTEND Physician Assistant
DX: I25.10 Atherosclerotic heart disease of native coronary artery without angina pectoris (principal)
CPT/HCPCS: 78452; 93017

== ENCOUNTER → 2022-09-04 | Outpatient (CLI) | payer MEDICARE ==
[~2022-09-04] MED LIST changes: -CATHETER FLUSH 10 ML SYR IVP PRN; -INSU100I29 SQ; +INSU100I30 SQ; -REGADENOSON 0.4 MG/5 ML SYR (LEXISCAN) IV ONE
--- NOTE | 2022-09-04 12:57 | Diagnostic Imaging Report ---
PROCEDURE: US Bilateral lower extremity arterial. TECHNIQUE: Multiple real-time grayscale images are obtained through both lower extremity arterial systems with color Doppler imaging and color Doppler spectral analysis. INDICATION: Lower extremity pain. COMPARISON: None. FINDINGS: Peak systolic velocities are as below. Right: NETWORK SUPPORT ADMINISTRATOR: 125 cm/sec Profunda: 69 cm/sec SFA: 94 cm/sec (proximal), 109 cm/sec (mid), 58 cm/sec (distal) Popliteal artery: 60 cm/sec Tibioperoneal trunk: Not visualized Peroneal artery not visualized Anterior tibial artery: Not visualized Posterior tibial artery: 67 cm/sec Dorsalis pedis: 49 cm/sec Triphasic flow seen throughout the right lower extremity arterial system. Left: NETWORK SUPPORT ADMINISTRATOR: 159 cm/sec Profunda: 165 cm/sec SFA: 109 cm/sec (proximal), 109 cm/sec (mid), 91 cm/sec (distal) Popliteal artery: 63 cm/sec Tibioperoneal trunk: not visualized Peroneal artery: not visualized Anterior tibial artery: not visualized Posterior tibial artery: 116 cm/sec Dorsalis pedis: 88 cm/sec Triphasic flow seen throughout the left lower extremity arterial system IMPRESSION: Multifocal atherosclerotic change within the lateral lower extremity arterial systems without apparent high-grade stenosis. Dictated by: Dictated on workstation # [id number]
== END ==
LOC: RAD 08:27
PROVIDERS: ATTEND Internal Medicine
DX: I70.209 Unspecified atherosclerosis of native arteries of extremities, unspecified extremity (principal)
CPT/HCPCS: 93925